=== PATIENT | male | born 1955 | race Caucasian/White ===

== ENCOUNTER 2024-05-21 13:08 | Outpatient (CLI) | payer MEDICARE, OTHER, SELFPAY ==
--- NOTE | ~2024-05-21 | PE_ITS ---
EXAMINATION: PET_PETPSMAST_PT DATE: 05/21/2024 15:25 INDICATION: Prostate cancer TECHNIQUE: 5.812 mCi of Illucix Ga-[id number]) was administered i.v. Low dose computed meredith graphy (CT) images were acquired from the base of the brain to the base of the brain to the proximal thighs for attenuation correction and anatomic localization. Positron emission tomography (PET) image s were acquired in the same distribution beginning 82 minutes after injection. Images including fused PET/CT images were reconstructed in axial, coronal, and sagittal planes. Automated exposure control technique was employed. The dose-length product was 1246.95mGy-cm. COMPARISON: None FINDINGS: Head/neck: Typical pattern of symmetric physiologic increased activity in the lacrimal, parotid and submandibula r glands as well as along the mucosa of the nasal and oral cavities, pharynx and hypopharynx. No path ologically enlarged cervical lymphadenopathy or suspicious foci of increased uptake in the visualized head or neck. Chest: Calcified right middle lobe nodule and calcified mediastinal lymph nodes consistent with old granulom atous disease. No suspicious pulmonary nodules, pneumonia, pulmonary edema or pleural effusion. Heart size normal. Atherosclerotic coronary artery calcific lesion. No pericardial effusion. Thoracic aort a normal in caliber. Abdomen/pelvis/proximal thighs: Physiologic renal accumulation and excretion of activity in the kidneys, bladder and along portions o f ureters. Prostatomegaly measuring 5.0 x 3.6 cm with regions of increased uptake bilaterally in the posterior prostate with maximal SUV of 5.4 on the right and large region with maximal severe of 6.3 o n the left consistent with reported biopsy-proven prostate cancer. Normal degree and slightly heterog enous pattern of increased uptake throughout the liver and spleen without radiologic correlate or dom inant PSMA avid lesion. Cholecystectomy clips at the gallbladder fossa. The pancreas and bilateral ad renal glands are normal. Moderate uptake scattered throughout the bowels with typical duodenal and pr oximal jejunal predominance and without radiologic correlate, also likely physiologic. No other abnor mal foci of increased uptake or pathologically enlarged lymphadenopathy in the abdomen, pelvis or pro ximal thighs. Musculoskeletal: L5 spondylolisthesis with bilateral pars in particular is defects and 10 mm anterolisthesis on S1. No suspicious lytic, blastic or PSA may avid bone lesions to suggest metastatic disease. IMPRESSION: 1. 2 regions of increased uptake in the posterior prostate, the larger and more intense on the left c onsistent with primary prostate cancer. No lesion suspicious for metastatic disease in the neck, ches t, abdomen or pelvis. Reviewed, dictated and finalized at location A. [employer] IMPRESSION: 1. 2 regions of increased uptake in the posterior prostate, the larger and more intense on the left consistent with primary prostate cancer. No lesion suspici ous for metastatic disease in the neck, chest, abdomen or pelvis.
--- OUTSIDE RECORDS SUMMARY | 2024-05-21 13:56 | XMS_ITS | Patient Health Summary ---
Author Organization [facility] Address [address] [place] [address] Care Team Providers [employer] Name Role Phone Kaela Chacon DARSHAN-SOUND EFFECTS TECHNICIAN Primary Care Provider Note from [facility],non-owned Affiliates and Associated Physician Practices is amultiple site organization consisting of ambulatory clinics and hospital sitesin [place], [place], [place] and [place]. This disclosure is being madepursuant to the Care Everywhere program and may not contain all information available regarding this patient. Last updated 17.[facility] Allergies No known active allergies Medications * Be aware that medications may not be up to date on this document. Alwaysverify current medications with the patient. * aspirin (Aspirin) 81 MG chew tablet(Started 12/08/2022) Take 1 (one) tablet by mouth once daily * atropine 1 % ophthalmic solution(Started 01/13/2023) Instill 1 (one) drop into left eye 3 times daily 2 refills by 01/13/2024 * brimonidine (Alphagan) 0.2 % ophthalmic solution(Started 01/13/2023) Instill 1 (one) drop into left eye 3 times daily 4 refills by 01/13/2024 * dorzolamide-timolol (Cosopt) 22.3-6.8 MG/ML ophthalmic solution(Started 01/13/2023) Instill 1 (one) drop into left eye 3 times daily 4 refills by 01/13/2024 * Cholecalciferol 125 MCG (5000 UT)(Started 12/22/2022) Take 125 mcg by mouth once daily * vitamin B-12 (Cyanocobalamin) 500 MCG tablet(Started 12/22/2022) Take 2 (two) tablets by mouth once daily * rosuvastatin (Crestor) 40 MG tablet(Started 01/02/2023) Take 1 (one) tablet by mouth once daily * lisinopril (Prinivil; Zestril) 10 MG tablet(Started 03/10/2023) Take 1 (one) tablet by mouth once daily * gabapentin (Neurontin) 300 MG capsule(Started 07/25/2023) Take 1 (one) capsule by mouth every 12 hours Reasons: Restless Leg Syndrome * acetaminophen (Tylenol) 325 MG tablet(Started 07/25/2023) Take 2 (two) tablets by mouth every 6 hours as needed Maximum allowable Acetaminophen amount = 4 Grams (4000 mg) / 24 hours. * ondansetron, disintegrating, (Zofran ODT) 4 MG tablet(Started 07/25/2023) Take 1 (one) tablet by mouth every 6 hours as needed for Nausea/Vomiting Allow tablet to dissolve on the tongue * niMODipine (Nimotop) 30 MG capsule(Started 07/25/2023) Take 2 (two) capsules by mouth every 4 hours * polyethylene glycol 3350 (Miralax) 17 g packet(Started 07/26/2023) Take 17 (seventeen) g by mouth once daily * senna (Senokot) 8.6 MG tablet(Started 07/26/2023) Take 1 (one) tablet by mouth once daily * metoclopramide (Reglan) injection(Started 07/25/2023) 1 mL by Intravenous route every 6 hours as needed for Nausea/Vomiting * baclofen (Lioresal) 5 MG TABS(Started 07/26/2023) Take 0.5 (one-half) tablet by mouth once daily * prednisoLONE acetate (Pred Forte) 1 % ophthalmic suspension(Started 02/02/2024) INSTILL 1 DROP INTO LEFT EYE THREE TIMES DAILY * lisinopril (Prinivil; Zestril) 2.5 MG tablet Take 1 (one) tablet by mouth once daily Active Problems Problem Noted Date Diagnosed Date Nontraumatic intracerebral h emorrhage, unspecified cerebral location, unspecified laterality 07/10/2023 Central retinal artery occlusion of left eye 08/2022 Neovascular glaucoma, left, 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 Glaucoma suspect, right 01/12/2023 Weakness 12/02/2022 Hypertension, unspecified type 12/02/2022 Facial droop 12/02/2022 Acute ischemic left MCA stroke 12/02/2022 Right sided weakness 12/02/2022 Received tissue plasminogen activator (tPA) less than 24 hours prior to arrival 12/02/2022 Social History Tobacco Use Types Packs/Day Years Used Date Smoking Tobacco: Former Cigarettes 0.3 40.6 1 983 - 12/02/2022 Smokeless Tobacco: Never Tobacco Cessation:Counseling Given: No Alcohol Use Standard Drinks/Week Comments Not Currently 10 (1 standard drink = 0.6 oz pu re alcohol) AUDIT-C Answer Date Recorded Q1: How often do you have a drink containing alcohol? Never 02/08/2024 Q2: How many drinks containi ng alcohol do you have on a typical day when you are drinking? Patient does not drink Q3: How often do you have si x or more drinks on one occasion? Never 02/08/2024 Overall Financial Resource Strain (CARDIA) Answe r Date Recorded How hard is it for you to pa y for the very basics like food, housing, medical care, and heating? Not very hard 07/11/2023 PHQ-2 Answer Date Recorded Patient Health Questionnaire-2 Score 0 07/12/2023 [facility] - Occupational Stress Questionnaire Answer Date Recorded Do you feel stress - tense, restless, nervous, or anxious, or unable to sleep at night because your mind is troubled all the time - these days? Not at all 07/11/2023 Hunger Vital Sign Answer Date Recorded Within the past 12 months, y ou worried that your food would run out before you got the money to buy more. Never true 07/11/19 24 Within the past 12 months, t he food you bought just didn't last and you didn't have money to get more. Never true 07/11/2023 PRAPARE - Transportation Answer Date Re corded In the past 12 months, has l ack of transportation kept you from medical appointments or from getting medications? No 05/2023 In the past 12 months, has l ack of transportation kept you from meetings, work, or from getting things needed for daily living? No 07/11/2023 Housing Stability Vital Sign Answer Chris e Recorded In the last 12 months, was t here a time when you were not able to pay the mortgage or rent on time? No 07/11/2023 In the last 12 months, how many places have you lived? 1 07/11/2023 In the last 12 months, was t here a time when you did not have a steady place to sleep or slept in a jail (including now)? No 07/11/2023 Sex and Gender Information Value Date Recorded Sex Assigned at Not on file Gender Identity Not on file Sexual Orientation Not on file Last Filed Vital Signs Vital Sign Reading Time Taken Comments Blood Pressure 124/63 04/24/2024 10:01 AM AUTOMOTIVE ENGINEERING TECHNICIAN Pulse 72 04/24/2024 9:51 AM AUTOMOTIVE ENGINEERING TECHNICIAN Temperature 36.4 C (97.5 F) 04/24/2024 9:51 AM AUTOMOTIVE ENGINEERING TECHNICIAN Respiratory Rate 12 04/24/2024 9:51 AM AUTOMOTIVE ENGINEERING TECHNICIAN Oxygen Saturation 96% 04/24/2024 9:51 AM AUTOMOTIVE ENGINEERING TECHNICIAN Inhaled Oxygen Concentration - - Weight 98.3 kg (216 lb 12.8 oz) 04/24/2024 8:14 AM AUTOMOTIVE ENGINEERING TECHNICIAN Height 185.4 cm (6' 1 ) 04/24/2024 8:14 AM AUTOMOTIVE ENGINEERING TECHNICIAN Body Mass Index 28.6 04/24/2024 8:14 AM AUTOMOTIVE ENGINEERING TECHNICIAN Medical Devices Implanted Type Area Wardrobe Attendant Device Identifier Shelf Expiration Date Model / Serial / Lot Coil Hydroframe Hdrcl Vtrk 6cm 3mm 10 Implanted:Qty: 1 on 07/12/2023 by Daren Rudolph MD at [facility] Right: [employer] 11/07/2026 [id number] / / [id number] Procedures * AR CILIARY BDY DESTRUC; CYCLOPHOTOCOAG TRANSSCLERAL(Performed 04/24/2024) Performed for Neovascular glaucoma, left, severe stage * CT ANGIO BRAIN(Performed 02/20/2024) Performed for Cerebral aneurysm (HCC) * IR CAROTID CEREBRAL ANGIOGRAM(Performed 02/08/2024) Performed for Cerebral aneurysm (HCC) * BASIC METABOLIC PANEL (CALCIUM TOTAL)(Performed 02/08/2024) Performed for Cerebral aneurysm (HCC) * PT-INR SLH(Performed 02/08/2024) Performed for Cerebral aneurysm (HCC), Other specified hemorrhagic conditions (HCC) * CBC W/O DIFFERENTIAL(Performed 02/08/2024) Performed for Cerebral aneurysm (HCC) * CT HEAD WO CONTRAST(Performed 09/05/2023) Performed for Cerebral aneurysm (HCC) * MAGNESIUM BLOOD(Performed 07/26/2023) Performed for Nontraumatic intracerebral hemorrhage, unspecified cerebral location, unspecified laterality (HCC) * PHOSPHORUS BLOOD(Performed 07/26/2023) Performed for Nontraumatic intracerebral hemorrhage, unspecified cerebral location, unspecified laterality (HCC) * CBC W/O DIFFERENTIAL(Performed 07/26/2023) Performed for Nontraumatic intracerebral hemorrhage, unspecified cerebral location, unspecified laterality (HCC) * BASIC METABOLIC PANEL (CALCIUM TOTAL)(Performed 07/26/2023) Performed for Nontraumatic intracerebral hemorrhage, unspecified cerebral location, unspecified laterality (HCC) * MAGNESIUM BLOOD(Performed 07/25/2023) Performed for Nontraumatic intracerebral hemorrhage, unspecified cerebral location, unspecified laterality (HCC) * PHOSPHORUS BLOOD(Performed 07/25/2023) Performed for Nontraumatic intracerebral hemorrhage, unspecified cerebral location, unspecified laterality (HCC) * CBC W/O DIFFERENTIAL(Performed 07/25/2023) Performed for Nontraumatic intracerebral hemorrhage, unspecified cerebral location, unspecified laterality (HCC) * BASIC METABOLIC PANEL (CALCIUM TOTAL)(Performed 07/25/2023) Performed for Nontraumatic intracerebral hemorrhage, unspecified cerebral location, unspecified laterality (HCC) * MAGNESIUM BLOOD(Performed 07/23/2023) Performed for Nontraumatic intracerebral hemorrhage, unspecified cerebral location, unspecified laterality (HCC) * PHOSPHORUS BLOOD(Performed 07/23/2023) Performed for Nontraumatic intracerebral hemorrhage, unspecified cerebral location, unspecified laterality (HCC) * CBC W/O DIFFERENTIAL(Performed 07/23/2023) Performed for Nontraumatic intracerebral hemorrhage, unspecified cerebral location, unspecified laterality (HCC) * BASIC METABOLIC PANEL (CALCIUM TOTAL)(Performed 07/23/2023) Performed for Nontraumatic intracerebral hemorrhage, unspecified cerebral location, unspecified laterality (HCC) * GLUCOSE - POINT OF CARE(Performed 07/23/2023) * GLUCOSE - POINT OF CARE(Performed 07/23/2023) * MAGNESIUM BLOOD(Performed 07/22/2023) Performed for Nontraumatic intracerebral hemorrhage, unspecified cerebral location, unspecified laterality (HCC) * PHOSPHORUS BLOOD(Performed 07/22/2023) Performed for Nontraumatic intracerebral hemorrhage, unspecified cerebral location, unspecified laterality (HCC) * CBC W/O DIFFERENTIAL(Performed 07/22/2023) Performed for Nontraumatic intracerebral hemorrhage, unspecified cerebral location, unspecified laterality (HCC) * BASIC METABOLIC PANEL (CALCIUM TOTAL)(Performed 07/22/2023) Performed for Nontraumatic intracerebral hemorrhage, unspecified cerebral location, unspecified laterality (HCC) * MAGNESIUM BLOOD(Performed 07/21/2023) Performed for Nontraumatic intracerebral hemorrhage, unspecified cerebral location, unspecified laterality (HCC) * PHOSPHORUS BLOOD(Performed 07/21/2023) Performed for Nontraumatic intracerebral hemorrhage, unspecified cerebral location, unspecified laterality (HCC) * CBC W/O DIFFERENTIAL(Performed 07/21/2023) Performed for Nontraumatic intracerebral hemorrhage, unspecified cerebral location, unspecified laterality (HCC) * BASIC METABOLIC PANEL (CALCIUM TOTAL)(Performed 07/21/2023) Performed for Nontraumatic intracerebral hemorrhage, unspecified cerebral location, unspecified laterality (HCC) * VAS TRANSCRANIAL DOPPLER COMP(Performed 07/21/2023) Performed for Right sided weakness * MAGNESIUM BLOOD(Performed 07/20/2023) Performed for Nontraumatic intracerebral hemorrhage, unspecified cerebral location, unspecified laterality (HCC) * PHOSPHORUS BLOOD(Performed 07/20/2023) Performed for Nontraumatic intracerebral hemorrhage, unspecified cerebral location, unspecified laterality (HCC) * CBC W/O DIFFERENTIAL(Performed 07/20/2023) Performed for Nontraumatic intracerebral hemorrhage, unspecified cerebral location, unspecified laterality (HCC) * BASIC METABOLIC PANEL (CALCIUM TOTAL)(Performed 07/20/2023) Performed for Nontraumatic intracerebral hemorrhage, unspecified cerebral location, unspecified laterality (HCC) * VAS TRANSCRANIAL DOPPLER COMP(Performed 07/20/2023) Performed for Right sided weakness * MAGNESIUM BLOOD(Performed 07/19/2023) Performed for Nontraumatic intracerebral hemorrhage, unspecified cerebral location, unspecified laterality (HCC) * PHOSPHORUS BLOOD(Performed 07/19/2023) Performed for Nontraumatic intracerebral hemorrhage, unspecified cerebral location, unspecified laterality (HCC) * CBC W/O DIFFERENTIAL(Performed 07/19/2023) Performed for Nontraumatic intracerebral hemorrhage, unspecified cerebral location, unspecified laterality (HCC) * BASIC METABOLIC PANEL (CALCIUM TOTAL)(Performed 07/19/2023) Performed for Nontraumatic intracerebral hemorrhage, unspecified cerebral location, unspecified laterality (HCC) * VAS TRANSCRANIAL DOPPLER COMP(Performed 07/19/2023) Performed for Right sided weakness * MAGNESIUM BLOOD(Performed 07/18/2023) Performed for Nontraumatic intracerebral hemorrhage, unspecified cerebral location, unspecified laterality (HCC) * PHOSPHORUS BLOOD(Performed 07/18/2023) Performed for Nontraumatic intracerebral hemorrhage, unspecified cerebral location, unspecified laterality (HCC) * CBC W/O DIFFERENTIAL(Performed 07/18/2023) Performed for Nontraumatic intracerebral hemorrhage, unspecified cerebral location, unspecified laterality (HCC) * BASIC METABOLIC PANEL (CALCIUM TOTAL)(Performed 07/18/2023) Performed for Nontraumatic intracerebral hemorrhage, unspecified cerebral location, unspecified laterality (HCC) * VAS TRANSCRANIAL DOPPLER COMP(Performed 07/18/2023) Performed for Right sided weakness * MAGNESIUM BLOOD(Performed 07/18/2023) Performed for Nontraumatic intracerebral hemorrhage, unspecified cerebral location, unspecified laterality (HCC) * PHOSPHORUS BLOOD(Performed 07/18/2023) Performed for Nontraumatic intracerebral hemorrhage, unspecified cerebral location, unspecified laterality (HCC) * CBC W/O DIFFERENTIAL(Performed 07/18/2023) Performed for Nontraumatic intracerebral hemorrhage, unspecified cerebral location, unspecified laterality (HCC) * BASIC METABOLIC PANEL (CALCIUM TOTAL)(Performed 07/18/2023) Performed for Nontraumatic intracerebral hemorrhage, unspecified cerebral location, unspecified laterality (HCC) * VAS TRANSCRANIAL DOPPLER COMP(Performed 07/17/2023) Performed for Cerebral aneurysm (HCC) * MAGNESIUM BLOOD(Performed 07/17/2023) Performed for Nontraumatic intracerebral hemorrhage, unspecified cerebral location, unspecified laterality (HCC) * PHOSPHORUS BLOOD(Performed 07/17/2023) Performed for Nontraumatic intracerebral hemorrhage, unspecified cerebral location, unspecified laterality (HCC) * CBC W/O DIFFERENTIAL(Performed 07/17/2023) Performed for Nontraumatic intracerebral hemorrhage, unspecified cerebral location, unspecified laterality (HCC) * BASIC METABOLIC PANEL (CALCIUM TOTAL)(Performed 07/17/2023) Performed for Nontraumatic intracerebral hemorrhage, unspecified cerebral location, unspecified laterality (HCC) * MAGNESIUM BLOOD(Performed 07/16/2023) Performed for Nontraumatic intracerebral hemorrhage, unspecified cerebral location, unspecified laterality (HCC) * PHOSPHORUS BLOOD(Performed 07/16/2023) Performed for Nontraumatic intracerebral hemorrhage, unspecified cerebral location, unspecified laterality (HCC) * CBC W/O DIFFERENTIAL(Performed 07/16/2023) Performed for Nontraumatic intracerebral hemorrhage, unspecified cerebral location, unspecified laterality (HCC) * BASIC METABOLIC PANEL (CALCIUM TOTAL)(Performed 07/16/2023) Performed for Nontraumatic intracerebral hemorrhage, unspecified cerebral location, unspecified laterality (HCC) * CT ANGIO BRAIN AND NECK(Performed 07/14/2023) Performed for Right sided weakness * MAGNESIUM BLOOD(Performed 07/14/2023) Performed for Nontraumatic intracerebral hemorrhage, unspecified cerebral location, unspecified laterality (HCC) * PHOSPHORUS BLOOD(Performed 07/14/2023) Performed for Nontraumatic intracerebral hemorrhage, unspecified cerebral location, unspecified laterality (HCC) * CBC W/O DIFFERENTIAL(Performed 07/14/2023) Performed for Nontraumatic intracerebral hemorrhage, unspecified cerebral location, unspecified laterality (HCC) * BASIC METABOLIC PANEL (CALCIUM TOTAL)(Performed 07/14/2023) Performed for Nontraumatic intracerebral hemorrhage, unspecified cerebral location, unspecified laterality (HCC) * CT HEAD WO CONTRAST(Performed 07/14/2023) Performed for Nontraumatic intracerebral hemorrhage, unspecified cerebral location, unspecified laterality (HCC) * VAS TRANSCRANIAL DOPPLER COMP(Performed 07/14/2023) Performed for Nontraumatic intracerebral hemorrhage, unspecified cerebral location, unspecified laterality (HCC) * MAGNESIUM BLOOD(Performed 07/14/2023) Performed for Nontraumatic intracerebral hemorrhage, unspecified cerebral location, unspecified laterality (HCC) * PHOSPHORUS BLOOD(Performed 07/14/2023) Performed for Nontraumatic intracerebral hemorrhage, unspecified cerebral location, unspecified laterality (HCC) * CBC W/O DIFFERENTIAL(Performed 07/14/2023) Performed for Nontraumatic intracerebral hemorrhage, unspecified cerebral location, unspecified laterality (HCC) * BASIC METABOLIC PANEL (CALCIUM TOTAL)(Performed 07/14/2023) Performed for Nontraumatic intracerebral hemorrhage, unspecified cerebral location, unspecified laterality (HCC) * VAS TRANSCRANIAL DOPPLER COMP(Performed 07/13/2023) Performed for Nontraumatic intracerebral hemorrhage, unspecified cerebral location, unspecified laterality (HCC), Cerebral aneurysm (HCC) * MAGNESIUM BLOOD(Performed 07/12/2023) Performed for Nontraumatic intracerebral hemorrhage, unspecified cerebral location, unspecified laterality (HCC) * PHOSPHORUS BLOOD(Performed 07/12/2023) Performed for Nontraumatic intracerebral hemorrhage, unspecified cerebral location, unspecified laterality (HCC) * CBC W/O DIFFERENTIAL(Performed 07/12/2023) Performed for Nontraumatic intracerebral hemorrhage, unspecified cerebral location, unspecified laterality (HCC) * BASIC METABOLIC PANEL (CALCIUM TOTAL)(Performed 07/12/2023) Performed for Nontraumatic intracerebral hemorrhage, unspecified cerebral location, unspecified laterality (HCC) * VAS TRANSCRANIAL DOPPLER COMP(Performed 07/12/2023) Performed for Nontraumatic intracerebral hemorrhage, unspecified cerebral location, unspecified laterality (HCC), Cerebral aneurysm (HCC) * IR CAROTID CEREBRAL ANGIOGRAM(Performed 07/12/2023) Performed for Nontraumatic intracerebral hemorrhage, unspecified cerebral location, unspecified laterality (HCC) * ENDOTRACHEAL TUBE NOTE(Performed 07/12/2023) * ARTERIAL LINE NOTE(Performed 07/12/2023) * MAGNESIUM BLOOD(Performed 07/12/2023) Performed for Nontraumatic intracerebral hemorrhage, unspecified cerebral location, unspecified laterality (HCC) * PHOSPHORUS BLOOD(Performed 07/12/2023) Performed for Nontraumatic intracerebral hemorrhage, unspecified cerebral location, unspecified laterality (HCC) * CBC W/O DIFFERENTIAL(Performed 07/12/2023) Performed for Nontraumatic intracerebral hemorrhage, unspecified cerebral location, unspecified laterality (HCC) * BASIC METABOLIC PANEL (CALCIUM TOTAL)(Performed 07/12/2023) Performed for Nontraumatic intracerebral hemorrhage, unspecified cerebral location, unspecified laterality (HCC) * MRI ANGIO BRAIN ARTERIAL WO CONT(Performed 07/11/2023) Performed for Cerebral aneurysm (HCC) * MRI BRAIN WO CONTRAST(Performed 07/11/2023) Performed for Nontraumatic intracerebral hemorrhage, unspecified cerebral location, unspecified laterality (HCC) * CT ANGIO BRAIN AND NECK(Performed 07/11/2023) Performed for Nontraumatic intracerebral hemorrhage, unspecified cerebral location, unspecified laterality (HCC) * PHOSPHORUS BLOOD(Performed 07/11/2023) Performed for Nontraumatic intracerebral hemorrhage, unspecified cerebral location, unspecified laterality (HCC) * MAGNESIUM BLOOD(Performed 07/11/2023) Performed for Nontraumatic intracerebral hemorrhage, unspecified cerebral location, unspecified laterality (HCC) * PTT SLH(Performed 07/11/2023) Performed for Nontraumatic intracerebral hemorrhage, unspecified cerebral location, unspecified laterality (HCC) * PT-INR SLH(Performed 07/11/2023) Performed for Nontraumatic intracerebral hemorrhage, unspecified cerebral location, unspecified laterality (HCC) * CBC W AUTO DIFFERENTIAL(Performed 07/11/2023) Performed for Nontraumatic intracerebral hemorrhage, unspecified cerebral location, unspecified laterality (HCC) * BASIC METABOLIC PANEL (CALCIUM TOTAL)(Performed 07/11/2023) Performed for Nontraumatic intracerebral hemorrhage, unspecified cerebral location, unspecified laterality (HCC) * TROPONIN-I HIGH SENSITIVE REFLEX 1HOUR(Performed 07/10/2023) * GLUCOSE - POINT OF CARE(Performed 07/10/2023) * TYPE + SCREEN PANEL(Performed 07/10/2023) * TROPONIN-I HIGH SENSITIVE BASELINE + 1HR(Performed 07/10/2023) * PT-INR SLH(Performed 07/10/2023) * COMPREHENSIVE METABOLIC PANEL(Performed 07/10/2023) * CBC W AUTO DIFFERENTIAL(Performed 07/10/2023) * CT ANGIO BRAIN AND NECK(Performed 03/13/2023) Performed for Cerebrovascular accident (CVA), unspecified mechanism (HCC) * CREATININE - POCT INTERFACED(Performed 03/13/2023) * GLUCOSE - POINT OF CARE(Performed 12/07/2022) * GLUCOSE - POINT OF CARE(Performed 12/07/2022) * GLUCOSE - POINT OF CARE(Performed 12/07/2022) * PHOSPHORUS BLOOD(Performed 12/07/2022) * MAGNESIUM BLOOD(Performed 12/07/2022) * BASIC METABOLIC PANEL (CALCIUM TOTAL)(Performed 12/07/2022) * CBC W/O DIFFERENTIAL(Performed 12/07/2022) * GLUCOSE - POINT OF CARE(Performed 12/06/2022) * GLUCOSE - POINT OF CARE(Performed 12/06/2022) * GLUCOSE - POINT OF CARE(Performed 12/06/2022) * GLUCOSE - POINT OF CARE(Performed 12/06/2022) * PHOSPHORUS BLOOD(Performed 12/06/2022) * MAGNESIUM BLOOD(Performed 12/06/2022) * CBC W/O DIFFERENTIAL(Performed 12/06/2022) * BASIC METABOLIC PANEL (CALCIUM TOTAL)(Performed 12/06/2022) * GLUCOSE - POINT OF CARE(Performed 12/05/2022) * GLUCOSE - POINT OF CARE(Performed 12/05/2022) * CARDIAC EKG ORDER(Performed 12/05/2022) * FL SWALLOWING FUNCTION STUDY(Performed 12/05/2022) Performed for Acute ischemic left MCA stroke (HCC) * HEMOGLOBIN A1C(Performed 12/05/2022) * LIPID PROFILE(Performed 12/05/2022) * GLUCOSE - POINT OF CARE(Performed 12/05/2022) * VAS CAROTID DUPLEX LTD(Performed 12/05/2022) Performed for Acute ischemic left MCA stroke (HCC) * VAS TRANSCRANIAL DOPPLER COMP(Performed 12/05/2022) Performed for Acute ischemic left MCA stroke (HCC) * XR CHEST 1VW PORTABLE(Performed 12/05/2022) Performed for Weakness * GLUCOSE - POINT OF CARE(Performed 12/05/2022) * PHOSPHORUS BLOOD(Performed 12/05/2022) * MAGNESIUM BLOOD(Performed 12/05/2022) * CBC W/O DIFFERENTIAL(Performed 12/05/2022) * BASIC METABOLIC PANEL (CALCIUM TOTAL)(Performed 12/05/2022) * GLUCOSE - POINT OF CARE(Performed 12/04/2022) * GLUCOSE - POINT OF CARE(Performed 12/04/2022) * GLUCOSE - POINT OF CARE(Performed 12/04/2022) * XR ABDOMEN KUB PORTABLE(Performed 12/04/2022) Performed for Acute ischemic left MCA stroke (HCC) * XR ABDOMEN KUB PORTABLE(Performed 12/04/2022) Performed for Acute ischemic left MCA stroke (HCC) * XR ABDOMEN KUB PORTABLE(Performed 12/04/2022) Performed for Acute ischemic left MCA stroke (HCC) * PHOSPHORUS BLOOD(Performed 12/04/2022) * MAGNESIUM BLOOD(Performed 12/04/2022) * CBC W/O DIFFERENTIAL(Performed 12/04/2022) * BASIC METABOLIC PANEL (CALCIUM TOTAL)(Performed 12/04/2022) * XR CHEST 1VW PORTABLE(Performed 12/03/2022) Performed for Acute ischemic left MCA stroke (HCC) * GLUCOSE - POINT OF CARE(Performed 12/03/2022) * XR ABDOMEN KUB(Performed 12/03/2022) Performed for Acute ischemic left MCA stroke (HCC) * GLUCOSE - POINT OF CARE(Performed 12/03/2022) * TROPONIN-I HIGH SENSITIVE REFLEX 1HOUR(Performed 12/03/2022) * TROPONIN-I HIGH SENSITIVE BASELINE + 1HR(Performed 12/03/2022) * GLUCOSE - POINT OF CARE(Performed 12/03/2022) * GLUCOSE - POINT OF CARE(Performed 12/03/2022) * CT HEAD WO CONTRAST(Performed 12/03/2022) Performed for Weakness * BLOOD TYPE VERIFICATION(Performed 12/03/2022) * PHOSPHORUS BLOOD(Performed 12/02/2022) * MAGNESIUM BLOOD(Performed 12/02/2022) * CBC W/O DIFFERENTIAL(Performed 12/02/2022) * BASIC METABOLIC PANEL (CALCIUM TOTAL)(Performed 12/02/2022) * GLUCOSE - POINT OF CARE(Performed 12/02/2022) * MRI BRAIN WO CONTRAST(Performed 12/02/2022) Performed for Acute ischemic left MCA stroke (HCC) * ECHO COMPLETE W CONTRAST W BUBBLE STUDY(Performed 12/02/2022) Performed for Acute ischemic left MCA stroke (HCC) * CT CEREBRAL PERFUSION ANALYSIS(Performed 12/02/2022) Performed for Weakness * CT ANGIO BRAIN NECK STROKE(Performed 12/02/2022) Performed for Weakness * CT BRAIN STROKE(Performed 12/02/2022) Performed for Weakness * IR INTRACRANIAL MECH THROMBECT(Performed 12/02/2022) Performed for Acute ischemic left MCA stroke (HCC) * ARTERIAL LINE NOTE(Performed 12/02/2022) * ENDOTRACHEAL TUBE NOTE(Performed 12/02/2022) * TYPE + SCREEN PANEL(Performed 12/02/2022) * PT-INR [facility](Performed 12/02/2022) * COMPREHENSIVE METABOLIC PANEL(Performed 12/02/2022) * CBC W AUTO DIFFERENTIAL(Performed 12/02/2022) * EKG 12-LEAD(Performed 12/02/2022) Performed for Weakness Results * CT ANGIO BRAIN (02/20/2024 9:51 AM AUTOMOTIVE ENGINEERING TECHNICIAN) Anatomical Region Laterality Modality Head Computed Tomogra phy 02/20/2024 10:3 2 AM AUTOMOTIVE ENGINEERING TECHNICIAN Impressions 02/20/2024 10:46 AM AUTOMOTIVE ENGINEERING TECHNICIAN IMPRESSION: 1. No acute intracranial hemorrhage. 2. 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 Accounting for the beam hardening artifacts from the embolization coil, no evidence of residual or recurrent aneurysm. 3. 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 > Interpreting Provider: Cailin Swift MD on 02/20/2024 10:46 AM Narrative 02/20/2024 10:46 AM AUTOMOTIVE ENGINEERING TECHNICIAN PROCEDURE: CT ANGIO BRAIN, DATE/TIME OF EXAM: 02/20/2024 9:52 AM, LOCATION [facility] INDICATION: I67.1: Cerebral aneurysm (HCC) ADDITIONAL CLINICAL INFORMATION: Ordering Provider Reason For Exam: Technologist Note: Additional: EXAMINATION: Computed tomographic (CT) angiography of the head without and with contrast TECHNIQUE: CT of the head was performed without contrast according to standard protocol. Then CT angiography of the head was obtained after the uneventful administration of 100 mL Isovue-370 intravenous contrast. Three dimensional postprocessing was performed by the technologist and sent to the workstation for review. COMPARISON: 08/28/2023 and 07/14/2023. FINDINGS: Non-angiographic findings: Redemonstration of an embolization coil in the region of the anterior communicating artery. Some streaky and beam hardening artifacts partially obscure the adjacent structures. No acute intracranial hemorrhage or intra- or extra-axial fluid collections are identified. There is mild cerebral volume loss with associated ex vacuo ventricular dilatation. Redemonstration of chronic infarcts in the left basal ganglia, crenshaw radiata and the left insula. This bar The basal cisterns are patent. No mass effect or midline shift is seen. The garcia-white matter differentiation is normal. The visualized portions of the orbits, paranasal sinuses, and mastoids appear normal. No acute calvarial fracture is identified. Angiographic findings: Redemonstration of complete occlusion of the left internal carotid artery with distal reconstitution at its terminus. Atherosclerotic disease in the distal right ICA without significant stenosis. The anterior cerebral arteries are patent. The middle cerebral arteries are patent. The posterior cerebral arteries are patent. The distal vertebral arteries are patent. The basilar artery is patent patent. Accounting for the beam hardening artifacts from the embolization coil in the anterior communicating artery aneurysm, no evidence of residual or recurrent aneurysm. Procedure Note Cailin Swift MD - 02/20/2024 PROCEDURE: CT ANGIO BRAIN, DATE/TIME OF EXAM: 02/20/2024 9:52 AM, LOCATION [facility] INDICATION: I67.1: Cerebral aneurysm (HCC) ADDITIONAL CLINICAL INFORMATION: Ordering Provider Reason For Exam: Technologist Note: Additional: EXAMINATION: Computed tomographic (CT) angiography of the head withoutand with contrast TECHNIQUE: CT of the head was performed without contrast according to standard protocol. Then CT angiography of the head was obtained afterthe uneventful administration of 100 mL Isovue-370 intravenous contrast.Three dimensional postprocessing was performed by the technologist and sent to the workstation for review. COMPARISON: 08/28/2023 and 07/14/2023. FINDINGS: Non-angiographic findings: Redemonstration of an embolization coil in the region of the anterior communicating artery. Some streaky and beam hardening artifactspartially obscure the adjacent structures. No acute intracranial hemorrhage or intra- or extra-axial fluidcollections are identified. There is mild cerebral volume loss with associated exvacuo ventricular dilatation. Redemonstration of chronic infarcts in the left basal ganglia, crenshaw radiata and the left insula. This bar The basal cisterns are patent. No mass effect or midline shift is seen. The garcia-white matter differentiation is normal. The visualized portions of the orbits, paranasal sinuses, and mastoids appear normal. No acute calvarial fracture is identified. Angiographic findings: Redemonstration of complete occlusion of the left internal carotidartery with distal reconstitution at its terminus. Atherosclerotic disease inthe distal right ICA without significant stenosis. The anterior cerebral arteries are patent. The middle cerebral arteries are patent. The posterior cerebral arteries are patent. The distal vertebral arteriesare patent. The basilar artery is patent patent. Accounting for the beam hardening artifacts from the embolization coilin the anterior communicating artery aneurysm, no evidence of residual or recurrent aneurysm. IMPRESSION: 1. No acute intracranial hemorrhage. 2. 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 Accounting for the beam hardening artifacts from the embolization coil,no evidence of residual or recurrent aneurysm. 3. 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 > Interpreting Provider: Cailin Swift MD on 02/20/2024 10:46 AM Genoveva Wheeler INSURANCE ASSOCIATE-SOUND EFFECTS TECHNICIAN CT ORDERABLE S * IR Carotid Cerebral Angiogram (02/08/2024 10:52 AM CDT) Only the most recent of2 resultswithin the time period is included. 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 Daren Rudolph, was present and performed/supervised the entire procedure. Moderate sedation on this adult patient was ordered by me, administered intravenously in my presence, and monitored by the procedure nurse as an independent trained observer who was present throughout the procedure. The following parameters were monitored: oxygen saturation, heart rate, blood pressure, and response to care. For details on pre-moderate sedation and post-moderate sedation patient evaluation, please review the evaluation forms in [facility]. For details on monitored clinical parameters during the intra-service sedation time, please review the procedure nurse documentation in [facility]. IDaren MD have personally reviewed and interpreted this examination/study. 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 Interval hx has been unremarkable. Plan is for 6 month follow-up cerebral angiogram. Evaluator: Dr. Phong Rudolph Editor Newspaper(s): Nelia Murillo Vessels: Ultrasound Guided Access of Radial Artery Right Radial Artery Angiogram Right Internal Carotid Artery Angiogram: Cerebral Anesthesia: I, Dr. Phong Rudolph was personally present during the entire procedure. The entire procedure was performed under my supervision. Moderate sedation on this adult patient was ordered by the vat operator, administered intravenously in my presence, and monitored by the procedure nurse as an independent trained observer who was present throughout the procedure. The following parameters were monitored: oxygen saturation, heart rate, blood pressure, and response to care. Intra-service sedation start time was 1007 and end time was 1039 during which I was present. Total physician intra-service sedation time was 32 minutes. For details on sedation patient evaluation, please review the evaluation in [facility]. For details on monitored clinical parameters during the intra-service sedation time, please review the procedure nurse documentation in [facility]. Procedural detail: The risks, benefits, and alternatives to procedure were discussed in detail with the patient and his family. These included but were not limited to the risk of blood loss, vessel injury, stroke, renal injury, and contrast allergy. The patient was brought to the biplane angiography suite where he underwent prep and drape procedures. Limited ultrasound of the right radial artery demonstrated a patent vessel. A garcia scale image was documented. The right radial artery was accessed using a micropuncture needle. Following a series of exchanges, a 5 [place]i 11 cm Glidesheath slender was placed in the radial artery. A radial angiogram was performed through the sheath. A spasmolytic cocktail containing 3000u heparin, 2.5mg verapamil, and 200mcg of nitroglycerin was administered. A 5 [place]i Glidecath Oneal 2 diagnostic catheter along with a 0.035 Glidewire was navigated into the aortic arch. The catheter was used to select the right common carotid artery and cerebral angiogram was obtained. All catheters and sheaths were removed from the arterial system. Hemostasis was achieved using a Terumo radial band closure device. Hemostasis was immediate at the end of the closure procedure. The right radial artery pulse was palpable at the end of the closure procedure. The patient tolerated the procedure without immediate complications. He was returned to the recovery area in hemodynamically stable condition and neurologically unchanged. The estimated blood loss was less than 10 mL. A total of 9 minutes of fluoroscopic time and 25 ml of Isovue-300 contrast were utilized for the study. Findings: There was good arterial, capillary, and venous opacification of all angiographic runs. The right common carotid artery angiogram reveals a normal carotid bifurcation. The visualized branches of the external carotid artery are normal in course and caliber. The cervical segment of the internal carotid artery is normal in course and caliber. The internal carotid artery cerebral angiogram reveals a normal course and caliber of the intracranial segments of the internal carotid artery. The middle cerebral artery and anterior cerebral artery are also normal in course and caliber as is the venous drainage. A coil mass in the AComm is visualized with stable appearance and residual aneurysm neck. 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 Interval hx has been unremarkable. Plan is for 6 month follow-up cerebral angiogram. Evaluator: Dr. Phong Rudolph Editor Newspaper(s): Nelia Murillo Vessels: Ultrasound Guided Access of Radial Artery Right Radial Artery Angiogram Right Internal Carotid Artery Angiogram: Cerebral Anesthesia: I, Dr. Phong Rudolph was personally present during the entire procedure.The entire procedure was performed under my supervision. Moderate sedationon this adult patient was ordered by the vat operator, administeredintravenously in my presence, and monitored by the procedure nurse as an independent trained observer who was present throughout the procedure. The following parameters were monitored: oxygen saturation, heart rate, bloodpressure, and response to care. Intra-service sedation start time was 1007 and end time was 1039 during which I was present. Total physician intra-service sedation time was 32 minutes. For details on sedation patientevaluation, please review the evaluation in [facility]. For details on monitored clinical parameters during the intra-service sedation time, please review the procedure nurse documentation in [facility]. Procedural detail: The risks, benefits, and alternatives to procedure were discussed indetail with the patient and his family. These included but were not limited to the risk of blood loss, vessel injury, stroke, renal injury, andcontrast allergy. The patient was brought to the biplane angiography suite where he underwent prep and drape procedures. Limited ultrasound of the rightradial artery demonstrated a patent vessel. A garcia scale image was documented.The right radial artery was accessed using a micropuncture needle. Followinga series of exchanges, a 5 [place]i 11 cm Glidesheath slender was placed inthe radial artery. A radial angiogram was performed through the sheath. A spasmolytic cocktail containing 3000u heparin, 2.5mg verapamil, [id number] of nitroglycerin was administered. A 5 [place]i Glidecath Oneal 2 diagnostic catheter along with a 0.035 Glidewire was navigated into the aortic arch. The catheter was used to select the right common carotid artery and cerebral angiogram was obtained. All catheters and sheaths were removed from the arterial system.Hemostasis was achieved using a Terumo radial band closure device. Hemostasis was immediate at the end of the closure procedure. The right radial artery pulse was palpable at the end of the closure procedure. The patient tolerated the procedure without immediate complications. He was returned to the recovery area in hemodynamically stable conditionand neurologically unchanged. The estimated blood loss was less than 10 mL. A total of 9 minutes of fluoroscopic time and 25 ml of Isovue-300 contrast were utilized for the study. Findings: There was good arterial, capillary, and venous opacification of all angiographic runs. The right common carotid artery angiogram reveals a normal carotid bifurcation. The visualized branches of the external carotid artery are normal in course and caliber. The cervical segment of the internalcarotid artery is normal in course and caliber. The internal carotid artery cerebral angiogram reveals a normal course and caliber of theintracranial segments of the internal carotid artery. The middle cerebral artery and anterior cerebral artery are also normal in course and caliber as is the venous drainage. A coil mass in the AComm is visualized with stable appearance and residual aneurysm neck. Impression: Stable appearance of coiled AComA aneurysm with residual neck ofaneurysm; Krish and Tavares II occlusion I, Dr. Daren Rudolph, was present and performed/supervised theentire procedure. Moderate sedation on this adult patient was ordered by me, administered intravenously in my presence, and monitored by theprocedure nurse as an independent trained observer who was present throughout the procedure. The following parameters were monitored: oxygen saturation, heart rate, blood pressure, and response to care. For details on pre-moderate sedation and post-moderate sedation patient evaluation,please review the evaluation forms in [facility]. For details on monitored clinical parameters during the intra-service sedation time, please review the procedure nurse documentation in [facility]. I, Daren Rudolph MD have personally reviewed and interpreted this examination/study. > Interpreting Provider: Daren Rudolph MD on 02/20/2024 10:52 AM Daren Rudolph MD IR ORDERABLES * PT-INR [facility] (02/08/2024 8:57 AM CDT) Only the most recent of4 resultswithin the time period is included. PT 13.5 12.1 - 14.8 Seconds 02/08/2024 9:26 AM CDT [facility] INR 1.1 See Comment 02/08/2024 9:26 AM CDT [facility] Comment:The suggested therap eutic range for standard coumadin (warfarin) therapy is an INR of 2.0-3.0. For high-risk patients (Mechanical Mitral Valve Prosthesis, etc.), the suggested prophylactic therapeutic range is an INR of 2.5-3.5. Blood BLOOD SPECIMEN / Unknown Venipuncture / Unknown 02/08/2024 8:57 AM CDT 02/08/2024 9:02 AM CDT Azalia Murillo MD LAB - COAGULATION OR DERABLES [facility] [address] [place] [id number], [facility] [phone] * (ABNORMAL) CBC W/O DIFFERENTIAL (02/08/2024 8:57 AM CDT) Only the most recent of21 resultswithin the time period is included. WBC 4.8 4.0 - 10.7 x10E9/L 02/08/2024 9:31 AM CDT [facility] RBC Count 4.51 4.30 - 5.80 x10E12/L 02/08/2024 9:31 AM CDT [facility] Hemoglobin 12.4(L) 13.3 - 17.5 g/dL 02/08/2024 9:31 AM CDT [facility] Hematocrit 36.8(L) 38.7 - 51.1 % 02/08/2024 9:31 AM [facility] MCV 81.6 80.0 - 98.0 fL 02/08/2024 9:31 AM [facility] MCH 27.5 26.7 - 33.6 pg 02/08/2024 9:31 AM [facility] MCHC 33.7 31.7 - 36.3 g/dL 02/08/2024 9:31 AM [facility] RDW-CV 13.6 11.3 - 14.8 % 02/08/2024 9:31 AM [facility] Platelet Count 164 150 - 420 x10E9/L 02/08/2024 9:31 AM [facility] MPV 11.3 7.8 - 11.4 fL 02/08/2024 9:31 AM [facility] Blood BLOOD SPECIMEN / Unknown Venipuncture / Unknown 02/08/2024 8:57 AM CDT 02/08/2024 9:23 AM CDT Azalia Murillo MD LAB - HEMATOLOGY ORD ERABLES [address] [address], [facility] [phone] * BASIC METABOLIC PANEL (CALCIUM TOTAL) (02/08/2024 8:57 AM CDT) Only the most recent of22 resultswithin the time period is included. BUN 17 7 - 26 mg/dL 02/08/2024 9:55 AM [facility] Creatinine 0.77 0.71 - 1.16 mg/dL 02/08/2024 9:55 AM [facility] Sodium 138 136 - 145 mmol/L 02/08/2024 9:55 AM [facility] Potassium 4.1 3.5 - 4.5 mmol/L 02/08/2024 9:55 AM [facility] Chloride 106 98 - 107 mmol/L 02/08/2024 9:55 AM [facility] CO2 24 22 - 29 mmol/L 02/08/2024 9:55 AM [facility] Glucose 90 70 - 99 mg/dL 02/08/2024 9:55 AM T [facility] Calcium 9.1 8.4 - 10.2 mg/dL 02/08/2024 9:55 AM [facility] Anion Gap 8 6 - 16 02/08/2024 9:55 AM T [facility] BUN/Creatinine Ratio 22 7 - 23 02/08/2024 9:55 AM T [facility] Osmolality Calculated 287 275 - 295 mOsm/kg 02/08/2024 9:55 AM T [facility] eGFR by CKD-EPI >90 >=90 mL/min/1.7 3 m2 02/08/2024 9:55 AM T [facility] Blood BLOOD SPECIMEN / Unknown Venipuncture / Unknown 02/08/2024 8:57 AM CDT 02/08/2024 9:23 AM CDT Azalia Murillo MD LAB - CHEMISTRY [facility] Organization Address City/State/ZIP Co de Phone Number [facility] [address] [place] [address], [facility] [phone] * CT HEAD WO CONTRAST (09/05/2023 2:54 PM CDT) Only the most recent of3 resultswithin the time period is included. Anatomical Region Laterality Modality Head Computed Tomogra phy 09/05/2023 3:29 PM CDT Impressions 09/06/2023 1:08 PM CDT IMPRESSION: 1.Complete resolution of previously described subarachnoid hemorrhage. No new intra or extra-axial hemorrhage. 2.Stable appearing moderate size region of encephalomalacia consistent with an old infarct in the left basal ganglial-capsular region extending into the inferior left frontal and lateral temporal lobes. 3.Beam hardening artifact in the anterior sellar/suprasellar region consistent with diffuse aneurysm coiling. 4.Mild cerebral parenchymal volume loss. > Dictated by Stephen Knutson MD (Commercial Horticulture Instructor) I, Greg Johnston MD have personally reviewed and interpreted this examination/study. > Interpreting Provider: Greg Johnston MD on 09/06/2023 1:08 PM Narrative 09/06/2023 1:08 PM CDT PROCEDURE: CT HEAD WO CONTRAST, DATE/TIME OF EXAM: 09/05/2023 2:55 PM, LOCATION [facility] INDICATION: I67.1: Cerebral aneurysm (HCC) EXAMINATION: Computed tomography (CT) of the head without contrast ADDITIONAL CLINICAL INFORMATION: Ordering Provider Reason For Exam: Fu SAH. Patient has history of coiling of anterior communicating artery aneurysm. TECHNIQUE: CT of the head was performed without contrast according to standard protocol. CT dose reduction technique was used, including Automated Exposure Control. COMPARISON: CT abdomen 07/14/2023 FINDINGS: There is no evidence of acute intracranial hemorrhage, mass effect, or midline shift. The ventricles are within normal limits in size. There is mild prominence of cortical sulci of the cerebral hemispheres, and the CSF spaces overlying the, compatible with mild cerebral parenchymal volume loss. There is beam hardening artifact in the anterior sellar/suprasellar region consistent with previous aneurysm coiling. There is a moderate-sized area encephalomalacia in the left basal ganglial capsular region extending into the cortex of the left frontotemporal region. There is some mild ex vacuo dilatation of the left lateral ventricle towards this. Bone window images are negative for depressed skull fracture. Minimal mucous membrane thickening is noted in both ethmoid and left maxillary sinuses. When today's study is compared to the previous brain CT of 14 July 2023, there has been resolution of the residual acute subarachnoid hemorrhage noted in the occipital lobes on the previous study. Otherwise, there has been no major interval change. Procedure Note Greg Johnston MD - 09/06/2023 PROCEDURE: CT HEAD WO CONTRAST, DATE/TIME OF EXAM: 09/05/2023 2:55 PM, LOCATION [facility] INDICATION: I67.1: Cerebral aneurysm (HCC) EXAMINATION: Computed tomography (CT) of the head without contrast ADDITIONAL CLINICAL INFORMATION: Ordering Provider Reason For Exam: Fu SAH. Patient has history ofcoiling of anterior communicating artery aneurysm. TECHNIQUE: CT of the head was performed without contrast according to standard protocol. CT dose reduction technique was used, including Automated Exposure Control. COMPARISON: CT abdomen 07/14/2023 FINDINGS: There is no evidence of acute intracranial hemorrhage, mass effect, or midline shift. The ventricles are within normal limits in size. There is mildprominence of cortical sulci of the cerebral hemispheres, and the CSF spacesoverlying the, compatible with mild cerebral parenchymal volume loss. There is beam hardening artifact in the anterior sellar/suprasellarregion consistent with previous aneurysm coiling. There is a moderate-sized area encephalomalacia in the left basalganglial capsular region extending into the cortex of the left frontotemporal region. There is some mild ex vacuo dilatation of the left lateral ventricle towards this. Bone window images are negative for depressed skull fracture. Minimal mucous membrane thickening is noted in both ethmoid and left maxillary sinuses. When today's study is compared to the previous brain CT of 14 July 2023, there has been resolution of the residual acute subarachnoid hemorrhage noted in the occipital lobes on the previous study. Otherwise, there has been no major interval change. IMPRESSION: 1.Complete resolution of previously described subarachnoid hemorrhage.No new intra or extra-axial hemorrhage. 2.Stable appearing moderate size region of encephalomalacia consistentwith an old infarct in the left basal ganglial-capsular region extending into the inferior left frontal and lateral temporal lobes. 3.Beam hardening artifact in the anterior sellar/suprasellar region consistent with diffuse aneurysm coiling. 4.Mild cerebral parenchymal volume loss. > Dictated by Stephen Knutson MD (Commercial Horticulture Instructor) I, Greg Johnston MD have personally reviewed and interpreted this examination/study. > Interpreting Provider: Greg Johnston MD on 09/06/2023 1:08 PM Filemon Patel MD CT ORDERABLES * PHOSPHORUS BLOOD (07/26/2023 3:11 AM CDT) Only the most recent of21 resultswithin the time period is included. Phosphorus 4.4 2.8 - 5.1 mg/dL 07/26/2023 4:20 AM CDT [facility] Blood BLOOD SPECIMEN / Unknown Lab Venipuncture / Unknown 07/26/2023 3:11 AM CDT 07/26/2023 3:48 AM CDT Carlos Rizzo MD LAB - CHEMISTRY [facility] Organization Address City/State/ZIP Co de Phone Number [facility] [address] [place] [address], [facility] [phone] * MAGNESIUM BLOOD (07/26/2023 3:11 AM CDT) Only the most recent of21 resultswithin the time period is included. Magnesium 1.8 1.6 - 2.6 mg/dL 07/26/2023 4:20 AM CDT [facility] Blood BLOOD SPECIMEN / Unknown Lab Venipuncture / Unknown 07/26/2023 3:11 AM CDT 07/26/2023 3:48 AM CDT Carlos Rizzo MD LAB - CHEMISTRY [facility] Performing Organization Address City/[facility]/ZIP Co de Phone Number [address] [address], [facility] [phone] * GLUCOSE - POINT OF CARE (07/23/2023 4:13 PM CDT) Only the most recent of22 resultswithin the time period is included. Pathologist [facility] Glucose WB/POC 74 70 - 115 mg/dL 07/23/2023 4:14 PM CDT [facility] Specimen Type Arterial 07/23/2023 4:14 PM CDT [facility] Blood BLOOD SPECIMEN / Unknown 07/23/2023 4:13 PM CDT 07/23/2023 4:14 PM CDT Filemon Patel MD LAB - POINT OF CARE ORDERABLES Performing Organization Address City/[facility]/ZIP Co de Phone Number [address] [address], [facility] [phone] * VAS TRANSCRANIAL DOPPLER COMP (07/21/2023 12:03 PM CDT) Only the most recent of9 resultswithin the time period is included. Anatomical Region Laterality Modality Head Intravascular Ul trasound 07/21/2023 11:0 7 AM CDT Narrative Procedure Note Draen Rudolph MD - 07/24/2023 Filemon Patel MD VASCULAR LAB ORDERAB LES * CT ANGIO BRAIN AND NECK (07/14/2023 11:42 PM CDT) Only the most recent of3 resultswithin the time period is included. Anatomical Region Laterality Modality Head Computed Tomogra phy 07/14/2023 11:5 1 PM CDT Impressions 07/15/2023 11:34 AM CDT IMPRESSION: 1.Small volume subarachnoid hemorrhage, unchanged from prior study. 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 4.Evaluation of the angiogram is severely limited secondary to contrast bolus timing. The visualized portions of the intracranial arteries appear patent, without evidence of definite residual aneurysm. 5.Multifocal atherosclerotic disease of the vertebral arteries, with high-grade stenosis at the origin of the left vertebral artery and moderate focal stenosis in the V4 segment of the left vertebral artery. 6.Chronic findings as outlined above. Report dictated by Rolando Morales M.D. (residential property consultant) 07/15/2023 12:06 AM ILynn MD have personally reviewed and interpreted this examination/study. > Interpreting Provider: Lynn Mckeon MD on 07/15/2023 11:34 AM Narrative 07/15/2023 11:34 AM CDT PROCEDURE: CT ANGIO BRAIN AND NECK, DATE/TIME OF EXAM: 07/14/2023 11:42 PM, LOCATION [facility] INDICATION: R53.1: Right sided weakness ADDITIONAL CLINICAL INFORMATION: Ordering Provider Reason For Exam: Fu basilar tip thrombosis EXAMINATION: CT angiogram images of the head and neck acquired with intravenous contrast. Multiplanar reformations acquired. TECHNIQUE: CT angiography of the head and neck was obtained after administration of intravenous contrast. Three dimensional postprocessing was performed by the technologist and sent to the workstation for review. NASCET criteria was utilized for evaluation of carotid stenosis. Additionally, Viz.AI was used for large vessel occlusion detection. CT dose reduction technique was used, including Automated Exposure Control. CONTRAST: IOPAMIDOL 76 % IV SOLN:75 mL COMPARISON: CT head 07/14/2023, CT angiogram brain and neck 07/11/2023, MR angiogram 07/11/2023 FINDINGS: CT HEAD: BRAIN PARENCHYMA: There is redemonstration of a small volume of subarachnoid hemorrhage within the bilateral occipital lobe sulci, right medial frontal lobe, similar in volume compared to prior. No evidence of new acute intracranial hemorrhage, large vascular territory infarct, or mass effect. Scattered and confluent white matter hypodensities, which are nonspecific but likely represents the sequela of chronic microangiopathic change. Mild generalized parenchymal volume loss, which is commensurate for age. Encephalomalacia involving the left basal ganglia, crenshaw radiata, and insula, temporal lobe, consistent with sequelae of prior left MCA territory infarction VENTRICLES/EXTRA-AXIAL SPACES: Mild ex vacuo dilatation of the lateral and third ventricles. No extra-axial collection. Basal cisterns are patent. EXTRACRANIAL STRUCTURES: Normal bones and soft tissues. Mild mucosal thickening in the ethmoid air cells and frontoethmoidal recesses, otherwise the paranasal sinuses and mastoids demonstrate no significant abnormality. Cristina bullosa of the right middle nasal turbinate. Orbits are unremarkable. CTA HEAD: Evaluation is significantly limited by contrast bolus timing. There is significant venous contamination with decreased opacification of the arterial structures. Redemonstration of coil embolization of previously noted anterior communicating artery aneurysm. No definite residual aneurysm within the limits of the study. Limited visualization of the anterior cerebral arteries and distal branches of the bilateral middle cerebral arteries secondary to contrast bolus timing. Visualized portions of the bilateral MCA branches appear patent up to the level of bifurcation.. There is multifocal atherosclerosis involving the distal right internal carotid artery, with mild stenosis, similar to prior study. Redemonstration of nonopacification of the left distal internal carotid artery with reconstitution of the ICA terminus. The basilar artery is well opacified, and without evidence of acute thrombus, within the limits of the study, unchanged compared to prior study.. Focal atherosclerosis of the vertebral arteries are conspicuous on prior study. Posterior cerebral arteries cannot be well evaluated on this study. The dural venous sinuses are well opacified and patent. CTA NECK: GREAT VESSELS: Visualized segments are patent. Mild atherosclerosis of the aortic arch, origin of brachiocephalic artery, and subclavian arteries. RIGHT CCA/ICA: No occlusion. ICA at the carotid bifurcaction with less than 50% stenosis by NASCET criteria secondary to calcific, noncalcific atherosclerosis. Mild atherosclerosis involving the common carotid artery predominantly in the distal portions LEFT CCA/ICA: There is redemonstration of complete occlusion involving the left internal carotid artery, similar to prior. There is mild diffuse atherosclerotic disease involving the left common carotid artery without significant stenosis.. VERTEBRAL ARTERIES: There is redemonstration of multifocal atherosclerosis involving the bilateral vertebral arteries, with moderate to severe at the left vertebral artery origin and moderate focal stenosis in the left V4 segment. Scattered atherosclerotic calcifications are also noted at the origin of right vertebral artery and also in the V2 segments of the bilateral vertebral arteries without significant stenosis. Visualized portions of the basilar artery appears patent. OTHER: Partially imaged lung apices are clear. No neck mass or suspicious lymph nodes. Mild degenerative changes are noted in the cervical spine. Procedure Note Lynn Mckeon MD - 07/15/2023 PROCEDURE: CT ANGIO BRAIN AND NECK, DATE/TIME OF EXAM: 07/14/2023 11:42PM, LOCATION [facility] INDICATION: R53.1: Right sided weakness ADDITIONAL CLINICAL INFORMATION: Ordering Provider Reason For Exam: Fu basilar tip thrombosis EXAMINATION: CT angiogram images of the head and neck acquired with intravenous contrast. Multiplanar reformations acquired. TECHNIQUE: CT angiography of the head and neck was obtained after administration of intravenous contrast. Three dimensional postprocessing was performed by the technologist and sent to the workstation forreview. NASCET criteria was utilized for evaluation of carotid stenosis. Additionally, Viz.AI was used for large vessel occlusion detection. CTdose reduction technique was used, including Automated Exposure Control. CONTRAST: IOPAMIDOL 76 % IV SOLN:75 mL COMPARISON: CT head 07/14/2023, CT angiogram brain and neck 07/11/2023, MR angiogram 07/11/2023 FINDINGS: CT HEAD: BRAIN PARENCHYMA: There is redemonstration of a small volume of subarachnoid hemorrhage within the bilateral occipital lobe sulci, right medial frontal lobe, similar in volume compared to prior. No evidence of new acute intracranial hemorrhage, large vascular territory infarct, or mass effect. Scattered and confluent white matter hypodensities, whichare nonspecific but likely represents the sequela of chronicmicroangiopathic change. Mild generalized parenchymal volume loss, which is commensuratefor age. Encephalomalacia involving the left basal ganglia, crenshaw radiata,and insula, temporal lobe, consistent with sequelae of prior left MCAterritory infarction VENTRICLES/EXTRA-AXIAL SPACES: Mild ex vacuo dilatation of the lateraland third ventricles. No extra-axial collection. Basal cisterns are patent. EXTRACRANIAL STRUCTURES: Normal bones and soft tissues. Mild mucosal thickening in the ethmoid air cells and frontoethmoidal recesses,otherwise the paranasal sinuses and mastoids demonstrate no significantabnormality. Cristina bullosa of the right middle nasal turbinate. Orbits are unremarkable. CTA HEAD: Evaluation is significantly limited by contrast bolus timing. There is significant venous contamination with decreased opacificationof the arterial structures. Redemonstration of coil embolization of previously noted anterior communicating artery aneurysm. No definite residual aneurysm within the limits of the study. Limited visualization of the anterior cerebral arteries and distal branches of the bilateral middle cerebral arteries secondary to contrast bolus timing. Visualized portions of the bilateral MCA branches appear patent up to the level of bifurcation.. There is multifocal atherosclerosis involving the distal right internal carotid artery, with mild stenosis, similar to prior study.Redemonstration of nonopacification of the left distal internal carotid artery with reconstitution of the ICA terminus. The basilar artery is well opacified, and without evidence of acute thrombus, within the limits of the study, unchanged compared to prior study.. Focal atherosclerosis of the vertebral arteries are conspicuouson prior study. Posterior cerebral arteries cannot be well evaluated onthis study. The dural venous sinuses are well opacified and patent. CTA NECK: GREAT VESSELS: Visualized segments are patent. Mild atherosclerosis ofthe aortic arch, origin of brachiocephalic artery, and subclavian arteries. RIGHT CCA/ICA: No occlusion. ICA at the carotid bifurcaction with lessthan 50% stenosis by NASCET criteria secondary to calcific, noncalcific atherosclerosis. Mild atherosclerosis involving the common carotidartery predominantly in the distal portions LEFT CCA/ICA: There is redemonstration of complete occlusion involvingthe left internal carotid artery, similar to prior. There is mild diffuse atherosclerotic disease involving the left common carotid artery without significant stenosis.. VERTEBRAL ARTERIES: There is redemonstration of multifocalatherosclerosis involving the bilateral vertebral arteries, with moderate to severe atthe left vertebral artery origin and moderate focal stenosis in the left V4 segment. Scattered atherosclerotic calcifications are also noted at the origin of right vertebral artery and also in the V2 segments of the bilateral vertebral arteries without significant stenosis. Visualized portions of the basilar artery appears patent. OTHER: Partially imaged lung apices are clear. No neck mass orsuspicious lymph nodes. Mild degenerative changes are noted in the cervical spine. IMPRESSION: 1.Small volume subarachnoid hemorrhage, unchanged from prior study. 2.Redemonstration of coil embolization of an anterior communicatingartery aneurysm. 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 4.Evaluation of the angiogram is severely limited secondary to contrast bolus timing. The visualized portions of the intracranial arteriesappear patent, without evidence of definite residual aneurysm. 5.Multifocal atherosclerotic disease of the vertebral arteries, with high-grade stenosis at the origin of the left vertebral artery andmoderate focal stenosis in the V4 segment of the left vertebral artery. 6.Chronic findings as outlined above. Report dictated by Rolando Morales M.D. (residential property consultant) 07/15/2023 12:06 AM ILynn MD have personally reviewed and interpreted this examination/study. > Interpreting Provider: Lynn Mckeon MD on 07/15/2023 11:34 AM Filemon Patel MD CT ORDERABLES * ETT LINE PERFORMABLE (07/12/2023 10:02 AM CDT) Narrative Isma Prado Anes Asst - 07/12/2023 10:02 AM CDT Isma Prado Anes Asst 07/12/2023 10:03 AM Endotracheal Tube Placement: Patient Location: OR. Intubation Event Date/Time: 07/12/2023 9:37 AM Procedure: intubation (10811). Procedure Section: Sedation: under general anesthesia. Indications for Airway Management: anesthesia Procedure pretreatments used? No Induction: standard IV Patient Position: sniffing Mask Ventilation: not attempted. Blade Type: Cummings Blade Size: 2 Laryngoscopy View: grade 1 (full cords) Tube: endotracheal tube Placement: oral Tube type: cuff - inflated Tube Size (MM): 8 Depth of Insertion (CM): 23 Measured From: lips Cuff volume (mL): 8 Cuff Inflated With: air Number of Attempts: 1. Placement Verified By: direct visualization, bilateral breath sounds, chest auscultation and CO2 monitor CXR Findings: ETT in proper place. Tube secured with: adhesive tape and other-please comment. Dentition unchanged? Yes Difficult Airway? No. Procedure Start Time: 07/12/2023 9:37 AM. Procedure End Time: 07/12/2023 9:41 AM. Procedure Total Time: 4 minutes. Staff Section Anesthesia Provider: Isma Prado Anes Asst, Performed the procedure Provider #1: Sofia Vaughn MD. Sofia Vaughn MD GENERAL ANESTHESI A ORDERABLES * ARTERIAL LINE PERFORMABLE (07/12/2023 10:01 AM CDT) Narrative Isma Prado Anes Asst - 07/12/2023 10:01 AM CDT Isma Prado Anes Asst 07/12/2023 10:02 AM Arterial Line Placement Procedure Note Patient Location: OR. Procedure: Arterial Line (79052). Procedure Section Indications: continuous blood pressure monitoring. Consent: informed consent could not be obtained due to the patient's condition, urgency of situation, and/or lack of family members to sign consent, informed consent was obtained for the procedure, informed consent was obtained for the procedure, including sedation, risks of hemorrhage, hematoma, infection and adverse drug reactions were discussed and a time out was performed for patient safety. Skin Prep: Chloraprep. Orientation: Left. Site: radial. Site Identification: palpation. Sterile Technique: cap, mask and sterile gloves. Gauge: 20. Catheter Length: 1 and 3/4 inch. Catheter Type: Arrow. Seldinger Technique Used? Yes Number of Attempts: 1. Line Secured with: Tegaderm. Procedure Tolerance: tolerated well. Events: none. Procedure Start Time: 07/12/2023 9:40 AM. Procedure End Time: 07/12/2023 9:44 AM. Procedure Total Time: 4 minutes. Patient Sedated? Yes Local Anesthetic Used? No Sedation Types: general anesthesia Staff Section Anesthesia Provider: Sofia Vaughn MD, Performed the procedure Provider #1: Isma Prado Anes Asst. Sofia Vaughn MD GENERAL ANESTHESI A ORDERABLES * MRI ANGIO BRAIN ARTERIAL WO CONT (07/11/2023 1:19 PM CDT) Anatomical Region Laterality Modality Head Magnetic Resonan ce 07/11/2023 1:51 PM CDT Impressions 07/11/2023 5:20 PM CDT IMPRESSION: 1.Redemonstration of scattered subarachnoid hemorrhages along the bilateral cerebral convexities, predominantly in the occipitotemporal sulci and small volume intraventricular, not significantly changed compared to the prior CT. 2.Chronic infarction involving the left basal ganglia, left insula and left crenshaw radiata, not significantly changed compared to prior. No evidence of acute infarction is identified. 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 Report dictated by Guicho Longoria MD (residential property consultant). ISheri MD have personally reviewed and interpreted this examination/study. > Interpreting Provider: Sheri Davila MD on 07/11/2023 5:20 PM Narrative 07/11/2023 5:20 PM CDT PROCEDURE: MRI BRAIN WO CONTRAST, MRI ANGIO BRAIN ARTERIAL WO CONT, DATE/TIME OF EXAM: 07/11/2023 1:18 PM, LOCATION: [facility] INDICATION: I61.9: Nontraumatic intracerebral hemorrhage, unspecified cerebral location, unspecified laterality (HCC) ADDITIONAL CLINICAL INFORMATION: Ordering Provider Reason For Exam: aneurysm, hemorrhage (accession [id number]), aneurysm (accession [id number]) Additional: COMPARISON: CT angiography of brain and neck dated 07/11/2023. DATE: 07/11/2023 1:18 PM EXAMINATION: 1. Magnetic resonance imaging (MRI) of the brain without contrast 2. Magnetic resonance angiography (MRA) of the head without contrast TECHNIQUE: MRI of the brain was performed without contrast according to standard protocol. MR arteriography of the head was performed without contrast utilizing time of flight technique. COMPARISON: CT angiogram brain and neck dated 07/11/2023 at 8:57 AM. FINDINGS: Brain: Redemonstrated small volume subarachnoid hemorrhage involving the bilateral cerebral convexity sulci, interhemispheric fissure and the left sylvian fissure, not significantly changed compared to prior. There is small volume intraventricular hemorrhage within the dependent portions of the occipital horns of the lateral ventricles, bilaterally, not significantly changed in volume compared to the prior. No evidence for hydrocephalus at this time. Redemonstration of chronic encephalomalacia and gliosis involving the left basal ganglia, the left insula and the left crenshaw radiata compatible with chronic infarction. FLAIR hyperintensity and susceptibility artifacts in the left sylvian fissure correlate with hyperdensity seen on the prior CT but may represent small volume blood products or more likely vascular calcifications. Susceptibility artifacts along the tentorium and possibly the cerebellar vermis compatible with chronic hemosiderin deposition. No evidence of acute cerebral infarction is seen. There is mild cerebral volume loss with associated ex vacuo ventricular dilatation. No mass effect or midline shift is seen. Periventricular white matter FLAIR hyperintensities likely represent sequelae of chronic small vessel ischemic disease. Old lacunar infarcts are present in the right basal ganglia. The corpus callosum and sella appear normal. The posterior fossa, brainstem, and craniocervical junction appear grossly unremarkable. Other than mild paranasal sinus disease, the visualized portions of the orbits, paranasal sinuses, and mastoids appear normal. There is an absent flow void within the left ICA terminus, and M1 segment of the left middle cerebral artery. Normal flow voids are demonstrated in the right carotid and basilar artery. The calvarium and visualized cervical spine appear normal. Angiographic findings: There is redemonstration of nonopacification of the left internal carotid artery. There is minimal opacification of the left M1 segment of the left middle cerebral artery, likely via collateral flow through the anterior communicating artery. The anterior and right middle cerebral arteries appear normal. The distal vertebral arteries appear normal. The basilar artery and posterior cerebral arteries are patent. There is an approximate 4 mm saccular aneurysm arising inferiorly from the anterior communicating artery (series 1 image 89). Procedure Note Sheri Davila MD - 07/11/2023 PROCEDURE: MRI BRAIN WO CONTRAST, MRI ANGIO BRAIN ARTERIAL WO CONT, DATE/TIME OF EXAM: 07/11/2023 1:18 PM, LOCATION: [facility] INDICATION: I61.9: Nontraumatic intracerebral hemorrhage, unspecified cerebral location, unspecified laterality (HCC) ADDITIONAL CLINICAL INFORMATION: Ordering Provider Reason For Exam: aneurysm, hemorrhage (accession [id number]), aneurysm (accession [id number]) Additional: COMPARISON: CT angiography of brain and neck dated 07/11/2023. DATE: 07/11/2023 1:18 PM EXAMINATION: 1. Magnetic resonance imaging (MRI) of the brain without contrast 2. Magnetic resonance angiography (MRA) of the head without contrast TECHNIQUE: MRI of the brain was performed without contrast according to standard protocol. MR arteriography of the head was performed without contrast utilizing time of flight technique. COMPARISON: CT angiogram brain and neck dated 07/11/2023 at 8:57 AM. FINDINGS: Brain: Redemonstrated small volume subarachnoid hemorrhage involving thebilateral cerebral convexity sulci, interhemispheric fissure and the left sylvian fissure, not significantly changed compared to prior. There is smallvolume intraventricular hemorrhage within the dependent portions of theoccipital horns of the lateral ventricles, bilaterally, not significantly changedin volume compared to the prior. No evidence for hydrocephalus at thistime. Redemonstration of chronic encephalomalacia and gliosis involving theleft basal ganglia, the left insula and the left crenshaw radiata compatiblewith chronic infarction. FLAIR hyperintensity and susceptibility artifacts in the left sylvian fissure correlate with hyperdensity seen on the priorCT but may represent small volume blood products or more likely vascular calcifications. Susceptibility artifacts along the tentorium andpossibly the cerebellar vermis compatible with chronic hemosiderin deposition. No evidence of acute cerebral infarction is seen. There is mild cerebral volume loss with associated ex vacuo ventricular dilatation. No masseffect or midline shift is seen. Periventricular white matter FLAIR hyperintensities likely represent sequelae of chronic small vesselischemic disease. Old lacunar infarcts are present in the right basal ganglia.The corpus callosum and sella appear normal. The posterior fossa, brainstem, and craniocervical junction appear grossly unremarkable. Other than mild paranasal sinus disease, the visualized portions of the orbits, paranasal sinuses, and mastoids appear normal. There is anabsent flow void within the left ICA terminus, and M1 segment of the leftmiddle cerebral artery. Normal flow voids are demonstrated in the right carotid and basilar artery. The calvarium and visualized cervical spine appear normal. Angiographic findings: There is redemonstration of nonopacification of the left internalcarotid artery. There is minimal opacification of the left M1 segment of theleft middle cerebral artery, likely via collateral flow through the anterior communicating artery. The anterior and right middle cerebral arteries appear normal. The distal vertebral arteries appear normal. The basilar artery and posterior cerebral arteries are patent. There is anapproximate 4 mm saccular aneurysm arising inferiorly from the anteriorcommunicating artery (series 1 image 89). IMPRESSION: 1.Redemonstration of scattered subarachnoid hemorrhages along thebilateral cerebral convexities, predominantly in the occipitotemporal sulci andsmall volume intraventricular, not significantly changed compared to the prior CT. 2.Chronic infarction involving the left basal ganglia, left insula andleft crenshaw radiata, not significantly changed compared to prior. No evidenceof acute infarction is identified. 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 Report dictated by Guicho Longoria MD (residential property consultant). Sheri Kearney MD have personally reviewed and interpretedthis examination/study. > Interpreting Provider: Sheri Davila MD on 07/11/2023 5:20 PM Mis Curtis INSURANCE ASSOCIATE-SOUND EFFECTS TECHNICIAN MR ORDERABLES * MRI BRAIN WO CONTRAST (07/11/2023 1:18 PM CDT) Only the most recent of2 resultswithin the time period is included. Anatomical Region Laterality Modality Head Magnetic Resonan ce 07/11/2023 1:51 PM CDT Impressions 07/11/2023 5:20 PM CDT IMPRESSION: 1.Redemonstration of scattered subarachnoid hemorrhages along the bilateral cerebral convexities, predominantly in the occipitotemporal sulci and small volume intraventricular, not significantly changed compared to the prior CT. 2.Chronic infarction involving the left basal ganglia, left insula and left crenshaw radiata, not significantly changed compared to prior. No evidence of acute infarction is identified. 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 Report dictated by Guicho Longoria MD (residential property consultant). Sheri Kearney MD have personally reviewed and interpreted this examination/study. > Interpreting Provider: Sheri Davila MD on 07/11/2023 5:20 PM Narrative 07/11/2023 5:20 PM CDT PROCEDURE: MRI BRAIN WO CONTRAST, MRI ANGIO BRAIN ARTERIAL WO CONT, DATE/TIME OF EXAM: 07/11/2023 1:18 PM, LOCATION: [facility] INDICATION: I61.9: Nontraumatic intracerebral hemorrhage, unspecified cerebral location, unspecified laterality (HCC) ADDITIONAL CLINICAL INFORMATION: Ordering Provider Reason For Exam: aneurysm, hemorrhage (accession [id number]), aneurysm (accession [id number]) Additional: COMPARISON: CT angiography of brain and neck dated 07/11/2023. DATE: 07/11/2023 1:18 PM EXAMINATION: 1. Magnetic resonance imaging (MRI) of the brain without contrast 2. Magnetic resonance angiography (MRA) of the head without contrast TECHNIQUE: MRI of the brain was performed without contrast according to standard protocol. MR arteriography of the head was performed without contrast utilizing time of flight technique. COMPARISON: CT angiogram brain and neck dated 07/11/2023 at 8:57 AM. FINDINGS: Brain: Redemonstrated small volume subarachnoid hemorrhage involving the bilateral cerebral convexity sulci, interhemispheric fissure and the left sylvian fissure, not significantly changed compared to prior. There is small volume intraventricular hemorrhage within the dependent portions of the occipital horns of the lateral ventricles, bilaterally, not significantly changed in volume compared to the prior. No evidence for hydrocephalus at this time. Redemonstration of chronic encephalomalacia and gliosis involving the left basal ganglia, the left insula and the left crenshaw radiata compatible with chronic infarction. FLAIR hyperintensity and susceptibility artifacts in the left sylvian fissure correlate with hyperdensity seen on the prior CT but may represent small volume blood products or more likely vascular calcifications. Susceptibility artifacts along the tentorium and possibly the cerebellar vermis compatible with chronic hemosiderin deposition. No evidence of acute cerebral infarction is seen. There is mild cerebral volume loss with associated ex vacuo ventricular dilatation. No mass effect or midline shift is seen. Periventricular white matter FLAIR hyperintensities likely represent sequelae of chronic small vessel ischemic disease. Old lacunar infarcts are present in the right basal ganglia. The corpus callosum and sella appear normal. The posterior fossa, brainstem, and craniocervical junction appear grossly unremarkable. Other than mild paranasal sinus disease, the visualized portions of the orbits, paranasal sinuses, and mastoids appear normal. There is an absent flow void within the left ICA terminus, and M1 segment of the left middle cerebral artery. Normal flow voids are demonstrated in the right carotid and basilar artery. The calvarium and visualized cervical spine appear normal. Angiographic findings: There is redemonstration of nonopacification of the left internal carotid artery. There is minimal opacification of the left M1 segment of the left middle cerebral artery, likely via collateral flow through the anterior communicating artery. The anterior and right middle cerebral arteries appear normal. The distal vertebral arteries appear normal. The basilar artery and posterior cerebral arteries are patent. There is an approximate 4 mm saccular aneurysm arising inferiorly from the anterior communicating artery (series 1 image 89). Procedure Note Sheri Davila MD - 07/11/2023 PROCEDURE: MRI BRAIN WO CONTRAST, MRI ANGIO BRAIN ARTERIAL WO CONT, DATE/TIME OF EXAM: 07/11/2023 1:18 PM, LOCATION: [facility] INDICATION: I61.9: Nontraumatic intracerebral hemorrhage, unspecified cerebral location, unspecified laterality (HCC) ADDITIONAL CLINICAL INFORMATION: Ordering Provider Reason For Exam: aneurysm, hemorrhage (accession [id number]), aneurysm (accession [id number]) Additional: COMPARISON: CT angiography of brain and neck dated 07/11/2023. DATE: 07/11/2023 1:18 PM EXAMINATION: 1. Magnetic resonance imaging (MRI) of the brain without contrast 2. Magnetic resonance angiography (MRA) of the head without contrast TECHNIQUE: MRI of the brain was performed without contrast according to standard protocol. MR arteriography of the head was performed without contrast utilizing time of flight technique. COMPARISON: CT angiogram brain and neck dated 07/11/2023 at 8:57 AM. FINDINGS: Brain: Redemonstrated small volume subarachnoid hemorrhage involving thebilateral cerebral convexity sulci, interhemispheric fissure and the left sylvian fissure, not significantly changed compared to prior. There is smallvolume intraventricular hemorrhage within the dependent portions of theoccipital horns of the lateral ventricles, bilaterally, not significantly changedin volume compared to the prior. No evidence for hydrocephalus at thistime. Redemonstration of chronic encephalomalacia and gliosis involving theleft basal ganglia, the left insula and the left crenshaw radiata compatiblewith chronic infarction. FLAIR hyperintensity and susceptibility artifacts in the left sylvian fissure correlate with hyperdensity seen on the priorCT but may represent small volume blood products or more likely vascular calcifications. Susceptibility artifacts along the tentorium andpossibly the cerebellar vermis compatible with chronic hemosiderin deposition. No evidence of acute cerebral infarction is seen. There is mild cerebral volume loss with associated ex vacuo ventricular dilatation. No masseffect or midline shift is seen. Periventricular white matter FLAIR hyperintensities likely represent sequelae of chronic small vesselischemic disease. Old lacunar infarcts are present in the right basal ganglia.The corpus callosum and sella appear normal. The posterior fossa, brainstem, and craniocervical junction appear grossly unremarkable. Other than mild paranasal sinus disease, the visualized portions of the orbits, paranasal sinuses, and mastoids appear normal. There is anabsent flow void within the left ICA terminus, and M1 segment of the leftmiddle cerebral artery. Normal flow voids are demonstrated in the right carotid and basilar artery. The calvarium and visualized cervical spine appear normal. Angiographic findings: There is redemonstration of nonopacification of the left internalcarotid artery. There is minimal opacification of the left M1 segment of theleft middle cerebral artery, likely via collateral flow through the anterior communicating artery. The anterior and right middle cerebral arteries appear normal. The distal vertebral arteries appear normal. The basilar artery and posterior cerebral arteries are patent. There is anapproximate 4 mm saccular aneurysm arising inferiorly from the anteriorcommunicating artery (series 1 image 89). IMPRESSION: 1.Redemonstration of scattered subarachnoid hemorrhages along thebilateral cerebral convexities, predominantly in the occipitotemporal sulci andsmall volume intraventricular, not significantly changed compared to the prior CT. 2.Chronic infarction involving the left basal ganglia, left insula andleft crenshaw radiata, not significantly changed compared to prior. No evidenceof acute infarction is identified. 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 Report dictated by Guicho Longoria MD (residential property consultant). Sheri Kearney MD have personally reviewed and interpretedthis examination/study. > Interpreting Provider: Sheri Davila MD on 07/11/2023 5:20 PM Mis Curtis INSURANCE ASSOCIATE-SOUND EFFECTS TECHNICIAN MR ORDERABLES * PTT [facility] (07/11/2023 1:08 AM CDT) APTT 29.1 23.0 - 38.4 Seconds 07/11/2023 1:38 AM [facility] Comment:Suggested therapeuti c range for full dose I.V. unfractionated heparin therapy for venous thromboembolism is 71 to 109 seconds. Blood BLOOD SPECIMEN / Unknown Venipuncture / Unknown 07/11/2023 1:08 AM CDT 07/11/2023 1:12 AM CDT Carlos Rizzo MD LAB - COAGULATION OR DERABLES [facility] [address] [place] [id number], [facility] [phone] * (ABNORMAL) CBC W AUTO DIFFERENTIAL (07/11/2023 1:08 AM CDT) Only the most recent of3 resultswithin the time period is included. WBC 7.7 4.0 - 10.7 x10E9/L 07/11/2023 1:19 AM [facility] RBC Count 4.40 4.30 - 5.80 x10E12/L 07/11/2023 1:19 AM [facility] Hemoglobin 11.9(L) 13.3 - 17.5 g/dL 07/11/2023 1:19 AM [facility] Hematocrit 34.9(L) 38.7 - 51.1 % 07/11/2023 1:19 AM [facility] MCV 79.3(L) 80.0 - 98.0 fL 07/11/2023 1:19 AM [facility] MCH 27.0 26.7 - 33.6 pg 07/11/2023 1:19 AM [facility] MCHC 34.1 31.7 - 36.3 g/dL 07/11/2023 1:19 AM [facility] RDW-CV 13.0 11.3 - 14.8 % 07/11/2023 1:19 AM [facility] Platelet Count 164 150 - 420 x10E9/L 07/11/2023 1:19 AM [facility] MPV 10.9 7.8 - 11.4 fL 07/11/2023 1:19 AM [facility] Neutrophil % 60.6 41.0 - 74.0 % 07/11/2023 1:19 AM [facility] Lymphocyte % 29.7 17.0 - 47.0 % 07/11/2023 1:19 AM [facility] Monocyte % 8.1 3.0 - 11.0 % 07/11/2023 1:19 AM [facility] Eosinophil % 0.5 0.0 - 7.0 % 07/11/2023 1:19 AM [facility] Basophil % 0.8 0.0 - 1.6 % 07/11/2023 1:19 AM [facility] Immature Granulocytes % 0.3 0.0 - 1.0 % 07/11/2023 1:19 AM [facility] Neutrophil Absolute 4.64 1.60 - 7.50 x10E9/L 07/11/2023 1:19 AM [facility] Lymphocyte Absolute 2.27 1.00 - 4.40 x10E9/L 07/11/2023 1:19 AM [facility] Monocyte Absolute 0.62 0.15 - 1.00 x10E9/L 07/11/2023 1:19 AM [facility] Eosinophil Absolute 0.04 0.00 - 0.60 x10E9/L 07/11/2023 1:19 AM [facility] Basophil Absolute 0.06 0.00 - 0.13 x10E9/L 07/11/2023 1:19 AM [facility] Blood BLOOD SPECIMEN / Unknown Venipuncture / Unknown 07/11/2023 1:08 AM T 07/11/2023 1:13 AM CDT Carlos Rizzo MD LAB - HEMATOLOGY ORD [place] [address] [address], [place] [phone] * TROPONIN-I HIGH SENSITIVE REFLEX 1HOUR (07/10/2023 8:29 PM CDT) Only the most recent of2 resultswithin the time period is included. Troponin I High Sensitive 14 <=35 ng/L 07/10/2023 9:17 PM CDT [facility] Delta Troponin I HS 1 <6 ng/L 07/10/2023 9:17 PM CDT [facility] Blood BLOOD SPECIMEN / Unknown Venipuncture / Unknown 07/10/2023 8:29 PM CDT 07/10/2023 8:41 PM CDT Franklin Chavez MD LAB - CHEMISTRY GENNARO HASTINGS Performing Organization Address City/[facility]/ZIP Co de Phone Number [address] [address], [place] [phone] * TROPONIN-I HIGH SENSITIVE BASELINE + 1HR (07/10/2023 7:02 PM CDT) Only the most recent of2 resultswithin the time period is included. [facility] Troponin I High Sensitive 13 <=35 ng/L 07/10/2023 7:42 PM CDT [facility] Blood BLOOD SPECIMEN / Unknown Venipuncture / Unknown 07/10/2023 7:02 PM CDT 07/10/2023 7:10 PM CDT Franklin Chavez MD LAB - CHEMISTRY GENNARO HASTINGS Performing Organization Address City/[facility]/ZIP Co de Phone Number [address] [address], [place] [phone] * TYPE + SCREEN PANEL (07/10/2023 7:02 PM CDT) Only the most recent of2 resultswithin the time period is included. Pathologist [facility] Antibody Screen NEG 7:48 PM CDT [facility] ABO Rh O NEG 07/10/2023 7:48 PM CDT [facility] Blood Bank BLOOD SPECIMEN / Unknown Venipuncture / Unknown 07/10/2023 7:02 PM CDT 07/10/2023 7:10 PM CDT Franklin Chavez MD LAB - BLOOD BANK ORD ERABLES [facility] [address] [place] [address], [facility] [phone] * (ABNORMAL) COMPREHENSIVE METABOLIC PANEL (07/10/2023 7:02 PM CDT) Only the most recent of2 resultswithin the time period is included. BUN 18 7 - 26 mg/dL 07/10/2023 7:38 PM [facility] Creatinine 0.90 0.71 - 1.16 mg/dL 07/10/2023 7:38 PM [facility] Sodium 139 136 - 145 mmol/L 07/10/2023 7:38 PM [facility] Potassium 3.9 3.5 - 4.5 mmol/L 07/10/2023 7:38 PM [facility] Chloride 106 98 - 107 mmol/L 07/10/2023 7:38 PM [facility] CO2 22 22 - 29 mmol/L 07/10/2023 7:38 PM [facility] Glucose 100 70 - 115 mg/dL 07/10/2023 7:38 PM [facility] Calcium 9.5 8.4 - 10.2 mg/dL 07/10/2023 7:38 PM [facility] Protein Total 6.8 6.0 - 8.3 g/dL 07/10/2023 7:38 PM [facility] Albumin 3.6 3.4 - 5.0 g/dL 07/10/2023 7:38 PM [facility] Bilirubin Total 1.3(H) 0.2 - 1.2 mg/dL 07/10/2023 7:38 PM [facility] Alkaline Phosphatase 57 40 - 150 U/L 07/10/2023 7:38 PM [facility] ALT 16 5 - 55 U/L 07/10/2023 7:38 PM [facility] AST 11 5 - 34 U/L 07/10/2023 7:38 PM [facility] Anion Gap 11 6 - 16 07/10/2023 7:38 PM [facility] BUN/Creatinine Ratio 20 7 - 23 07/10/2023 7:38 PM [facility] Osmolality Calculated 290 275 - 295 mOsm/kg 07/10/2023 7:38 PM [facility] Albumin/Globulin Ratio 1.1 1.1 - 2.3 07/10/2023 7:38 PM [facility] eGFR by CKD-EPI >90 >=90 mL/min/1.7 3 m2 07/10/2023 7:38 PM [facility] Blood BLOOD SPECIMEN / Unknown Venipuncture / Unknown 07/10/2023 7:02 PM CDT 07/10/2023 7:10 PM CDT Franklin Chavez MD LAB - CHEMISTRY STEFFE VENKATA [address] [address], [facility] [phone] * (ABNORMAL) CREATININE - POCT INTERFACED (03/13/2023 11:05 AM AUTOMOTIVE ENGINEERING TECHNICIAN) Creatinine POCT 1.27 0.30 - 1.30 mg/dL 03/13/2023 11:07 AM AUTOMOTIVE ENGINEERING TECHNICIAN [facility] eGFR 62(L) >90 mL/min/1.7 3 m2 03/13/2023 11:07 AM [facility] Blood BLOOD SPECIMEN / Unknown 03/13/2023 11:05 AM AUTOMOTIVE ENGINEERING TECHNICIAN 03/13/2023 11:07 AM AUTOMOTIVE ENGINEERING TECHNICIAN Benitez Hills MD LAB - POINT OF CARE ORDERABLES [address] [address] [phone] * CARDIAC EKG ORDER (12/05/2022 4:22 PM CDT) Narrative 12/05/2022 4:22 PM CDT Ordered by an unspecified provider. Scanned Document CARDIAC SERVICES ORD ERABLES * FL SWALLOWING FUNCTION STUDY (12/05/2022 2:24 PM CDT) Anatomical Region Laterality Modality Chest Radiographic Linnette ging 12/05/2022 2:28 PM CDT Narrative 12/07/2022 10:44 AM CDT PROCEDURE: FL SWALLOWING FUNCTION STUDY, DATE/TIME OF EXAM: 12/05/2022 2:28 PM, LOCATION [facility] INDICATION: I63.512: Acute ischemic left MCA stroke ([facility]) ADDITIONAL CLINICAL INFORMATION: Ordering Provider Reason For Exam: dysphagia Technologist Note: Additional: COMPARISON: None. FLUOROSCOPY DOSE: 7.6 mGy Reference air kerma (ka,r). FLUOROSCOPY TIME: 2.7 minutes; Number of images: [id number] TECHNIQUE: Modified barium swallow fluoroscopy performed in conjunction with speech pathology staff. The speech pathologist administered varying thickness barium liquids and solids under direct Cine fluoroscopy. FINDINGS/IMPRESSION: Fluoroscopic assistance was provided for a modified barium swallow test performed by Speech Therapy. Please see the Speech Therapy report for details. Report dictated by Rafael Mendoza MD, (residential property consultant). I, Leif Bhatia MD have personally reviewed and interpreted this examination/study. > Interpreting Provider: Leif Bhatia MD on 12/07/2022 10:44 AM Procedure Note Leif Bhatia MD - 12/07/2022 PROCEDURE: FL SWALLOWING FUNCTION STUDY, DATE/TIME OF EXAM: 12/05/2022 2:28 PM, LOCATION [facility] INDICATION: I63.512: Acute ischemic left MCA stroke ([facility]) ADDITIONAL CLINICAL INFORMATION: Ordering Provider Reason For Exam: dysphagia Technologist Note: Additional: COMPARISON: None. FLUOROSCOPY DOSE: 7.6 mGy Reference air kerma (ka,r). FLUOROSCOPY TIME: 2.7 minutes; Number of images: [id number] TECHNIQUE: Modified barium swallow fluoroscopy performed in conjunction with speech pathology staff. The speech pathologist administered varying thickness barium liquids and solids under direct Cine fluoroscopy. FINDINGS/IMPRESSION: Fluoroscopic assistance was provided for a modified barium swallow test performed by Speech Therapy. Please see the Speech Therapy report for details. Report dictated by Rafael Mendoza MD, (residential property consultant). I, Leif Bhatia MD have personally reviewed and interpreted this examination/study. > Interpreting Provider: Leif Bhatia MD on 0:44 AM Benitez Hills MD FLUOROSCOPY ORDERABL ES * HEMOGLOBIN A1C (12/05/2022 12:23 PM CDT) Hemoglobin A1c 4.7 <=5.6 % 12/05/2022 2:06 PM CDT [facility] Estimated Average Glucose 88 mg/dL 12/05/2022 2:06 PM CDT [facility] Comment: HbA1c Interpretation: Normal : < 5.7% Pre-diabetes: 5.7-6.4% Diabetes: Equal to or greater than 6.5% Test results diagnostic of diabetes should be repeated for confirmation. Treatment target values recommended by ADA and other clinical organizations should be used to evaluate metabolic control in patients. Reference: [place] [employer], Standards of Care in Diabetes -2020 In patients 70 years and older consider HbA1c target range of 7.0-7.5% (Reference: Zacarias Rodriguez, et al. JAMDA. 2012) The Sebia assay for the measurement of HbA1c is a National Glycohemoglobin Standardization Program (NGSP) certified method. Blood BLOOD SPECIMEN / Unknown Lab Venipuncture / Unknown 12/05/2022 12:23 PM CDT 12/05/2022 1:06 PM CDT Aram Mariscal INSURANCE ASSOCIATE-SOUND EFFECTS TECHNICIAN LAB - CHEMISTRY OR DERABLES [facility] [address] [place] [address], [facility] [phone] * LIPID PROFILE (12/05/2022 12:23 PM CDT) Cholesterol Total 123 <200 mg/dL 12/05/2022 1:38 PM CDT [facility] HDL 42 >40 mg/dL 12/05/2022 1:38 PM CDT [facility] Comment: ATP III Classification of HDL Cholesterol: <40 mg/dL: Considered a major risk factor. >60 mg/dL: Considered a negative risk factor. LDL Calculated 63 <100 mg/dL 12/05/2022 1:38 PM CDT [facility] Comment: ATP III Classification of LDL Cholesterol: <100 mg/dL: Optimal 100 - 129 mg/dL: Near Optimal/Above Optimal 130 - 159 mg/dL: Borderline High 160 - 189 mg/dL: High >190 mg/dL: Very High Triglycerides 91 <150 mg/dL 12/05/2022 1:38 PM CDT [facility] Comment: ATP III Classification of Triglycerides: <150 mg/dL: Normal 150 - 199 mg/dL: Borderline High 200 - 400 mg/dL: High >500 mg/dL: Very High Blood BLOOD SPECIMEN / Unknown Lab Venipuncture / Unknown 12/05/2022 12:23 PM CDT 12/05/2022 1:06 PM CDT Aram Mariscal APRN-MALIA LAB - CHEMISTRY OR DERABLES Performing Organization Address [place]/State/ZIP Co de Phone Number [facility] [address] [place] [phone], [facility] [phone] * VAS CAROTID DUPLEX LTD (12/05/2022 10:39 AM CDT) Anatomical Region Laterality Modality Neck Intravascular Ul trasound 12/05/2022 10:0 4 AM CDT Narrative Procedure Note Amaury Willams MD - 12/05/2022 Aram Mariscal APRN-SOUND EFFECTS TECHNICIAN VASCULAR LAB ORDER COLLEEN * XR CHEST 1VW PORTABLE (12/05/2022 9:23 AM CDT) Only the most recent of2 resultswithin the time period is included. Anatomical Region Laterality Modality Chest Radiographic Linnette ging 12/05/2022 2:30 PM CDT Narrative 12/07/2022 8:39 AM CDT PROCEDURE: XR CHEST 1VW PORTABLE, DATE/TIME OF EXAM: 12/05/2022 9:23 AM, LOCATION [facility] INDICATION: R53.1: Weakness ADDITIONAL CLINICAL INFORMATION: Ordering Provider Reason For Exam: fever Technologist Note: Additional: COMPARISON: 12/03/2022 portable chest radiograph FINDINGS/IMPRESSION: Enteric tube courses below the diaphragm with tip not visualized. Linear opacity in the left lower lung zone, suggestive of subsegmental atelectasis. Mild vascular congestion. No pleural effusion or pneumothorax. Cardiomediastinal silhouette is enlarged. Report dictated by Rafael Mendoza MD, (residential property consultant). Silvio Kearney MD have personally reviewed and interpreted this examination/study. > Interpreting Provider: Silvio Bryant MD on 12/07/2022 8:39 AM Procedure Note Silvio Bryant MD - 12/07/2022 PROCEDURE: XR CHEST 1VW PORTABLE, DATE/TIME OF EXAM: 12/05/2022 9:23AM, LOCATION [facility] INDICATION: R53.1: Weakness ADDITIONAL CLINICAL INFORMATION: Ordering Provider Reason For Exam: fever Technologist Note: Additional: COMPARISON: 12/03/2022 portable chest radiograph FINDINGS/IMPRESSION: Enteric tube courses below the diaphragm with tip not visualized. Linear opacity in the left lower lung zone, suggestive of subsegmental atelectasis. Mild vascular congestion. No pleural effusion orpneumothorax. Cardiomediastinal silhouette is enlarged. Report dictated by Rafael Mendoza MD, (residential property consultant). Silvio Kearney MD have personally reviewed and interpreted this examination/study. > Interpreting Provider: Silvio Bryant MD on 12/07/2022 8:39 AM Benitez Hills MD DIAGNOSTIC IMAGING O RDERABLES * XR ABDOMEN KUB PORTABLE (12/04/2022 9:46 AM CDT) Only the most recent of3 resultswithin the time period is included. Anatomical Region Laterality Modality Abdomen Radiographic Linnette ging 12/04/2022 12:3 2 PM CDT Impressions 12/04/2022 2:41 PM CDT IMPRESSION: Enteric tube terminates within the gastric lumen. Cholecystectomy clips, one of which may have migrated to the right mid abdomen. Nonobstructive bowel gas pattern. IMARK MD have personally reviewed and interpreted this examination/study. > Interpreting Provider: MARK ZIEGLER MD on 12/04/2022 2:41 PM Narrative 12/04/2022 2:41 PM CDT PROCEDURE: XR ABDOMEN KUB PORTABLE DATE/TIME OF EXAM: 12/04/2022 9:46 AM CLINICAL INFORMATION: None relevant/not provided if blank. Indication: I63.512: Acute ischemic left MCA stroke (CMS/HCC) Additional History: COMPARISON: KUB 12/04/2022 at 8:59 AM FINDINGS: Enteric tube courses below the diaphragm with the distal tip superimposing the expected location of the stomach. The bowel gas pattern is nonobstructive. No pneumatosis or portal venous gas is identified. Free peritoneal air is not adequately assessed on supine radiographs. Cholecystectomy clips are seen in the right upper quadrant. A separate surgical clip is seen over the right mid abdomen, and may represent a migrated surgical clip. No acute osseous abnormality is noted. Procedure Note Mark Ziegler MD - 12/04/2022 PROCEDURE: XR ABDOMEN KUB PORTABLE DATE/TIME OF EXAM: 12/04/2022 9:46 AM CLINICAL INFORMATION: None relevant/not provided if blank. Indication: I63.512: Acute ischemic left MCA stroke (CMS/HCC) Additional History: COMPARISON: KUB 12/04/2022 at 8:59 AM FINDINGS: Enteric tube courses below the diaphragm with the distal tipsuperimposing the expected location of the stomach. The bowel gas pattern is nonobstructive. No pneumatosis or portal venous gas is identified. Free peritoneal air is not adequately assessed onsupine radiographs. Cholecystectomy clips are seen in the right upper quadrant.A separate surgical clip is seen over the right mid abdomen, and may represent a migrated surgical clip. No acute osseous abnormality isnoted. IMPRESSION: Enteric tube terminates within the gastric lumen. Cholecystectomy clips, one of which may have migrated to the right mid abdomen. Nonobstructive bowel gas pattern. I, MARK ZIEGLER MD have personally reviewed and interpreted this examination/study. > Interpreting Provider: MARK ZIEGLER MD on 12/04/2022 2:41 PM Benitez Hills MD DIAGNOSTIC IMAGING O RDERABLES * XR ABDOMEN KUB (12/03/2022 7:04 PM CDT) Anatomical Region Laterality Modality Abdomen Radiographic Linnette ging 12/03/2022 10:4 4 PM CDT Narrative 12/04/2022 12:09 AM CDT PROCEDURE: XR ABDOMEN KUB DATE/TIME OF EXAM: 12/03/2022 7:04 PM CLINICAL INFORMATION: None relevant/not provided if blank. Indication: I63.512: Acute ischemic left MCA stroke (CMS/HCC) Additional History: COMPARISON: None. FINDINGS/IMPRESSION Enteric tube courses below the diaphragm with the side port at the level of the gastroesophageal junction, recommend advancement of 7 cm. Findings discussed with Dr. Dennis by Dr. James Alonzo at 12/03/2022 10:45 PM with read back comprehension and verification. Report dictated by James Alonzo MD (residential care facility manager). IDelonte MD have personally reviewed and interpreted this examination/study. > Interpreting Provider: Delonte Reynoso MD on 12/04/2022 12:09 AM Procedure Note Delonte Reynoso MD - 12/04/2022 PROCEDURE: XR ABDOMEN KUB DATE/TIME OF EXAM: 12/03/2022 7:04 PM CLINICAL INFORMATION: None relevant/not provided if blank. Indication: I63.512: Acute ischemic left MCA stroke (CMS/HCC) Additional History: COMPARISON: None. FINDINGS/IMPRESSION Enteric tube courses below the diaphragm with the side port at the levelof the gastroesophageal junction, recommend advancement of 7 cm. Findings discussed with Dr. Dennis by Dr. James Alonzo at 12/03/2022 10:45 PM with read back comprehension and verification. Report dictated by James Alonzo MD (residential care facility manager). Delonte Kearney MD have personally reviewed and interpreted this examination/study. > Interpreting Provider: Delonte Reynoso MD on 12/04/2022 12:09 AM Benitez Hills MD DIAGNOSTIC IMAGING O RDERABLES * BLOOD TYPE VERIFICATION (12/03/2022 4:11 AM CDT) ABO Rh O NEG 12/03/2022 4:4 2 AM CDT [facility] Blood Bank BLOOD SPECIMEN / Unknown Venipuncture / Unknown 12/03/2022 4:11 AM CDT 12/03/2022 4:16 AM CDT Paula Mora MD LAB - BLOOD BANK ORD ERABLES [facility] [address] [place] [address], [facility] [phone] * ECHO COMPLETE W CONTRAST W BUBBLE STUDY (12/02/2022 2:55 PM CDT) BSA [id number] m2 SSM CV FUJI PACS LV biplane EF 60 52 - 72 % SSM CV FUJI PACS LV A2C EF 62 48 - 76 % SSM CV FUJ I PACS LV A4C EF 57 46 - 74 % SSM CV FUJ I PACS LVOT stroke vol 112.07 mL SSM CV FUJI PACS LV stroke vol 2D teich 63.665 ml SSM CV FUJI PACS LV stroke vol index A4C MOD 62.698 ml/m2 SSM CV FUJI PACS LV Stroke Index 2D Teich 26.57 mL/m2 SSM CV FUJI PACS LVIDd 4.82 4.2 - 5.8 cm SSM CV FUJI PACS LVIDs 3.33 2.5 - 4.0 cm SSM CV FUJI PACS IVSd 2D 1.213 0.6 - 1 cm SSM CV FUJI PACS LVPWd 1.26 cm SSM CV FUJ I PACS Fractional Shortening 2D 31 28 - 44 % SSM CV FUJI PACS LV ESV BP 53.055 21 - 61 mL SSM CV FUJI PACS LV ESV index BP 22.1 11 - 31 mL/m2 SSM CV FUJI PACS LV ESV A2C 46.345 15 - 75 mL SSM CV FUJI PACS LV ESV index A2C 19.34 9 - 37 mL/m2 SSM CV FUJI PACS LV EDV BP 133.545 mL SSM CV FUJ I PACS LV ESV A4C 55.438 22 - 78 mL SSM CV FUJI PACS LV ESV index A4C 23.13 12 - 40 mL/m2 SSM CV FUJI PACS LV EDV index BP 55.7 34 - 74 mL/m2 SSM CV FUJI PACS LV EDV A2C 147.53 59 - 175 mL SSM CV FUJI PACS LV EDV index A2C 61.56 31 - 87 mL/m2 SSM CV FUJI PACS LV EDV A4C 109.043 mL SSM CV FU JI PACS LV ESV 2D 45.065 21 - 61 mL SSM CV FUJI PACS LV EDV index A4C 45.50 37 - 93 mL/m2 SSM CV FUJI PACS LV ESV index 2D 18.81 11 - 31 mL/m2 SSM CV FUJI PACS LV EDV 2D 108.73 62 - 150 mL SSM CV FUJI PACS LV EDV index 2D 45.37 34 - 74 mL/m2 SSM CV FUJI PACS LVOT diam 2.4 cm SSM CV FUJ I PACS LVOT area 4.61 cm2 SSM CV FUJ I PACS LV RWT 0.523 SSM CV FUJ I PACS LV Hedrick A2C 9.575 cm SSM CV F UJI PACS LV Hedrick A4C 8.579 cm SSM CV F UJI PACS IVS/LVPW 0.961 SSM CV FUJ I PACS LV mass 2D 199.1734 96 - 200 g SSM CV FUJI PACS LV mass index 2D 83.11 50 - 102 g/m2 SSM CV FUJI PACS MV E pk ho 63.176 cm/s SSM CV F UJI PACS MV avg E/e' ratio 7.56 SS M CV FUJI PACS MV A pk ho 72.256 cm/s SSM CV F UJI PACS MV E A ratio 0.87 SSM CV FUJI PACS LV IVRT 114 ms SSM CV FUJ I PACS MV E' lateral ho 8.977 cm/s SS M CV FUJI PACS MV DT 250 ms SSM CV FUJ I PACS MV E' septal ho 7.816 cm/s SSM CV FUJI PACS MV A duration 134 ms SSM CV FUJI PACS MV E/e' septal 8.083 SSM C V FUJI PACS MV E/e' lateral 7.037 SSM CV FUJI PACS TR pk ho 189.4 cm/s SSM CV [facility] I PACS P vein A ho 23.3 cm/s SSM CV FUJI PACS P vein A duration 118 ms SS M CV FUJI PACS P vein S/D ratio 1.57 SSM CV FUJI PACS LVOT pk oh 1.15 m/s SSM CV F U PACS LVOT mn ho 0.80 m/s SSM CV F UJI PACS LVOT mn grad 2.8 mmHg SSM CV FUJI PACS LVOT Cardiac Output 7.455 l/min SSM CV FUJI PACS LVOT Cardiac Index 3.11 l/min/m2 SSM CV FUJI PACS Qp:Qs 0.92 SSM CV [facility] I PACS LA size 3.532 3.0 - 4.0 cm SSM CV FUJI PACS LA vol BP A-L 54.792 mL [facility] RV-hedrick basal diam 3.9 2.5 - 4.1 cm SSM CV FUJI PACS RV-hedrick longitudinal diam 7.3 5.9 - 8.3 cm SSM CV FUJI PACS RVIDd 3.2 cm SSM CV [facility] I PACS RVOT diam Doppler 2.78 cm SS M [facility] area Doppler 6.07 cm2 SS [facility] stroke vol 102.72 cm3 [facility] VTI 16.929 cm SSM CV [facility] I PACS TV S' ho 16.852 SSM CV [facility] I PACS TAPSE 2.141 1.7 cm SSM CV [facility] I PACS RVOT pk ho 0.80 m/s SSM CV F UJI PACS RA area 20.68 cm2 SSM CV [facility] I PACS AV mn grad 5 mmHg SSM CV FU JI PACS AV pk grad 7 mmHg SSM CV FU JI PACS AV mn ho 1.05 m/s SSM CV [facility] I PACS AV pk ho 1.51 m/s SSM CV FUJ I PACS AV VTI 31.48 cm SSM CV FUJ I PACS LVOT pk grad 5.276 mmHg SSM CV FUJI PACS LVOT VTI 24.328 cm SSM CV FUJ I PACS AV area cont VTI 3.6 cm2 SSM CV FUJI PACS AV area pk ho 3.5 cm2 SSM C V FUJI PACS AV Doppler ho index pk ho 0.76 SSM CV FUJI PACS LVOT stroke vol index 46.8 mL/m2 SSM CV FUJI PACS Dimensionless Index 0.773 SSM CV FUJI PACS MV decel slope 252.5 cm/s2 SSM C V FUJI PACS TR VTI 48.8 cm SSM CV FUJ I PACS TR pk grad 14 mmHg SSM CV FU JI PACS RVOT mn grad 1 mmHg SSM CV FUJI PACS RVOT pk grad 3 mmHg SSM CV FUJI PACS PV area cont eq 5.0 cm2 SSM CV FUJI PACS PV mn grad 2 mmHg SSM CV FU JI PACS PV pk ho 107.935 cm/s SSM CV FUJ I PACS PV pk grad 5 mmHg SSM CV FU JI PACS PV VTI 20.499 cm SSM CV FUJ I PACS PV mn ho 68.395 cm/s SSM CV FUJ I PACS Ascending aorta 3.78 cm SSM CV FUJI PACS Max Age Predicted HR 153 SSM CV FUJI PACS LA ESV A4C MOD Index 11 ml/m2 SSM CV FUJI PACS LA ESV A2C MOD Index 26 ml/m2 SSM CV FUJI PACS Target HR 130 SSM CV FUJ I PACS [id number] 6.694 cm SSM CV FUJ I PACS [id number] 7.351 cm SSM CV FUJ I PACS LV stroke vol BP 80.49 mL SSM CV FUJI PACS LVIDs index 1.39 1.3 - 2.1 cm/m2 SSM CV FUJI PACS LV LVIDd index 2.01 2.2 - 3.0 cm/m2 SSM CV FUJI PACS Sinus of Valsalva 3.78 cm SS M CV FUJI PACS Sinus of valsalva index 1.58 cm/m2 SSM CV FUJI PACS RVSP 17.0 mmHg SSM CV FUJ I PACS RAP 3.0 mmHg SSM CV FUJ I PACS Anatomical Region Laterality Modality Ultrasound Narrative 12/03/2022 1:20 AM CDT Left Ventricle: Left ventricle size is normal. Normal wall thickness. Normal systolic function. EF by 2D Gordillo biplane is 60%. Normal wall motion. Normal diastolic function. Right Ventricle: Right ventricle size is normal. Normal systolic function. Left Atrium: Left atrium size is normal. No right to left intracardiac or extracardiac shunt present viewable with agitated saline and color Doppler. Tricuspid Valve: Trace regurgitation. The pulmonary artery systolic pressure is normal (under 35 mmHg). Estimated RVSP is 17.0 mmHg. No hemodynamically significant valvular abnormalities Left Ventricle Left ventricle size is normal. Normal wall thickness. Normal systolic function. EF by 2D Gordillo biplane is 60%. Normal wall motion. Normal diastolic function. Right Ventricle Right ventricle size is normal. Normal systolic function. Left Atrium Left atrium size is normal. No right to left intracardiac or extracardiac shunt present viewable with agitated saline and color Doppler. Right Atrium Right atrium size is normal. IVC/SVC IVC diameter is less than or equal to 21 mm and decreases greater than 50% during inspiration; therefore the estimated right atrial pressure is normal (~3 mmHg). Mitral Valve Valve structure is normal. No restricted motion. Trace regurgitation. No stenosis. Tricuspid Valve Valve structure is normal. No restricted motion. Trace regurgitation. The pulmonary artery systolic pressure is normal (under 35 mmHg). Estimated RVSP is 17.0 mmHg. No stenosis. Aortic Valve Valve structure is trileaflet. No restricted motion. No regurgitation. No stenosis. AV mean gradient is 5 mmHg. AV peak velocity is 1.51 m/s. AV area by continuity VTI is 3.6 cm2. Pulmonic Valve Valve structure is normal. Trace regurgitation. No stenosis. Ascending Aorta Normal sized sinus of Valsalva (aortic root) and ascending aorta. Sinus of Valsalva is 3.78 cm. Ascending Aorta is 3.78 cm. Sinus of Valsalva indexed to BSA is 1.58 cm/m2. Pericardium No pericardial effusion. Study Details Study quality was adequate. A complete 2D, color Doppler, spectral Doppler and M-mode echocardiogram was performed. The apical, parasternal, subcostal and suprasternal views were obtained. Definity and saline ultrasound enhancing agent used. Patient exhibited sinus rhythm. Technical difficulties due to patient's clinical status. Prior Study No prior study available for comparison. Procedure Note Tawnya Dominguez MD - 12/03/2022 Left Ventricle: Left ventricle size is normal. Normal wall thickness.Normal systolic function. EF by 2D Gordillo biplane is 60%. Normal wallmotion. Normal diastolic function. Right Ventricle: Right ventricle size is normal. Normal systolicfunction. Left Atrium: Left atrium size is normal. No right to left intracardiacor extracardiac shunt present viewable with agitated saline and colorDoppler. Tricuspid Valve: Trace regurgitation. The pulmonary artery systolicpressure is normal (under 35 mmHg). Estimated RVSP is 17.0 mmHg. No hemodynamically significant valvular abnormalities Daren Rudolph MD ECHO CUPID * CT CEREBRAL PERFUSION ANALYSIS (12/02/2022 11:42 AM CDT) Anatomical Region Laterality Modality Head Computed Tomogra phy 12/02/2022 9:42 AM CDT Impressions 12/02/2022 10:28 AM CDT IMPRESSION: 1. Findings consistent with a small acute infarct in the posterior left insula and the left frontal lobe. Accounting for the presence of residual contrast from an outside hospital, no evidence of acute intracranial hemorrhage. 2. 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 3. Occlusion of an M2 segment of the left middle cerebral artery from its origin and another M2 segment in the midportion in the left sylvian fissure. 4. Perfusion examination demonstrate a moderate size area of ischemia/penumbra. These findings were discussed in detail with the patient's care provider, Dr. Bejarano by Dr. Swift via telephone at 9:15 AM on 12/02/2022 with readback comprehension and verification. > Interpreting Provider: Cailin Swift MD on 12/02/2022 10:28 AM Narrative 12/02/2022 10:28 AM CDT PROCEDURE: CT CEREBRAL PERFUSION ANALYSIS, CT BRAIN STROKE, CT ANGIO BRAIN NECK STROKE, DATE/TIME OF EXAM: 12/02/2022 8:59 AM, LOCATION [facility] INDICATION: R53.1: Weakness ADDITIONAL CLINICAL INFORMATION: Ordering Provider Reason For Exam: stroke Technologist Note: Additional: EXAMINATION: 1. Computed tomographic (CT) angiography of the head without and with contrast 2. CT angiography of the neck with contrast 3. CT cerebral perfusion TECHNIQUE: CT of the head was performed without contrast according to standard protocol. Then CT angiography of the head and neck and CT cerebral perfusion was obtained after the uneventful administration of 60 mL Isovue-370 intravenous contrast. Three dimensional postprocessing was performed by the technologist and sent to the workstation for review. This study was analyzed using artificial intelligence software for Large Vessel Occlusion detection. COMPARISON: No prior study is available for comparison at the time of this dictation. FINDINGS: Non-angiographic findings: There is a small area of hypoattenuation in the posterior aspect of the left insula cortex and in the posterior left frontal lobe, consistent with acute infarct. Accounting for the presence of intravascular contrast which reduces the sensitivity to detect subtle intracranial hemorrhage, no distinct acute intracranial hemorrhage, or intra- or extra-axial fluid collections are identified. The ventricles are of normal size, shape, and morphology. The basal cisterns are patent. No mass effect or midline shift is seen. There is vascular calcification of the carotid siphons. The visualized portions of the orbits, paranasal sinuses, and mastoids appear normal. No acute calvarial fracture is identified. No soft tissue abnormalities are identified in the neck. Mild multilevel degenerative disc and joint disease is noted. Angiographic findings: Neck: There is atherosclerotic disease of the aortic arch. The configuration of the brachiocephalic vessels is typical. There is scattered atherosclerotic calcification of the innominate and subclavian arteries. There is atherosclerotic disease in the right carotid bifurcation and origin of the right internal carotid artery with less than 50 percent focal stenosis. The right common and internal carotid arteries otherwise appear patent. The left common carotid artery is patent. Atherosclerotic disease at the left carotid bifurcation causing complete occlusion of the left internal carotid artery with reconstitution of the supraclinoid segment and the left carotid terminus. There is atherosclerotic disease in the cervical vertebral arteries without significant focal stenosis. Head: There is atherosclerotic disease involving the distal internal carotid arteries without significant focal stenosis. The anterior cerebral arteries are patent. There is severe stenosis at the distal M1 segment of the left middle cerebral artery. There is occlusion of an M2 segment starting at its origin and occlusion of an other M2 segment in the midportion in the left sylvian fissure. The posterior cerebral arteries are patent. The distal vertebral arteries are patent. The basilar artery is patent patent. Perfusion findings: There is a moderate-sized area of increased mean transient time and Tmax in the left frontal and parietal lobes, the lateral aspect of the left basal ganglia and the left insula without significant change in cerebral blood volume or cerebral blood flow, likely representing a moderate-sized area of ischemia/penumbra in the left middle cerebral artery territory. Procedure Note Cailin Swift MD - 12/02/2022 PROCEDURE: CT CEREBRAL PERFUSION ANALYSIS, CT BRAIN STROKE, CT ANGIOBRAIN NECK STROKE, DATE/TIME OF EXAM: 12/02/2022 8:59 AM, LOCATION [facility] INDICATION: R53.1: Weakness ADDITIONAL CLINICAL INFORMATION: Ordering Provider Reason For Exam: stroke Technologist Note: Additional: EXAMINATION: 1. Computed tomographic (CT) angiography of the head without and with contrast 2. CT angiography of the neck with contrast 3. CT cerebral perfusion TECHNIQUE: CT of the head was performed without contrast according to standard protocol. Then CT angiography of the head and neck and CTcerebral perfusion was obtained after the uneventful administration of 60 mL Isovue-370 intravenous contrast. Three dimensional postprocessing was performed by the technologist and sent to the workstation for review. This study was analyzed using artificial intelligence software for Large Vessel Occlusion detection. COMPARISON: No prior study is available for comparison at the time ofthis dictation. FINDINGS: Non-angiographic findings: There is a small area of hypoattenuation in the posterior aspect of the left insula cortex and in the posterior left frontal lobe, consistentwith acute infarct. Accounting for the presence of intravascular contrast which reduces the sensitivity to detect subtle intracranial hemorrhage, no distinct acute intracranial hemorrhage, or intra- or extra-axial fluid collections are identified. The ventricles are of normal size, shape, and morphology.The basal cisterns are patent. No mass effect or midline shift is seen.There is vascular calcification of the carotid siphons. The visualized portions of the orbits, paranasal sinuses, and mastoids appear normal. No acute calvarial fracture is identified. No soft tissue abnormalities are identified in the neck. Mild multilevel degenerative disc and joint disease is noted. Angiographic findings: Neck: There is atherosclerotic disease of the aortic arch. The configurationof the brachiocephalic vessels is typical. There is scatteredatherosclerotic calcification of the innominate and subclavian arteries. There is atherosclerotic disease in the right carotid bifurcation and origin ofthe right internal carotid artery with less than 50 percent focal stenosis.The right common and internal carotid arteries otherwise appear patent. The left common carotid artery is patent. Atherosclerotic disease at theleft carotid bifurcation causing complete occlusion of the left internalcarotid artery with reconstitution of the supraclinoid segment and the leftcarotid terminus. There is atherosclerotic disease in the cervical vertebral arteries without significant focal stenosis. Head: There is atherosclerotic disease involving the distal internal carotid arteries without significant focal stenosis. The anterior cerebralarteries are patent. There is severe stenosis at the distal M1 segment of theleft middle cerebral artery. There is occlusion of an M2 segment starting atits origin and occlusion of an other M2 segment in the midportion in theleft sylvian fissure. The posterior cerebral arteries are patent. The distal vertebral arteries are patent. The basilar artery is patent patent. Perfusion findings: There is a moderate-sized area of increased mean transient time and Tmaxin the left frontal and parietal lobes, the lateral aspect of the leftbasal ganglia and the left insula without significant change in cerebral blood volume or cerebral blood flow, likely representing a moderate-sized areaof ischemia/penumbra in the left middle cerebral artery territory. IMPRESSION: 1. Findings consistent with a small acute infarct in the posterior left insula and the left frontal lobe. Accounting for the presence ofresidual contrast from an outside hospital, no evidence of acute intracranial hemorrhage. 2. Complete occlusion of the left internal carotid artery from itsorigin to the carotid siphon with retrograde reconstitution of the supraclinoid portion and the carotid terminus. 3. Occlusion of an M2 segment of the left middle cerebral artery fromits origin and another M2 segment in the midportion in the left sylvian fissure. 4. Perfusion examination demonstrate a moderate size area of ischemia/penumbra. These findings were discussed in detail with the patient's careprovider, Dr. Bejarano by Dr. Swift via telephone at 9:15 AM on 12/02/2022 withreadback comprehension and verification. > Interpreting Provider: Cailin Swift MD on 12/02/2022 10:28 AM Pacheco Bocanegra MD CT ORDERABLES * CT ANGIO BRAIN NECK STROKE (12/02/2022 11:41 AM CDT) Anatomical Region Laterality Modality Head Computed Tomogra phy 12/02/2022 9:42 AM CDT Impressions 12/02/2022 10:28 AM CDT IMPRESSION: 1. Findings consistent with a small acute infarct in the posterior left insula and the left frontal lobe. Accounting for the presence of residual contrast from an outside hospital, no evidence of acute intracranial hemorrhage. 2. 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 3. Occlusion of an M2 segment of the left middle cerebral artery from its origin and another M2 segment in the midportion in the left sylvian fissure. 4. Perfusion examination demonstrate a moderate size area of ischemia/penumbra. These findings were discussed in detail with the patient's care provider, Dr. Bejarano by Dr. Swift via telephone at 9:15 AM on 12/02/2022 with readback comprehension and verification. > Interpreting Provider: Cailin Swift MD on 12/02/2022 10:28 AM Narrative 12/02/2022 10:28 AM CDT PROCEDURE: CT CEREBRAL PERFUSION ANALYSIS, CT BRAIN STROKE, CT ANGIO BRAIN NECK STROKE, DATE/TIME OF EXAM: 12/02/2022 8:59 AM, LOCATION [facility] INDICATION: R53.1: Weakness ADDITIONAL CLINICAL INFORMATION: Ordering Provider Reason For Exam: stroke Technologist Note: Additional: EXAMINATION: 1. Computed tomographic (CT) angiography of the head without and with contrast 2. CT angiography of the neck with contrast 3. CT cerebral perfusion TECHNIQUE: CT of the head was performed without contrast according to standard protocol. Then CT angiography of the head and neck and CT cerebral perfusion was obtained after the uneventful administration of 60 mL Isovue-370 intravenous contrast. Three dimensional postprocessing was performed by the technologist and sent to the workstation for review. This study was analyzed using artificial intelligence software for Large Vessel Occlusion detection. COMPARISON: No prior study is available for comparison at the time of this dictation. FINDINGS: Non-angiographic findings: There is a small area of hypoattenuation in the posterior aspect of the left insula cortex and in the posterior left frontal lobe, consistent with acute infarct. Accounting for the presence of intravascular contrast which reduces the sensitivity to detect subtle intracranial hemorrhage, no distinct acute intracranial hemorrhage, or intra- or extra-axial fluid collections are identified. The ventricles are of normal size, shape, and morphology. The basal cisterns are patent. No mass effect or midline shift is seen. There is vascular calcification of the carotid siphons. The visualized portions of the orbits, paranasal sinuses, and mastoids appear normal. No acute calvarial fracture is identified. No soft tissue abnormalities are identified in the neck. Mild multilevel degenerative disc and joint disease is noted. Angiographic findings: Neck: There is atherosclerotic disease of the aortic arch. The configuration of the brachiocephalic vessels is typical. There is scattered atherosclerotic calcification of the innominate and subclavian arteries. There is atherosclerotic disease in the right carotid bifurcation and origin of the right internal carotid artery with less than 50 percent focal stenosis. The right common and internal carotid arteries otherwise appear patent. The left common carotid artery is patent. Atherosclerotic disease at the left carotid bifurcation causing complete occlusion of the left internal carotid artery with reconstitution of the supraclinoid segment and the left carotid terminus. There is atherosclerotic disease in the cervical vertebral arteries without significant focal stenosis. Head: There is atherosclerotic disease involving the distal internal carotid arteries without significant focal stenosis. The anterior cerebral arteries are patent. There is severe stenosis at the distal M1 segment of the left middle cerebral artery. There is occlusion of an M2 segment starting at its origin and occlusion of an other M2 segment in the midportion in the left sylvian fissure. The posterior cerebral arteries are patent. The distal vertebral arteries are patent. The basilar artery is patent patent. Perfusion findings: There is a moderate-sized area of increased mean transient time and Tmax in the left frontal and parietal lobes, the lateral aspect of the left basal ganglia and the left insula without significant change in cerebral blood volume or cerebral blood flow, likely representing a moderate-sized area of ischemia/penumbra in the left middle cerebral artery territory. Procedure Note Cailin Swift MD - 12/02/2022 PROCEDURE: CT CEREBRAL PERFUSION ANALYSIS, CT BRAIN STROKE, CT ANGIOBRAIN NECK STROKE, DATE/TIME OF EXAM: 12/02/2022 8:59 AM, LOCATION [facility] INDICATION: R53.1: Weakness ADDITIONAL CLINICAL INFORMATION: Ordering Provider Reason For Exam: stroke Technologist Note: Additional: EXAMINATION: 1. Computed tomographic (CT) angiography of the head without and with contrast 2. CT angiography of the neck with contrast 3. CT cerebral perfusion TECHNIQUE: CT of the head was performed without contrast according to standard protocol. Then CT angiography of the head and neck and CTcerebral perfusion was obtained after the uneventful administration of 60 mL Isovue-370 intravenous contrast. Three dimensional postprocessing was performed by the technologist and sent to the workstation for review. This study was analyzed using artificial intelligence software for Large Vessel Occlusion detection. COMPARISON: No prior study is available for comparison at the time ofthis dictation. FINDINGS: Non-angiographic findings: There is a small area of hypoattenuation in the posterior aspect of the left insula cortex and in the posterior left frontal lobe, consistentwith acute infarct. Accounting for the presence of intravascular contrast which reduces the sensitivity to detect subtle intracranial hemorrhage, no distinct acute intracranial hemorrhage, or intra- or extra-axial fluid collections are identified. The ventricles are of normal size, shape, and morphology.The basal cisterns are patent. No mass effect or midline shift is seen.There is vascular calcification of the carotid siphons. The visualized portions of the orbits, paranasal sinuses, and mastoids appear normal. No acute calvarial fracture is identified. No soft tissue abnormalities are identified in the neck. Mild multilevel degenerative disc and joint disease is noted. Angiographic findings: Neck: There is atherosclerotic disease of the aortic arch. The configurationof the brachiocephalic vessels is typical. There is scatteredatherosclerotic calcification of the innominate and subclavian arteries. There is atherosclerotic disease in the right carotid bifurcation and origin ofthe right internal carotid artery with less than 50 percent focal stenosis.The right common and internal carotid arteries otherwise appear patent. The left common carotid artery is patent. Atherosclerotic disease at theleft carotid bifurcation causing complete occlusion of the left internalcarotid artery with reconstitution of the supraclinoid segment and the leftcarotid terminus. There is atherosclerotic disease in the cervical vertebral arteries without significant focal stenosis. Head: There is atherosclerotic disease involving the distal internal carotid arteries without significant focal stenosis. The anterior cerebralarteries are patent. There is severe stenosis at the distal M1 segment of theleft middle cerebral artery. There is occlusion of an M2 segment starting atits origin and occlusion of an other M2 segment in the midportion in theleft sylvian fissure. The posterior cerebral arteries are patent. The distal vertebral arteries are patent. The basilar artery is patent patent. Perfusion findings: There is a moderate-sized area of increased mean transient time and Tmaxin the left frontal and parietal lobes, the lateral aspect of the leftbasal ganglia and the left insula without significant change in cerebral blood volume or cerebral blood flow, likely representing a moderate-sized areaof ischemia/penumbra in the left middle cerebral artery territory. IMPRESSION: 1. Findings consistent with a small acute infarct in the posterior left insula and the left frontal lobe. Accounting for the presence ofresidual contrast from an outside hospital, no evidence of acute intracranial hemorrhage. 2. Complete occlusion of the left internal carotid artery from itsorigin to the carotid siphon with retrograde reconstitution of the supraclinoid portion and the carotid terminus. 3. Occlusion of an M2 segment of the left middle cerebral artery fromits origin and another M2 segment in the midportion in the left sylvian fissure. 4. Perfusion examination demonstrate a moderate size area of ischemia/penumbra. These findings were discussed in detail with the patient's careprovider, Dr. Bejarano by Dr. Swift via telephone at 9:15 AM on 12/02/2022 withreadback comprehension and verification. > Interpreting Provider: Cailin Swift MD on 12/02/2022 10:28 AM Jose Francisco Deleon MD CT ORDERABLES * CT BRAIN - Stroke (12/02/2022 11:40 AM CDT) Anatomical Region Laterality Modality Head Computed Tomogra phy 12/02/2022 9:42 AM CDT Impressions 12/02/2022 10:28 AM CDT IMPRESSION: 1. Findings consistent with a small acute infarct in the posterior left insula and the left frontal lobe. Accounting for the presence of residual contrast from an outside hospital, no evidence of acute intracranial hemorrhage. 2. 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 3. Occlusion of an M2 segment of the left middle cerebral artery from its origin and another M2 segment in the midportion in the left sylvian fissure. 4. Perfusion examination demonstrate a moderate size area of ischemia/penumbra. These findings were discussed in detail with the patient's care provider, Dr. Bejarano by Dr. Swift via telephone at 9:15 AM on 12/02/2022 with readback comprehension and verification. > Interpreting Provider: Cailin Swift MD on 12/02/2022 10:28 AM Narrative 12/02/2022 10:28 AM CDT PROCEDURE: CT CEREBRAL PERFUSION ANALYSIS, CT BRAIN STROKE, CT ANGIO BRAIN NECK STROKE, DATE/TIME OF EXAM: 12/02/2022 8:59 AM, LOCATION [facility] INDICATION: R53.1: Weakness ADDITIONAL CLINICAL INFORMATION: Ordering Provider Reason For Exam: stroke Technologist Note: Additional: EXAMINATION: 1. Computed tomographic (CT) angiography of the head without and with contrast 2. CT angiography of the neck with contrast 3. CT cerebral perfusion TECHNIQUE: CT of the head was performed without contrast according to standard protocol. Then CT angiography of the head and neck and CT cerebral perfusion was obtained after the uneventful administration of 60 mL Isovue-370 intravenous contrast. Three dimensional postprocessing was performed by the technologist and sent to the workstation for review. This study was analyzed using artificial intelligence software for Large Vessel Occlusion detection. COMPARISON: No prior study is available for comparison at the time of this dictation. FINDINGS: Non-angiographic findings: There is a small area of hypoattenuation in the posterior aspect of the left insula cortex and in the posterior left frontal lobe, consistent with acute infarct. Accounting for the presence of intravascular contrast which reduces the sensitivity to detect subtle intracranial hemorrhage, no distinct acute intracranial hemorrhage, or intra- or extra-axial fluid collections are identified. The ventricles are of normal size, shape, and morphology. The basal cisterns are patent. No mass effect or midline shift is seen. There is vascular calcification of the carotid siphons. The visualized portions of the orbits, paranasal sinuses, and mastoids appear normal. No acute calvarial fracture is identified. No soft tissue abnormalities are identified in the neck. Mild multilevel degenerative disc and joint disease is noted. Angiographic findings: Neck: There is atherosclerotic disease of the aortic arch. The configuration of the brachiocephalic vessels is typical. There is scattered atherosclerotic calcification of the innominate and subclavian arteries. There is atherosclerotic disease in the right carotid bifurcation and origin of the right internal carotid artery with less than 50 percent focal stenosis. The right common and internal carotid arteries otherwise appear patent. The left common carotid artery is patent. Atherosclerotic disease at the left carotid bifurcation causing complete occlusion of the left internal carotid artery with reconstitution of the supraclinoid segment and the left carotid terminus. There is atherosclerotic disease in the cervical vertebral arteries without significant focal stenosis. Head: There is atherosclerotic disease involving the distal internal carotid arteries without significant focal stenosis. The anterior cerebral arteries are patent. There is severe stenosis at the distal M1 segment of the left middle cerebral artery. There is occlusion of an M2 segment starting at its origin and occlusion of an other M2 segment in the midportion in the left sylvian fissure. The posterior cerebral arteries are patent. The distal vertebral arteries are patent. The basilar artery is patent patent. Perfusion findings: There is a moderate-sized area of increased mean transient time and Tmax in the left frontal and parietal lobes, the lateral aspect of the left basal ganglia and the left insula without significant change in cerebral blood volume or cerebral blood flow, likely representing a moderate-sized area of ischemia/penumbra in the left middle cerebral artery territory. Procedure Note Cailin Swift MD - 12/02/2022 PROCEDURE: CT CEREBRAL PERFUSION ANALYSIS, CT BRAIN STROKE, CT ANGIOBRAIN NECK STROKE, DATE/TIME OF EXAM: 12/02/2022 8:59 AM, LOCATION [facility] INDICATION: R53.1: Weakness ADDITIONAL CLINICAL INFORMATION: Ordering Provider Reason For Exam: stroke Technologist Note: Additional: EXAMINATION: 1. Computed tomographic (CT) angiography of the head without and with contrast 2. CT angiography of the neck with contrast 3. CT cerebral perfusion TECHNIQUE: CT of the head was performed without contrast according to standard protocol. Then CT angiography of the head and neck and CTcerebral perfusion was obtained after the uneventful administration of 60 mL Isovue-370 intravenous contrast. Three dimensional postprocessing was performed by the technologist and sent to the workstation for review. This study was analyzed using artificial intelligence software for Large Vessel Occlusion detection. COMPARISON: No prior study is available for comparison at the time ofthis dictation. FINDINGS: Non-angiographic findings: There is a small area of hypoattenuation in the posterior aspect of the left insula cortex and in the posterior left frontal lobe, consistentwith acute infarct. Accounting for the presence of intravascular contrast which reduces the sensitivity to detect subtle intracranial hemorrhage, no distinct acute intracranial hemorrhage, or intra- or extra-axial fluid collections are identified. The ventricles are of normal size, shape, and morphology.The basal cisterns are patent. No mass effect or midline shift is seen.There is vascular calcification of the carotid siphons. The visualized portions of the orbits, paranasal sinuses, and mastoids appear normal. No acute calvarial fracture is identified. No soft tissue abnormalities are identified in the neck. Mild multilevel degenerative disc and joint disease is noted. Angiographic findings: Neck: There is atherosclerotic disease of the aortic arch. The configurationof the brachiocephalic vessels is typical. There is scatteredatherosclerotic calcification of the innominate and subclavian arteries. There is atherosclerotic disease in the right carotid bifurcation and origin ofthe right internal carotid artery with less than 50 percent focal stenosis.The right common and internal carotid arteries otherwise appear patent. The left common carotid artery is patent. Atherosclerotic disease at theleft carotid bifurcation causing complete occlusion of the left internalcarotid artery with reconstitution of the supraclinoid segment and the leftcarotid terminus. There is atherosclerotic disease in the cervical vertebral arteries without significant focal stenosis. Head: There is atherosclerotic disease involving the distal internal carotid arteries without significant focal stenosis. The anterior cerebralarteries are patent. There is severe stenosis at the distal M1 segment of theleft middle cerebral artery. There is occlusion of an M2 segment starting atits origin and occlusion of an other M2 segment in the midportion in theleft sylvian fissure. The posterior cerebral arteries are patent. The distal vertebral arteries are patent. The basilar artery is patent patent. Perfusion findings: There is a moderate-sized area of increased mean transient time and Tmaxin the left frontal and parietal lobes, the lateral aspect of the leftbasal ganglia and the left insula without significant change in cerebral blood volume or cerebral blood flow, likely representing a moderate-sized areaof ischemia/penumbra in the left middle cerebral artery territory. IMPRESSION: 1. Findings consistent with a small acute infarct in the posterior left insula and the left frontal lobe. Accounting for the presence ofresidual contrast from an outside hospital, no evidence of acute intracranial hemorrhage. 2. Complete occlusion of the left internal carotid artery from itsorigin to the carotid siphon with retrograde reconstitution of the supraclinoid portion and the carotid terminus. 3. Occlusion of an M2 segment of the left middle cerebral artery fromits origin and another M2 segment in the midportion in the left sylvian fissure. 4. Perfusion examination demonstrate a moderate size area of ischemia/penumbra. These findings were discussed in detail with the patient's careprovider, Dr. Bejarano by Dr. Swift via telephone at 9:15 AM on 12/02/2022 withreadback comprehension and verification. > Interpreting Provider: Cailin Swift MD on 12/02/2022 10:28 AM Jose Francisco Deleon MD CT ORDERABLES * IR INTRACRANIAL [facility] THROMBECT (12/02/2022 10:49 AM CDT) Anatomical Region Laterality Modality Head X-Ray Angiograph y 12/02/2022 10:5 8 AM CDT Impressions 12/06/2022 9:55 AM CDT Impression: 1. 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 Proximal left ICA mild stenosis after thrombectomy Initial TICI: 0 Final TICI: 2B I, Dr. Daren Rudolph, was present and performed/supervised the entire procedure. I, Daren Rudolph MD have personally reviewed and interpreted this examination/study. 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 LKW 6:50. CTA showed L MCA, ICA occlusion. s/p TNK in OSH. CTP favorable. Will take to IR for MT. Notification Time: 8:58 NIHSS Score: 13 ASPECTS: 8 In-room: 9:27 Puncture Time: 9:41 Location of Clot: Left ICA Left MCA Initial TICI: 0 Time to Clot: 0958 Time to Reperfusion: 1047 Final TICI: 2B Evaluator: Dr. Phong Rudolph Editor Newspaper(s): Stacie Carmona K. Narayanan Vessels: Ultrasound Guided Access of Femoral Artery Left Common Carotid Artery Angiogram: Cervical and Cerebral Intracranial Catheterization Mechanical Thrombectomy with Matthias Retrievable Stent and Reperfusion Catheter Angiography Through the Existing Catheter Right Femoral Artery Angiogram Anesthesia: General Anesthesia was performed and monitored by an attending Anesthesiologist and their assistant kitchen manager throughout the entirety of the case Procedural Detail: The risks, benefits, and alternatives to procedure were discussed in detail with the patient and his family. These included but were not limited to the risk of blood loss, vessel injury, stroke, renal injury, and contrast allergy. The patient was brought to the biplane angiography suite where he underwent prep and drape procedures. Limited ultrasound of the common femoral artery demonstrated a patent vessel. The take off of the profunda and other arteries were identified. A garcia scale image was documented. The right common femoral artery was accessed using a micropuncture needle. The needle entry was documented. Following a series of exchanges, a 8 [place] Hythiam pressure-sensing sheath sheath was placed in the right femoral artery. A Zoom 88 Guide and a 6 [place] [employer] Select Oneal 2 catheter along with a stiff 0.035 Glidwire was navigated into the aortic arch. The catheter was used to select the left subclavian artery followed by the left vertebral artery and a cerebral angiogram was obtained. The catheter was returned to the arch and used to select the left common carotid artery followed by the left internal carotid artery and a cerebral angiogram was obtained. The Select catheter and glidewire were removed from the arterial system. A Marksman and Zoom 071 along with a Synchro 14 microwire were coaxially inserted and used to access the large vessel occlusion. Through the Marksman, a 6mm x 44mm Matthias retrievable stent was deployed. The microcatheter was then removed from the arterial system. After 5min were allowed to elapse for maximal stent expansion, suction was initiated through the reperfusion catheter and the clot was engaged proximally. The retrievable stent and reperfusion catheter were then removed from the arterial system. An angiogram through the existing catheter was performed. The right femoral artery angiogram was obtained through the sheath. All catheters and sheaths were removed from the arterial system. Hemostasis was achieved using a 8 [place] Angio-Seal closure device. Hemostasis was immediate at the end of the closure procedure. The right dorsalis pedis pulse was palpable at the end of the closure procedure. The patient tolerated the procedure without immediate complications. He was returned to the recovery area in hemodynamically stable condition. The estimated blood loss was less than 100 mL. A total of 16.6 minutes of fluoroscopic time and 60 ml of Isovue-300 contrast were utilized for the study. Findings: There was good arterial, capillary, and venous opacification of all angiographic runs. The left common carotid artery angiogram reveals a occlusion of left ICA starting in the proximal segment. The visualized branches of the external carotid artery are normal in course and caliber. The cervical segment of the internal carotid artery is normal in course and caliber. Left MCA occlusion in the M1 segment. The left common carotid artery angiogram reveals mild stenosis of the the proximal segment on the ICA with diminished caliber of the vessel and irregularities at it's origin. The cerebral angiogram after MT reveals a normal course but diminished caliber of the intracranial segments of the internal carotid artery. The middle cerebral artery has a trifurcation with TICI 2B recanalization, anterior cerebral artery is normal in course and caliber as is the venous drainage. The right femoral artery angiogram reveals a puncture site above the femoral bifurcation. Procedure Note Daren Rudolph MD - 12/06/2022 PROCEDURE: IR INTRACRANIAL [facility] THROMBECT DATE/TIME OF EXAM: 12/02/2022 9:24 AM Procedure: Cerebral Angiogram and Mechanical Thrombectomy for AcuteStroke History: 66 M p/w L MCA syndrome with aphasia and right sided weakness.LKW 6:50. CTA showed L MCA, ICA occlusion. s/p TNK in OSH. CTP favorable.Will take to IR for MT. Notification Time: 8:58 NIHSS Score: 13 ASPECTS: 8 In-room: 9:27 Puncture Time: 9:41 Location of Clot: Left ICA Left MCA Initial TICI: 0 Time to Clot: 0958 Time to Reperfusion: 1047 Final TICI: 2B Evaluator: Dr. Phong Rudolph Editor Newspaper(s): Stacie Carmona K. Narayanan Vessels: Ultrasound Guided Access of Femoral Artery Left Common Carotid Artery Angiogram: Cervical and Cerebral Intracranial Catheterization Mechanical Thrombectomy with Matthias Retrievable Stent and Reperfusion Catheter Angiography Through the Existing Catheter Right Femoral Artery Angiogram Anesthesia: General Anesthesia was performed and monitored by an attending Anesthesiologist and their assistant kitchen manager throughout the entirety of the case Procedural Detail: The risks, benefits, and alternatives to procedure were discussed indetail with the patient and his family. These included but were not limited tothe risk of blood loss, vessel injury, stroke, renal injury, and contrast allergy. The patient was brought to the biplane angiography suite wherehe underwent prep and drape procedures. Limited ultrasound of the common femoral artery demonstrated a patent vessel. The take off of theprofunda and other arteries were identified. A garcia scale image was documented.The right common femoral artery was accessed using a micropuncture needle.The needle entry was documented. Following a series of exchanges, a 8 [place] Hythiam pressure-sensing sheath sheath was placed in the right femoral artery. A Zoom 88 Guide and a 6 [place] Select Oneal 2catheter along with a stiff 0.035 Glidwire was navigated into the aortic arch. The catheter was used to select the left subclavian artery followed bythe left vertebral artery and a cerebral angiogram was obtained. Thecatheter was returned to the arch and used to select the left common carotidartery followed by the left internal carotid artery and a cerebral angiogramwas obtained. The Select catheter and glidewire were removed from the arterial system.A Marksman and Zoom 071 along with a Synchro 14 microwire were coaxially inserted and used to access the large vessel occlusion. Through the Marksman, a 6mm x 44mm Matthias retrievable stent was deployed. The microcatheter was then removed from the arterial system. After 5minwere allowed to elapse for maximal stent expansion, suction was initiated through the reperfusion catheter and the clot was engaged proximally.The retrievable stent and reperfusion catheter were then removed from the arterial system. An angiogram through the existing catheter wasperformed. The right femoral artery angiogram was obtained through the sheath. All catheters and sheaths were removed from the arterial system.Hemostasis was achieved using a 8 [place]i Angio-Seal closure device. Hemostasis was immediate at the end of the closure procedure. The right dorsalis pedis pulse was palpable at the end of the closure procedure. The patient tolerated the procedure without immediate complications. Hewas returned to the recovery area in hemodynamically stable condition. The estimated blood loss was less than 100 mL. A total of 16.6 minutes of fluoroscopic time and 60 ml of Isovue-300 contrast were utilized for the study. Findings: There was good arterial, capillary, and venous opacification of all angiographic runs. The left common carotid artery angiogram reveals a occlusion of left ICA starting in the proximal segment. The visualized branches of theexternal carotid artery are normal in course and caliber. The cervical segment of the internal carotid artery is normal in course and caliber. Left MCA occlusion in the M1 segment. The left common carotid artery angiogram reveals mild stenosis of thethe proximal segment on the ICA with diminished caliber of the vessel and irregularities at it's origin. The cerebral angiogram after MT reveals a normal course but diminished caliber of the intracranial segments of the internal carotid artery. The middle cerebral artery has a trifurcationwith TICI 2B recanalization, anterior cerebral artery is normal in courseand caliber as is the venous drainage. The right femoral artery angiogram reveals a puncture site above the femoral bifurcation. Impression: 1. 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 Proximal left ICA mild stenosis after thrombectomy Initial TICI: 0 Final TICI: 2B I, Dr. Daren Rudolph, was present and performed/supervised theentire procedure. I, Daren Rudolph MD have personally reviewed and interpreted this examination/study. > Interpreting Provider: Daren Rudolph MD on 12/06/2022 9:55 AM Pacheco Bocanegra MD IR ORDERABLES * ARTERIAL LINE PERFORMABLE (12/02/2022 10:10 AM CDT) Georgia Castro Anes Asst - 12/02/2022 10:10 AM CDT Georgia Keith Anes Asst 12/02/2022 10:11 AM Arterial Line Placement Procedure Note Procedure: Arterial Line ([id number]). Procedure Section Indications: continuous blood pressure monitoring. Skin Prep: Chloraprep. Orientation: Left. Site: radial. Sterile Technique: small sterile fenestrated drape, sterile gloves, mask and cap. Gauge: 20. Number of Attempts: 1. Procedure Tolerance: tolerated well. Events: none. Procedure Start Time: 12/02/2022 9:36 AM. Staff Section Anesthesia Provider: Sofia Vaughn MD, Performed the procedure Sofia Vaughn MD GENERAL ANESTHESI A ORDERABLES * ETT LINE PERFORMABLE (12/02/2022 10:08 AM CDT) Georgia Castro Anes Asst - 12/02/2022 10:08 AM CDT Georgia Keith Anes Asst 12/02/2022 10:09 AM Endotracheal Tube Placement: Patient Location: Other - please comment (IR). Intubation Event Date/Time: 12/02/2022 9:35 AM Procedure: intubation ([id number]). Procedure Section: Induction: standard IV Patient Position: sniffing Blade Type: Cummings Blade Size: 2 Laryngoscopy View: grade 1 (full cords) Intubation Adjuncts: cricoid pressure (RSI) Tube: endotracheal tube Placement: oral Tube type: cuff - inflated Tube Size (MM): 8 Depth of Insertion (CM): 23 Measured From: teeth Cuff Inflated With: air Number of Attempts: 1. Placement Verified By: direct visualization, CO2 detector, bilateral breath sounds and CO2 monitor CXR Findings: ETT in proper place. Tube secured with: adhesive tape. Dentition unchanged? Yes Difficult Airway? No. Procedure Start Time: 12/02/2022 9:35 AM. Staff Section Anesthesia Provider: Georgia Keith Anes Asst, Performed the procedure Sofia Vaughn MD GENERAL ANESTHESI A ORDERABLES * EKG 12-LEAD (12/02/2022 9:18 AM CDT) Ventricular Rate 79 BPM [facility] Atrial Rate 79 BPM [facility] M[facility] P-R Interval 158 ms [facility] QRS Duration ms 84 ms [facility] Q-T Interval ms 386 ms [facility] M[facility] QTC Calculation (Bezet) 442 ms [facility] M[facility] Calculated P Nora 58 degrees [facility] Calculated R Nora 50 degrees [facility] M[facility] Calculated T Nora 61 degrees [facility] MUSE Interpretation EKG NORMAL SINUS RHYTHM POSSIBLE SEPTAL INFARCT , AGE UNDETERMINED ABNORMAL ECG NO PREVIOUS ECGS AVAILABLE Confirmed by HEMANTH LEE MD ([id number]) on 12/02/2022 8:45:49 PM [facility]USE 12/02/2022 9:18 AM CDT 12/02/2022 8:45 PM CDT Jose Francisco Deleon MD ECG ORDERABLES [facility] M[facility] Care Teams [employer] Internship Relationship Specialty Start Date End Date Kaela Chacon, INSURANCE ASSOCIATE-SOUND EFFECTS TECHNICIAN [address] [place] [address] PCP - General Repairer General 01/10/23
--- OUTSIDE RECORDS SUMMARY | 2024-05-21 13:56 | XMS_ITS | Clinical Summary ---
Author Organization [facility] Address [address] [place] [address] Care Team Providers Care Toe Lining Closer Name Role Phone Kaela Chacon DARSHAN-SUPERVISOR PILE DRIVING Primary Care Provider Source Comments [facility],non-owned Affiliates and Associated Physician Practices is amultiple site organization consisting of ambulatory clinics and hospital sitesin [place], [place], [place] and [place]. This disclosure is being madepursuant to the Care Everywhere program and may not contain all information available regarding this patient. Last updated 17.[facility] Allergies No known active allergies Medications * Be aware that medications may not be up to date on this document. Alwaysverify current medications with the patient. Medication Sig Dispensed Refills Start Date End Date Status aspirin (Aspirin) 81 MG chew tablet Take 1 (one) tablet by mouth once daily 12/08/2022 Active atropine 1 % ophthalmic solution Instill 1 (one) drop into left eye 3 times daily 15 mL 2 01/13/2023 Active brimonidine (Alphagan) 0.2 % ophthalmic solution Instill 1 (one) drop into left eye 3 times daily 15 mL 4 01/13/2023 Active dorzolamide-timolol (Cosopt) 22.3-6.8 MG/ML ophthalmic solution Instill 1 (one) drop into left eye 3 times daily 30 mL 4 01/13/2023 Active Cholecalciferol 125 MCG (5000 UT) Take 125 mcg by mouth once daily 12/22/2022 Active vitamin B-12 (Cyanocobalamin) 500 MCG tablet Take 2 (two) tablets by mouth once daily 12/22/2022 Active rosuvastatin (Crestor) 40 MG tablet Take 1 (one) tablet by mouth once daily 01/02/2023 Active lisinopril (Prinivil; Zestril) 10 MG tablet Take 1 (one) tablet by mouth once daily 03/10/2023 Active gabapentin (Neurontin) 300 MG capsuleIndications: Restless Leg Syndrome Take 1 (one) capsule by mouth every 12 hours Reasons: Restless Leg Syndrome 07/25/2023 Active acetaminophen (Tylenol) 325 MG tablet Take 2 (two) tablets by mouth every 6 hours as needed Maximum allowable Acetaminophen amount = 4 Grams (4000 mg) / 24 hours. 07/25/2023 Active ondansetron, disintegrating, (Zofran ODT) 4 MG tablet Take 1 (one) tablet by mouth every 6 hours as needed for Nausea/Vomiting Allow tablet to dissolve on the tongue 07/25/2023 Active niMODipine (Nimotop) 30 MG capsule Take 2 (two) capsules by mouth every 4 hours 07/25/2023 Active polyethylene glycol 3350 (Miralax) 17 g packet Take 17 (seventeen) g by mouth once daily 07/26/2023 Active senna (Senokot) 8.6 MG tablet Take 1 (one) tablet by mouth once daily 07/26/2023 Active metoclopramide (Reglan) injection 1 mL by Intravenous route every 6 hours as needed for Nausea/Vomiting 07/25/2023 Active baclofen (Lioresal) 5 MG TABS Take 0.5 (one-half) tablet by mouth once daily 07/26/2023 Active prednisoLONE acetate (Pred Forte) 1 % ophthalmic suspension INSTILL 1 DROP INTO LEFT EYE THREE TIMES DAILY 15 mL 02/02/2024 Active lisinopril (Prinivil; Zestril) 2.5 MG tablet Take 1 (one) tablet by mouth once daily Active Active Problems Problem Noted Date Diagnosed Date Nontraumatic intracerebral h emorrhage, unspecified cerebral location, unspecified laterality 07/10/2023 Central retinal artery occlusion of left eye 08/2022 Overview (01/12/2023): Patient with recent stroke affecting the left hemisphere. Although he does not recall vision loss at that time, he was quite disabled from the stroke and continues to recover. Therefore we suspect that he also developed significant embolism of the retinal circulation of the left eye causing arterial occlusion and later onset of neovascular glaucoma of the left eye which he presents with for the first time to our department in the emergency room. Jose Francisco Santos MD 01/12/2023 7:57 PM Neovascular glaucoma, left, severe stage Overview (01/12/2023): As noted elsewhere, we suspect that patient developed extensive retinal artery occlusion from emboli at the time of stroke recently affecting the left side and was unaware of the vision loss due to side effects of the stroke causing global neurologic defects. He presented to our emergency room last night with severe elevated intraocular pressure and exam today is consistent with severe neovascular glaucoma left eye. We explained to the patient and his family we do not expect vision recovery beyond light perception based on fundus appearance documented by photographs today. Gonioscopy on the right shows wide open angle with normal trabecular meshwork pigmentation compared with extensive neovascularization of the angle on the left with fibrovascular proliferation causing forward displacement of the base of the iris towards the angle 360 degrees on the left. Jose Francisco Santos MD 01/12/2023 8:00 PM Glaucoma suspect, right 01/12/2023 Overview (01/12/2023): Although we do not see signs of glaucoma Right eye, we will follow the right eye as a glaucoma suspect temporarily as a precaution until we have baseline information as we do not suspect that the patient is currently at risk of neovascular glaucoma development in the right eye also has embolic stroke appeared to only affects the left side recently. Jose Francisco Santos MD 01/12/2023 8:01 PM Weakness 12/02/2022 Hypertension, unspecified type 12/02/2022 Facial droop 12/02/2022 Acute ischemic left MCA stroke 12/02/2022 Overview (01/13/2023): According to the patient and his family this was due to carotid artery disease causing emboli with stroke including left central retinal artery occlusion/ophthalmic artery occlusion. Jose Francisco Santos MD 01/13/2023 5:39 PM Right sided weakness 12/02/2022 Received tissue plasminogen activator (tPA) less than 24 hours prior to arrival 12/02/2022 Encounters Date Type Department Care Team Description 05/02/2024 3:20 PM SURVEY RESEARCH MANAGER Office Visit [facility] - Ophthalmology [address] [place] [phone] Jose Francisco Santos MD Postsurgical states following surgery of eye and adnexa (Primary Dx) 05/02/2024 Travel 04/24/2024 9:20 AM SURVEY RESEARCH MANAGER Anesthesia Event [facility]AMB SURGERY [address] [place] [phone] Steven Barnett MD Rinderer, Mallory, APRN-SUPERVISOR PILE DRIVING 04/24/2024 9:10 AM SURVEY RESEARCH MANAGER - 04/24/2024 10:10 AM SURVEY RESEARCH MANAGER Surgery [facility]B SURGERY [address] [place] [phone] Jose Francisco Santos MD Cyclophotocoagulation 360 degrees left eye, Kenalog depot- LEFT EYE 04/24/2024 7:39 AM SURVEY RESEARCH MANAGER - 04/24/2024 10:31 AM SURVEY RESEARCH MANAGER Hospital Encounter [facility] SURGERY [address] [place] [phone] Jose Francisco Santos MD Surgery General Discharge Disposition: Home or Self Care 04/24/2024 Travel 02/28/2024 Travel 02/20/2024 10:15 AM SURVEY RESEARCH MANAGER [facility] [address] [place] [phone] Genoveva Wheeler, PLASTER DIE MAKER-SUPERVISOR PILE DRIVING Filemon Patel MD Cerebral aneurysm (HCC) (Primary Dx) 02/20/2024 9:27 AM SURVEY RESEARCH MANAGER - 02/20/2024 11:59 PM SURVEY RESEARCH MANAGER Hospital Encounter [facility] CAT SCAN [address] [place] [phone] Genoveva Wheeler PLASTER DIE MAKER-SUPERVISOR PILE DRIVING Discharge Disposition: Home or Self Care 02/20/2024 Travel from Last 3 Months Social History Tobacco Use Types Packs/Day Years [...] Recorded Patient Health Questionnaire-2 Score 0 07/12/2023 [facility] - Occupational Stress Questionnaire Answer Date Recorded [...] place to sleep or slept in a skilled nursing (including now)? No 07/11/2023 Sex and Gender Information Value Date Recorded Sex Assigned at Not on file Gender Identity Not on file Sexual Orientation Not on file Last Filed Vital Signs Vital Sign Reading Time Taken Comments Blood Pressure 124/63 04/24/2024 10:01 AM SURVEY RESEARCH MANAGER Pulse 72 04/24/2024 9:51 AM SURVEY RESEARCH MANAGER Temperature 36.4 C (97.5 F) 04/24/2024 9:51 AM SURVEY RESEARCH MANAGER Respiratory Rate 12 04/24/2024 9:51 AM SURVEY RESEARCH MANAGER Oxygen Saturation 96% 04/24/2024 9:51 AM SURVEY RESEARCH MANAGER Inhaled Oxygen Concentration - - Weight 98.3 kg (216 lb 12.8 oz) 04/24/2024 8:14 AM SURVEY RESEARCH MANAGER Height 185.4 cm (6' 1 ) 04/24/2024 8:14 AM SURVEY RESEARCH MANAGER Body Mass Index 28.6 04/24/2024 8:14 AM SURVEY RESEARCH MANAGER Plan of Treatment Upcoming Encounters Date Type Department Care Team (Late st Contact Info) Description 06/18/2024 9:00 AM CDT [facility] [place] [phone] Jose Francisco Santos MD [address] [place] [phone] 08/20/2024 9:00 AM CDT Appointment [facility] CAT SCAN [address] [place] [phone] Genoveva Wheeler, PLASTER DIE MAKER-SUPERVISOR PILE DRIVING [address] [place] [phone] 08/20/2024 10:00 AM CDT Office Visit [facility] - Neurosurgery [address] [place] [phone] Filemon Patel MD [address] [place] [phone] Health Maintenance Due Date Last Done Comments COLOGUARD (AGES 45-75) - COLON CA SCREENING 1954 COLON MONITORING 1954 COLONOSCOPY - COLON CA SCREENING 1954 CT COLONOGRAPHY - COLON CA SCREENING 1954 Colorectal Cancer Screening 1954 FIT - COLON CA SCREENING 1954 FLEX SIG - COLON CA SCREENING 1954 MEDICARE AWV 12 MONTHS 1954 HEPATITIS C SCREENING 12/09/1972 DTAP/TDAP/TD VACCINES (1 - Tdap) 1973 PNEUMOCOCCAL VACCINE 50+ (1 of 1 - PCV) 2004 ZOSTER VACCINE (1 of 2) 2004 Respiratory Syncytial Virus (RSV) Vaccine Pt: or over 60 yrs (1 - Risk 60-74 years 1-dose series) 2014 AAA SCREENING 12/15/2019 COVID-19 VACCINE (3 - 2023- season) 2023 06/17/2020, 05/20/2020 DEPRESSION SCREENING 04/10/2024 07/10/2023, 01/11/20 23 SCREENING FOR DIABETES 02/07/2027 , 07/26/2023, 07/25/2023, Additional history exists INFLUENZA VACCINE Completed 01/17/2024, 04/13/2020 HEPATITIS B VACCINE Aged Out No longe r eligible based on patient's age to complete this topic HIB VACCINE Aged Out No longer eligi ble based on patient's age to complete this topic HPV VACCINE Aged Out No longer eligi ble based on patient's age to complete this topic MENINGOCOCCAL (Group B) VACCINE Aged Out No longer eligible based on patient's age to complete this topic MENINGOCOCCAL VACCINE Aged Out No [place] eligible based on patient's age to complete this topic Medical Devices Implanted Type Area Broom Machine Operator Device Identifier Shelf Expiration Date Model / Serial / Lot Coil Hydroframe Hdrcl Vtrk 6cm 3mm 10 Implanted:Qty: 1 on 07/12/2023 by Daren Rudolph MD at [facility] Right: [employer] 11/07/2026 [id number] / / [id number] Procedures Procedure Name Priority Date/Time Associated Diagnosis Comments [place] CILIARY BDY DESTRUC; CYCLOPHOTOCOAG TRANSSCLERAL 04/24/2024 9:16 AM SURVEY RESEARCH MANAGER Neovascular glaucoma, left, severe stage Special Needs SUPINE, MAC BLOCK CT ANGIO BRAIN Routine 02/20/2024 9:51 AM SURVEY RESEARCH MANAGER Cerebral aneurysm (HCC) BASIC METABOLIC PANEL (CALCIUM TOTAL) AM Draw 02/08/2024 8:57 AM CDT Cerebral aneurysm (HCC) from Last 3 Months or Most Recently Relevant to Health Maintenance Results * CT ANGIO BRAIN (02/20/2024 9:51 AM SURVEY RESEARCH MANAGER) Anatomical Region Laterality Modality Head Computed Tomogra phy 02/20/2024 10:3 2 AM SURVEY RESEARCH MANAGER Impressions 02/20/2024 10:46 AM SURVEY RESEARCH MANAGER IMPRESSION: 1. No acute intracranial hemorrhage. 2. 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 Accounting for the beam hardening artifacts from the embolization coil, no evidence of residual or recurrent aneurysm. 3. 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 > Interpreting Provider: Cailin Swift MD on 02/20/2024 10:46 AM Narrative 02/20/2024 10:46 AM SURVEY RESEARCH MANAGER PROCEDURE: CT ANGIO BRAIN, DATE/TIME OF EXAM: 02/20/2024 9:52 AM, LOCATION [facility] INDICATION: I67.1: Cerebral aneurysm (HCC) ADDITIONAL [...] DATE/TIME OF EXAM: 02/20/2024 9:52 AM, LOCATION [facility] INDICATION: I67.1: Cerebral aneurysm (HCC) ADDITIONAL [...] MD on 02/20/2024 10:46 AM Genoveva Wheeler PLASTER DIE MAKER-SUPERVISOR PILE DRIVING CT ORDERABLE S * BASIC METABOLIC PANEL (CALCIUM TOTAL) (02/08/2024 8:57 AM [facility]) BUN 17 7 - 26 mg/dL 02/08/2024 9:55 AM [facility] Creatinine 0.77 0.71 - 1.16 mg/dL 02/08/2024 9:55 AM [facility] Sodium 138 136 - 145 mmol/L 02/08/2024 9:55 AM [facility] Potassium 4.1 3.5 - 4.5 mmol/L 02/08/2024 9:55 AM [facility] Chloride 106 98 - 107 mmol/L 02/08/2024 9:55 AM [facility] CO2 24 22 - 29 mmol/L 02/08/2024 9:55 AM [facility] Glucose 90 70 - 99 mg/dL 02/08/2024 9:55 AM [facility] Calcium 9.1 8.4 - 10.2 mg/dL 02/08/2024 9:55 AM [facility] Anion Gap 8 6 - 16 02/08/2024 9:55 AM [facility] BUN/Creatinine Ratio 22 7 - 23 02/08/2024 9:55 AM [facility] Osmolality Calculated 287 275 - 295 mOsm/kg 02/08/2024 9:55 AM [facility] eGFR by CKD-EPI >90 >=90 mL/min/1.7 3 m2 02/08/2024 9:55 AM [facility] Blood BLOOD SPECIMEN / Unknown Venipuncture / Unknown 02/08/2024 8:57 AM CDT 02/08/2024 9:23 AM CDT Azalia Murillo MD LAB - CHEMISTRY GENNARO [facility]ST[facility] [address] [place] [address], [place] [phone] from Last 3 Months or Most Recently Relevant to Health Maintenance Advance Directives * Full Code (Latest Code Status on File) Date Activated Date Inactivated Comments 07/10/2023 8:50 PM 07/26/2023 6:35 PM * Full Code Date Activated Date Inactivated Comments 12/02/2022 9:30 AM 12/07/2022 7:34 PM Care Teams Toe Lining Closer Relationship Specialty Start Date End Date Kaela Chacon, PLASTER DIE MAKER-SUPERVISOR PILE DRIVING [address] [place] [address] PCP - General Leasing Coordinator 01/10/23
--- OUTSIDE RECORDS SUMMARY | 2024-05-21 13:56 | XMS_ITS | Patient Health Record ---
Author Organization [facility] Address [address] [place] [address] Care Team Providers Care Refrigerator Car Icer Name Role Phone Michelle HOUSTON, [facility] Primary Care Provider Charlie DAIGLE MD, ARACELIS Unavailable REASON FOR REFERRAL No Information PLAN OF TREATMENT Pending Test Test Name Order Date Endoscopic Retrograde Cholangiopancreato graphy (ERCP) 10/16/2019 Insurance Providers Payer Name Payer Address Payer Phone Subscriber Number Group Number Insured Name Patient Relationship to Insured Coverage Start Date Coverage End Date [employer] [address] [place], [place] [id number] Chandler Quiroga Self - patient is the insured
--- OUTSIDE RECORDS SUMMARY | 2024-05-21 13:56 | XMS_ITS | Clinical Summary ---
Author Organization [facility] Address [address] [place] [address] Care Team Providers Care Painter Foreman Name Role Phone AlexshruthigracieCristianogibran [facility] Primary Care Provider + Allergies No known active allergies Medications aspirin 81 MG chewable tablet Chew 1 tablet (81 mg total) by mouth daily. 12/09/19 23 Active Vitamin D-3 125 mcg Tab 1 tablet (125 mcg total). 12/23/19 23 Active vitamin B-12 (CYANOCOBALAMIN) 500 MCG tablet 2 tablets (1,000 mcg total). 12/23/19 23 Active prednisoLONE acetate (PRED FORTE) 1 % ophthalmic suspension Apply 1 drop to eye. 01/14/20 23 Active dorzolamide-timolol (COSOPT) 2-0.5 % Solution Apply 1 drop to eye. 01/14/20 23 Active brimonidine (ALPHAGAN) 0.2 % ophthalmic solution Apply 1 drop to eye. 01/14/20 23 Active atropine 1 % ophthalmic solution Apply 1 drop to eye. 01/14/20 23 Active rosuvastatin (CRESTOR) 40 MG tabletIndications:Pure hypercholesterolemia Take 1 tablet (40 mg total) by mouth nightly at bedtime. 90 tablet 3 04/20/19 24 Active lisinopril (PRINIVIL) 2.5 MG tabletIndications:Hypert ension, unspecified type Take 1 tablet by mouth once daily 90 tablet 03/11/20 24 Active Active Problems Problem Noted Date Diagnosed Date Elevated PSA 05/01/2024 Pure hypercholesterolemia 08/16/2023 Stroke ([facility]) 08/09/2023 Nontraumatic intracerebral h emorrhage, unspecified cerebral location, unspecified laterality ([facility]) 07/10/2023 Glaucoma suspect, right 01/12/2023 Overview (02/01/2023): Although we do not see signs of [...] Jose Francisco Santos MD 01/12/2023 8:01 PM Neovascular glaucoma, left, 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 Overview (02/01/2023): As noted elsewhere, we suspect that patient [...] Jose Francisco Santos MD 01/12/2023 8:00 PM Central retinal artery occlusion of left eye 08/2022 Overview (02/01/2023): Patient with recent stroke affecting the left [...] Jose Francisco Santos MD 01/12/2023 7:57 PM Cerebrovascular accident (CV A) due to thrombosis of left middle cerebral artery ([facility]) 01/02/2023 Impaired mobility 01/02/2023 Dysphagia 01/02/2023 Aphasia 01/02/2023 Hypertension, unspecified type 12/02/2022 Resolved Problems Problem Noted Date Diagnosed Date Resolved Date Acute ischemic left MCA stro ke ([facility]) 12/02/2022 01/02/2023 Cholelithiasis with choledocholithiasis 10/07/2019 08/15/2022 Tobacco abuse 10/07/2019 04/20/2023 Encounters Date Type Department Care Team Description 05/01/2024 10:59 AM BOX LIDDER Anesthesia [place] [address] Christopher Santos MD Jarvis, Brittany L, MANAGER CLINICAL INFORMATICS 05/01/2024 10:00 AM BOX LIDDER - 05/01/2024 12:45 PM BOX LIDDER Hospital Encounter [facility] [place] [address] Alberto Ruelas MD Discharge Disposition: Home or Self Care (Routine Discharge) 05/01/2024 9:50 AM BOX LIDDER - 05/01/2024 10:37 AM BOX LIDDER Surgery [facility] [place] [address] Alberto Ruelas MD TRANSRECTAL ULTRASOUND FUSION GUIDED PROSTATE BIOPSY 05/01/2024 Travel 04/25/2024 4:45 PM BOX LIDDER - 04/25/2024 11:59 PM BOX LIDDER Hospital [facility] [address] [place] [address] Alberto Ruelas MD Discharge Disposition: Home or Self Care (Routine Discharge) 04/25/2024 Travel 04/25/2024 Prep for Procedure [facility] [address] [place] [address] Alberto Ruelas MD 04/04/2024 9:08 AM BOX LIDDER - 04/04/2024 11:59 PM BOX LIDDER Hospital Encounter [facility] [address] [place] [address] Alberto Ruelas MD Discharge Disposition: Home or Self Care (Routine Discharge) 04/04/2024 Travel 03/28/[address] [facility] [address] [place] [place] [address] Alberto Ruelas MD 03/28/2024 Prep for Procedure [facility] [place] [place] [address] Alberto Ruelas MD 03/20/2024 6:15 PM BOX LIDDER Anesthesia Event [facility] [place] [address] [place] [address] Matthias Samaniego MD Jarvis, Brittany L, [facility] 03/20/2024 10:38 AM BOX LIDDER - 03/20/2024 12:03 PM BOX LIDDER Hospital Encounter [facility] [place] [address] Alberto Ruelas MD Discharge Disposition: Home or Self Care (Routine Discharge) 03/20/2024 Travel 03/20/2024 Surgery [facility] [place] [address] Alberto Ruelas MD Not Performed TRANSRECTAL ULTRASOUND FUSION GUIDED PROSTATE BIOPSY 03/16/2024 8:35 AM BOX LIDDER - 03/16/2024 11:59 PM BOX LIDDER Hospital Encounter [facility] [address] [place] [address] Alberto Ruelas MD Discharge Disposition: Home or Self Care (Routine Discharge) 03/16/2024 Travel 03/14/[address] [facility] [address] [place] [address] Alberto Ruelas MD 03/14/2024 Travel 02/21/2024 Scan [facility] SRVCS Scanned, [facility] Procedure (SCAN) from Last 3 Months Immunizations Name Administration Dates Next Due Fluzone High Dose (IIV, trivalent, 0.5mL) 2023 Fluzone High Dose - >Age 65 (Prefilled Syringe) 04/13/2020 Hepatitis B 05/11/1994,08/18/1993 MODERNA COVID-19 (12+) MRNA, LNP-S, PF, 100 MCG/ 0.5 ML DOSE 06/17/2020,05/20/2020 PFIZER COVID-19 (12+) MRNA, LNP-S, PF, ALEXANDER-SUCROSE, 30 MCG/0.3 ML (COMIRNATY) 01/17/2024 Tdap (Adacel) 06/08/2019,10/02/2012 Tdap (Generic) 04/13/2020 Family History Medical History Relation Comments Diabetes Father Heart Disease Father Hypertension Father Relation Status Comments Father Social History Tobacco Use Types Packs/Day Years Used Date Smoking Tobacco: Former Cigarettes 0.3 40 Passive Smoke Exposure: Past Smokeless Tobacco: Never Tobacco Cessation:Counseling Given: Not Answered Comments:3 packs per week Quit Nov 2022 - smoked 40 1 ppd Alcohol Use Standard Drinks/Week Comments Not Currently 0 (1 standard drink = 0.6 oz pur e alcohol) rare PHQ-2 Answer Date Recorded Patient Health Questionnaire-2 Score 0 01/17/2024 Sex and Gender Information Value Date Recorded Sex Assigned at Male 05/01/2024 9:58 AM BOX LIDDER Legal Sex Male 5:56 PM CDT Gender Identity Not on file Sexual Orientation Not on file Last Filed Vital Signs Vital Sign Reading Time Taken Comments Blood Pressure 180/94 05/01/2024 12:28 PM BOX LIDDER Pulse 73 05/01/2024 12:28 PM BOX LIDDER Temperature 36.6 C (97.8 F) 05/01/2024 12:28 PM BOX LIDDER Respiratory Rate 18 05/01/2024 12:28 PM BOX LIDDER Oxygen Saturation 98% 05/01/2024 12:28 PM BOX LIDDER Inhaled Oxygen Concentration - - Weight 97.6 kg (215 lb 2.7 oz) 05/01/2024 10:15 AM BOX LIDDER Height 182.9 cm (6') 05/01/2024 10:15 AM BOX LIDDER Body Mass Index 29.18 05/01/2024 10:15 AM BOX LIDDER Plan of Treatment Health Maintenance Due Date Last Done Comments Colorectal Cancer Screening Colonoscopy (10 Years) 1955 Zoster Vaccines (1 of 2) 2004 RSV Immunization or 60+ Years (1 - Risk 60-74 years 1-dose series) 2014 Annual Medicare Wellness Visit 12/15/2019 Pneumococcal Vaccine: 65+ Years (1 of 1 - PCV) 12/15/2019 PHQ-2 (Physician [place]) 04/10/2024 01/17/2024 DTaP, Tdap and Td Vaccines ( 4 - Td or Tdap) 04/13/2030 04/13/2020, 06/08/2019, 10/02/2012 Hepatitis C Completed 08/15/2022 COVID-19 Vaccine Completed 01/17/2024, 06/17/2020, 05/20/2020 Influenza Adult Completed 01/17/2024, 04/13/2020 AAA SCREENING Completed 01/31/2024, 01/17/2024, 10/06/2019 Meningococcal B Vaccine Aged Out No l onger eligible based on patient's age to complete this topic Meningococcal Vaccine Aged Out No hola cheyenne eligible based on patient's age to complete this topic RSV Immunizations Under 20 Months Aged Out No longer eligible b ased on patient's age to complete this topic Procedures Procedure Name Priority Date/Time Associated Diagnosis Comments BIOPSY OF PROSTATE,NEEDLE/PUN CH 05/01/2024 10:59 AM BOX LIDDER R97.20, N28.89- ELEVATED PROSTATE SPECIFIC ANTIGEN, RENAL MASS Case Notes SCHED BY FAX 02/28/24 S PHONE ASSESS Special Needs [phone] PATHOLOGY Routine 05/01/2024 12:00 AM BOX LIDDER URINE BACTERIA CULTURE Routine 04/25/2024 5:06 PM BOX LIDDER Elevated PSA Renal mass Screening for prostate cancer Frequent urination HC URINALYSIS AUTO W/O MICRO Routine 04/25/2024 5:03 PM BOX LIDDER Elevated PSA Renal mass Screening for prostate cancer Frequent urination URINE BACTERIA CULTURE Routine 04/04/2024 9:10 AM BOX LIDDER UTI (urinary tract infection) URINE BACTERIA CULTURE Routine 03/16/2024 9:11 AM BOX LIDDER Elevated PSA Renal mass PROTHROMBIN TIME, VENOUS Routine 03/16/2024 9:11 AM BOX LIDDER Elevated PSA Renal mass BASIC METABOLIC PANEL Routine 03/16/2024 9:11 AM BOX LIDDER Elevated PSA Renal mass CBC W/DIFF AUTOMATED Routine 03/16/2024 9:11 AM BOX LIDDER Elevated PSA Renal mass HC URINALYSIS AUTO W/O MICRO Routine 03/16/2024 9:11 AM BOX LIDDER Elevated PSA Renal mass PROCEDURE GENERIC (SCAN ORDER) 02/21/2024 CT ABD WWO CON STAT 01/31/2024 2:19 PM CDT Renal lesion HEPATITIS C ANTIBODY Routine 08/15/2022 11:32 AM CDT Need for hepatitis C screening test from Last 3 Months or Most Recently Relevant to Health Maintenance Results * Pathology (05/01/2024 12:00 AM BOX LIDDER) PATHOLOGY [facility] Department of Laboratory Medicine [address] [place] [id number] , extension [phone] Pathology Report Surgical Pathology Report Name: MARIA VICTORIA QUIROGA Specimen #: [id number] Age: 9 1955 (Age: 68) Location: [facility] Sex: M Procedure Date: 05/01/2024 Hospital #: [id number] Date Received: 05/01/2024 Date Reported: 05/04/2024 Provider: ALBERTO RUELAS MD Source: A: Prostate, left lateral base, needle biopsy B: Prostate, left base, needle biopsy C: Prostate, left lateral mid, needle biopsy D: Prostate, left medial mid, needle biopsy E: Prostate, left lateral apex, needle biopsy F: Prostate, left medial apex, needle biopsy G: Prostate, right lateral base, needle biopsy H: Prostate, right base, needle biopsy I: Prostate, right lateral mid, needle biopsy J: Prostate, right medial mid, needle biopsy K: Prostate, right lateral apex, needle biopsy L: Prostate, right medial apex, needle biopsy Clinical History: Elevated PSA and renal mass FINAL DIAGNOSIS: A. Prostate, left base lateral, needle biopsy: -Prostatic acinar adenocarcinoma, Juan Score 3 + 4 = 7 (Grade Group 2), involving 1 of 1 core and 95% of the tissue. -Perineural invasion is present. B. Prostate, left base, needle biopsy: -Prostatic acinar adenocarcinoma, Hailey Score 3 + 5 = 8 (Grade Group 4), involving 1 of 1 core and 55% of the tissue. -Perineural invasion is present. C. Prostate, left mid lateral, needle biopsy: -Prostatic acinar adenocarcinoma, Hailey Score 3 + 5 = 8 (Grade Group 4), involving 1 of 1 core and 90% of the tissue. -Perineural invasion is present. D. Prostate, left mid medial, needle biopsy: -Prostatic acinar adenocarcinoma, Hailey Score 3 + 4 = 7 (Grade Group 2), involving 1 of 1 core and 75% of the tissue. -Perineural invasion is present. E. Prostate, left apex lateral, needle biopsy: -Prostatic acinar adenocarcinoma, Hailey Score 3 + 5 = 8 (Grade Group 4), involving 1 of 1 core and 90% of the tissue. -Perineural invasion is present. F. Prostate, left apex medial, needle biopsy: -Prostatic acinar adenocarcinoma, Juan Score 3 + 4 = 7 (Grade Group 2), involving 1 of 1 core and 70% of the tissue. -Perineural invasion is present. G. Prostate, right base lateral, needle biopsy: -Benign prostate tissue. H. Prostate, right base, needle biopsy: -Benign prostate tissue. I. Prostate, right mid lateral, needle biopsy: -Benign prostate tissue. J. Prostate, right mid medial, needle biopsy: -Benign prostate tissue. K. Prostate, right apex lateral, needle biopsy: -Prostatic acinar adenocarcinoma, Juan Score 3 + 3 = 6 (Grade Group 1), involving 1 of 1 core and 65% of the tissue. L. Prostate, right apex medial, needle biopsy: -Benign prostate tissue. Diagnosis Comment: A triple immunostain for AMACR/p63/HMWK is performed on blocks B1, E1, and J1 to assess for invasive carcinoma and assist with grading. In blocks B1 and E1, invasive adenocarcinoma is identified characterized by strong reactivity for AMACR and negative basal cell markers p63/HMWK. Scattered single cells are identified, compatible with Juan pattern 5. In block J1, the prostate glands of interest are negative for AMACR and show retained basal cells, compatible with benign prostate glands. An immunohistochemical stain for NKX3.1 is performed on block J1 to confirm the glands of interest are prostate glands. The glands of interest are positive for NKX3.1, compatible with prostate glands. Gross Description: A. Received in formalin, labeled with a patient label and as left base lateral , is a needle core biopsy white-metzger soft tissue that is 1.1 cm in greatest dimension. The specimen is entirely submitted in cassette A1. B. Received in formalin, labeled with a patient label and as left base , is a needle core biopsy of white-metzger soft tissue that is 1.5 cm in greatest dimension. The specimen is entirely submitted in cassette B1. C. Received in formalin, labeled with a patient label and as left mid lateral , is a needle core biopsy of white-metzger soft tissue that is 0.8 cm in greatest dimension. The specimen is entirely submitted in cassette C1. D. Received in formalin, labeled with a patient label and as left mid medial , is a needle core biopsy of white-metzger soft tissue that is 1.1 cm in greatest dimension. The specimen is entirely submitted in cassette D1. E. Received in formalin, labeled with a patient label and as left apex lateral , is a needle core biopsy white-metzger soft tissue that is 1.4 cm in greatest dimension. The specimen is entirely submitted in cassette E1. F. Received in formalin, labeled with a patient label and as left apex medial , is a needle core biopsy of white-metzger soft tissue that is a 1.3 cm in greatest dimension. The specimen is entirely submitted in cassette F1. G. Received in formalin, labeled with a patient label and as right base lateral , is a needle core biopsy of white-metzger soft tissue that is 1.6 cm in greatest dimension. The specimen is entirely submitted in cassette G1. H. Received in formalin, labeled with a patient label and as right base , are 2 needle core biopsies of white-metzger soft tissue that are 0.3 and 0.8 cm in greatest dimension. The specimen is entirely submitted in cassette H1. I. Received in formalin, labeled with a patient label and as right mid lateral , centimeter core biopsy of white-metzger soft tissue that is 1.1 cm in greatest dimension. The specimen is entirely submitted in cassette I1. J. Received in formalin, labeled with a patient label and as right mid medial , is a needle core biopsy of white-metzger soft tissue that is 1.2 cm in greatest dimension. The specimen is entirely submitted in cassette J1. K. Received in formalin, labeled with a patient label and as right apex lateral , is a needle core biopsy of white-metzger soft tissue that is 1.2 cm in greatest dimension. The specimen is entirely submitted in cassette K1. L. Received in formalin, labeled with a patient label and as right apex medial , is a needle core biopsy of white-metzger soft tissue that is 0.8 cm in greatest dimension. The specimen is entirely submitted in cassette L1. All immunohistochemical and histochemical tests were developed by and performed at [facility], [address] [place] [address]. All tests reported here have not been cleared or approved by the U.S. Food and Drug Administration (FDA). This laboratory is regulated under CLIA as qualified to perform high-complexity testing. These tests are used for clinical purposes. They should not be regarded as investigational or for research. Positive and negative controls show appropriate reactivity. Gross examination (when applicable) was performed at [facility], [address] [place] [address]. This case was interpreted and signed out at [facility], [address] [place] [address]. Electronically Signed Out Jonathan Gutierrez M.D. [facility] TISSUE PROSTATIC STRUCTURE / Unknown 05/01/2024 10:13 AM BOX LIDDER Tissue specimen (specimen) PROSTATIC STRUCTURE / Unknown 05/01/2024 10:13 AM BOX LIDDER Tissue specimen (specimen) PROSTATIC STRUCTURE / Unknown 05/01/2024 10:13 AM BOX LIDDER Tissue specimen (specimen) PROSTATIC STRUCTURE / Unknown 05/01/2024 10:13 AM BOX LIDDER Tissue specimen (specimen) PROSTATIC STRUCTURE / Unknown 05/01/2024 10:13 AM BOX LIDDER Tissue specimen (specimen) PROSTATIC STRUCTURE / Unknown 05/01/2024 10:13 AM BOX LIDDER Tissue specimen (specimen) PROSTATIC STRUCTURE / Unknown 05/01/2024 10:13 AM BOX LIDDER Tissue specimen (specimen) PROSTATIC STRUCTURE / Unknown 05/01/2024 10:13 AM BOX LIDDER Tissue specimen (specimen) PROSTATIC STRUCTURE / Unknown 05/01/2024 10:13 AM BOX LIDDER Tissue specimen (specimen) PROSTATIC STRUCTURE / Unknown 05/01/2024 10:13 AM BOX LIDDER Tissue specimen (specimen) PROSTATIC STRUCTURE / Unknown 05/01/2024 10:13 AM BOX LIDDER Tissue specimen (specimen) PROSTATIC STRUCTURE / Unknown 05/01/2024 10:13 AM BOX LIDDER Alberto Ruelas MD PATHOLOGY/CYTOLOGY ORDERA BLES Final Result Performing Organization Address City/[facility]/ZIP Co de Phone Number [facility] [address] [place] [address], [place] [phone] * URINE BACTERIA CULTURE (04/25/2024 5:06 PM BOX LIDDER) Only the most recent of3 resultswithin the time period is included. SPEC DESCRIPTION URINE CLEAN CATCH 04/25/2024 4:57 PM [facility] SPECIAL REQUESTS NO SPECIAL REQUEST 04/25/2024 4:57 PM [facility] CULTURE RESULT POLYMICROBIAL GROWTH CONSISTENT WITH NORMAL GENITAL IRINA. SUSCEPTIBILITIES NOT ROUTINELY PERFORMED. 04/28/2024 7:18 AM [facility] URINE SPECIMEN OBTAINED BY CLEAN CATCH PROCEDURE / Unknown 04/25/2024 5:06 PM BOX LIDDER 04/25/2024 5:07 PM BOX LIDDER Alberto Ruelas MD MICROBIOLOGY - GENERAL OR DERABLES Final Result Performing Organization Address City/[facility]/ZIP Co de Phone Number [facility] [address] [place] [address], [place] [phone] [facility] [address] [place] [address], [place] [phone] * (ABNORMAL) URINALYSIS (04/25/2024 5:03 PM BOX LIDDER) Only the most recent of2 resultswithin the time period is included. COLOR (U) YELLOW 04/25/2024 5:49 PM [facility] TRANSPARENCY CLEAR 04/25/2024 5:49 PM [facility] SPECIFIC GRAVITY (U) 1.025 1.002 - 1.030 04/25/2024 5:49 PM [facility] U PH 6.0 4.5 - 8.0 04/25/2024 5:49 PM [facility] LEUKOCYTES (U) NEGATIVE NEGATIVE 04/25/2024 5:49 PM [facility] NITRITES NEGATIVE NEGATIVE 04/25/2024 5:49 PM [facility] PROTEIN RANDOM (U) 1+(A) NEGATIVE 04/25/2024 5:49 PM [facility] GLUCOSE (U) NEGATIVE NEGATIVE 04/25/2024 5:49 PM [facility] KETONES MG/DL (U) NEGATIVE NEGATIVE 04/25/2024 5:49 PM [facility] UROBILINOGEN 1.0(A) NORMAL EU/DL 04/25/2024 5:49 PM [facility] BILIRUBIN (U) NEGATIVE NEGATIVE 04/25/2024 5:49 PM ([facility] BLOOD (U) NEGATIVE NEGATIVE 04/25/2024 5:49 PM [facility] WBC/HPF 0-5 /HPF 04/25/2024 5:49 PM [facility] RBC/HPF 0-2 /HPF 04/25/2024 5:49 PM [facility] EPI/HPF 0-5 /HPF 04/25/2024 5:49 PM BOX LIDDER [facility] BACTERIA (U) 3+ /HPF 04/25/2024 5:49 PM BOX LIDDER [facility] MUCUS 4+ 04/25/2024 5:49 PM BOX LIDDER [facility] URINE SPECIMEN OBTAINED BY CLEAN CATCH PROCEDURE / Unknown 04/25/2024 5:03 PM BOX LIDDER Alberto Ruelas MD URINE ORDERABLES Final Re sult Performing Organization Address [facility]/ZIP Co de Phone Number [facility] [address] [place] [address], [place] [phone] * PROTIME/INR, VENOUS (03/16/2024 9:11 AM BOX LIDDER) PROTIME 12.3 9.4 - 12.5 SEC 03/16/2024 9:46 AM [facility] INR 1.1 0.9 - 1.1 03/16/2024 9:46 AM [facility] Comment: Recommended INR Therapeutic Goals: 2.0-3.0 Routine Therapy 2.5-3.5 Mechanical Prosthetic Valves (High Risk) 03/16/2024 9:11 AM BOX LIDDER Alberto Ruelas MD LABORATORY Final Res ult [facility] [address] [place] [address], [place] [phone] * (ABNORMAL) BASIC METABOLIC PANEL (03/16/2024 9:11 AM BOX LIDDER) GLUCOSE 97 70 - 99 MG/DL 03/16/2024 10:06 AM [facility] BUN 20(H) 7 - 18 MG/DL 03/16/2024 10:06 AM [facility] CREATININE S/P/B 0.90 0.7 - 1.3 MG/DL 03/16/2024 10:06 AM [facility] SODIUM S/P/B 141 136 - 145 MMOL/L 03/16/2024 10:06 AM [facility] POTASSIUM S/P/B 4.5 3.5 - 5.1 MMOL/L 03/16/2024 10:06 AM [facility] CHLORIDE S/P/B 105 100 - 108 MMOL/L 03/16/2024 10:06 AM [facility] CO2 29.2 21 - 32 MMOL/L 03/16/2024 10:06 AM [facility] CALCIUM S/P/B 8.8 8.5 - 10.1 MG/DL 03/16/2024 10:06 AM [facility] ANION GAP 6.8 5 - 15 MMOL/L 03/16/2024 10:06 AM [facility] BUN CREATININE RATIO 22.2 6 - 26 03/16/2024 10:06 AM [facility] GFR ESTIMATE >90 >90 ML/MIN/1.7 3 M2 03/16/2024 10:06 AM [facility] Comment: NOTE: eGFR is not calculated for patients <18 years of age. This is an estimated GFR calculation using the new CKD EPI creatinine equation without race and so does not require a correction factor for race. This estimated GFR should not be used for calculating drug doses. 03/16/2024 9:11 AM BOX LIDDER us Alberto Ruelas MD LABORATORY Final Res ult [facility] [address] [place] [address], [place] [phone] * (ABNORMAL) CBC W/DIFF AUTOMATED (03/16/2024 9:11 AM [facility] Signature WBC 4.83 4.50 - 11.00 x10'3/uL 03/16/2024 9:19 AM [facility] RBC 4.65(L) 4.70 - 6.10 x10'6/uL 03/16/2024 9:19 AM [facility] HGB 12.9(L) 14.0 - 18.0 G/DL 03/16/2024 9:19 AM [facility] HCT 39.4(L) 43.0 - 54.0 % 03/16/2024 9:19 AM [facility] MCV 84.7 80.0 - 94.0 FL 03/16/2024 9:19 AM [facility] MCH 27.7 27.0 - 31.0 PG 03/16/2024 9:19 AM [facility] MCHC 32.7 32.0 - 36.0 G/DL 03/16/2024 9:19 AM [facility] RDW 13.5 11.5 - 14.5 % 03/16/2024 9:19 AM [facility] PLT 146 130 - 400 x10'3/uL 03/16/2024 9:19 AM [facility] MPV 10.8 9.3 - 12.2 FL 03/16/2024 9:19 AM [facility] CBC COMMENT AUTOMATED RBC MORPHOLOGY AND PLATELET EVALUATION NORMAL 03/16/2024 9:19 AM [facility] NEUTROPHILS % 59.0 % 03/16/2024 9:19 AM [facility] LYMPHOCYTES % 27.7 % 03/16/2024 9:19 AM [facility] MONOCYTES % 7.5 % 03/16/2024 9:19 AM [facility] EOSINOPHILS 4.6 % 03/16/2024 9:19 AM [facility] BASOPHILS 1.2 % 03/16/2024 9:19 AM [facility] IMMATURE GRANS % 0.0 % 03/16/20 9:19 AM [facility] NRBC % 0.0 % 03/16/2024 9:19 AM [facility] ABS. NEUTROPHILS TOTAL 2.85 1.80 - 7.70 x10'3/uL 03/16/2024 9:19 AM [facility] ABS. LYMPHOCYTES 1.34 1.00 - 4.80 x10'3/uL 03/16/2024 9:19 AM [facility] ABS. MONOCYTES 0.36 0.30 - 0.82 x10'3/uL 03/16/2024 9:19 AM [facility] ABS. EOSINOPHILS 0.22 0.04 - 0.54 x10'3/uL 03/16/2024 9:19 AM [facility] ABS. BASOPHILS 0.06 0.01 - 0.08 x10'3/uL 03/16/2024 9:19 AM [facility] [facility]PITAL LAB ABS. IMMATURE GRANULOCYTES 0.00 0.00 - 0.49 x10'3/uL 03/16/2024 9:19 AM [facility] ABS. NUCLEATED RBC'S 0.00 0.00 - 0.01 x10'3/uL 03/16/2024 9:19 AM [facility] 03/16/2024 9:11 AM BOX LIDDER us Alberto Ruelas MD LABORATORY Final Res ult [facility] () [facility] [address] [id number], [place] [phone] * PROCEDURE GENERIC (SCAN ORDER) (02/21/2024) 02/21/2024 us [facility] Scanned SCANNING Final Resu lt * CT ABD WWO CON (01/31/2024 2:19 PM CDT) Anatomical Region Laterality Modality Abdomen Computed Tomogra phy 01/31/2024 2:47 PM CDT Impressions 01/31/2024 2:53 PM CDT Impression: Inferior pole left renal lesion does not demonstrate significant enhancement, and is compatible with a hemorrhagic or proteinaceous cyst. No suspicious renal lesions. Ordered By: KAELA CARRANZA Interpreted By: Cornelius Mckeon MD, 01/31/2024 2:47 PM Narrative 01/31/2024 2:[address] [facility] [address] [place] [address] abdomen with and without IV contrast Comparison: CT abdomen pelvis 01/17/2024. Indication: Indeterminate renal lesion. Technique: CT imaging was performed of the abdomen prior to and following the administration of intravenous contrast, per renal mass protocol. Iodinated contrast was used due to the indications for the examination, to improve disease detection and further define anatomy. Coronal and sagittal reformatted images were generated and reviewed. A dose lowering technique was utilized for this procedure which may include but is not limited to dose reduction techniques, automated exposure control, and/or the use of iterative reconstruction in accordance with ALARA principle. Findings: - Lower Thorax: No suspicious pulmonary abnormalities. No pleural or pericardial effusions. Calcified granuloma in the right middle lobe. Mild bibasilar atelectasis. Mild to moderate coronary artery calcifications. - Liver: Normal in morphology and enhancement. No suspicious hepatic masses are identified. The portal and hepatic veins are patent. - Biliary and Gallbladder: No intrahepatic or extrahepatic biliary ductal dilatation. The gallbladder is surgically absent. - Spleen: Normal in appearance. - Pancreas: Normal in appearance. - Adrenal Glands: Thickening of the right adrenal gland without discrete nodule. No left adrenal lesion. - Kidneys: Symmetric in size and enhancement. Previously seen indeterminate inferior pole left renal lesion measuring 3.1 cm is redemonstrated. This does not demonstrate significant enhancement (contrast 34 HU, postcontrast HU 36, and delayed HU 36). Findings are compatible with a hemorrhagic or proteinaceous cyst. No stones or hydronephrosis - Abdominal and Pelvic Vasculature: No abdominal aortic aneurysm. Moderate to severe atherosclerotic plaque. - Gastrointestinal Tract: No abnormal dilation or wall thickening. Moderate colonic stool burden. The appendix is within normal limits. - Peritoneum/Mesentery/Retroperitoneum: No free fluid. No free intraperitoneal air. - Lymph Nodes: No retroperitoneal or mesenteric lymphadenopathy. - Body Wall: Unremarkable. - Musculoskeletal: No aggressive appearing osseous lesions. Mild lumbar spondylosis. Procedure Note Cornelius Mckeon MD - 01/31/2024 [place] [address] CT abdomen with and without IV contrast Comparison: CT abdomen pelvis 01/17/2024. Indication: Indeterminate renal lesion. Technique: CT imaging was performed of the abdomen prior to and followingthe administration of intravenous contrast, per renal mass protocol.Iodinated contrast was used due to the indications for the examination, toimprove disease detection and further define anatomy. Coronal and sagittalreformatted images were generated and reviewed. A dose lowering techniquewas utilized for this procedure which may include but is not limited todose reduction techniques, automated exposure control, and/or the use ofiterative reconstruction in accordance with ALARA principle. Findings: - Lower Thorax: No suspicious pulmonary abnormalities. No pleural orpericardial effusions. Calcified granuloma in the right middle lobe. Mildbibasilar atelectasis. Mild to moderate coronary artery calcifications. - Liver: Normal in morphology and enhancement. No suspicious hepaticmasses are identified. The portal and hepatic veins are patent. - Biliary and Gallbladder: No intrahepatic or extrahepatic biliary ductaldilatation. The gallbladder is surgically absent. - Spleen: Normal in appearance. - Pancreas: Normal in appearance. - Adrenal Glands: Thickening of the right adrenal gland without discretenodule. No left adrenal lesion. - Kidneys: Symmetric in size and enhancement. Previously seenindeterminate inferior pole left renal lesion measuring 3.1 cm isredemonstrated. This does not demonstrate significant enhancement(contrast 34 HU, postcontrast HU 36, and delayed HU 36). Findings arecompatible with a hemorrhagic or proteinaceous cyst. No stones orhydronephrosis - Abdominal and Pelvic Vasculature: No abdominal aortic aneurysm.Moderate to severe atherosclerotic plaque. - Gastrointestinal Tract: No abnormal dilation or wall thickening.Moderate colonic stool burden. The appendix is within normal limits. - Peritoneum/Mesentery/Retroperitoneum: No free fluid. No freeintraperitoneal air. - Lymph Nodes: No retroperitoneal or mesenteric lymphadenopathy. - Body Wall: Unremarkable. - Musculoskeletal: No aggressive appearing osseous lesions. Mild lumbarspondylosis. Impression: Inferior pole left renal lesion does not demonstrate significantenhancement, and is compatible with a hemorrhagic or proteinaceous cyst.No suspicious renal lesions. Ordered By: KAELA CARRANZA Interpreted By: Cornelius Mckeon MD, 01/31/2024 2:47 PM Kaela Carranza [facility]- CT Final Re sult * HEPATITIS C AB ([facility] ONLY) (08/15/2022 11:32 AM CDT) HEPATITIS C AB NON-REACTI VE NON-REACTI VE 08/15/2022 7:42 PM CDT [facility] 08/15/2022 11:3 2 AM CDT Kaela Carranza [facility] Final Re sult [facility] [address] [place] [address], [place] [phone] from Last 3 Months or Most Recently Relevant to Health Maintenance Insurance MEDICARE [facility] Care Teams Painter Foreman Relationship Specialty Start Date End Date Kaela Carranza, SENIOR COBOL DEVELOPER-BC [address] [place] [address] PCP - General NURSE PRACTITIONER 08/15/22
--- OUTSIDE RECORDS SUMMARY | 2024-05-21 13:56 | XMS_ITS | Referral Summary ---
Author Organization [facility] Address [address] [place] [address] Care Team Providers Care Manager Of Engineering Name Role Phone Kaela Chacon FISHER EEL SPEAR-MELT HOUSE DRAG OPERATOR Primary Care Provider Source Comments [facility],non-owned Affiliates and Associated Physician Practices is amultiple site organization consisting of ambulatory clinics and hospital sitesin [place], [place], [place] and [place]. This disclosure is being madepursuant to the Care Everywhere program and may not contain all information available regarding this patient. Last updated 17.[facility] Encounters Date Type Department Care Team Description 05/02/2024 Travel 05/02/2024 3:20 PM PARAFFIN MACHINE OPERATOR Office Visit [facility] - Ophthalmology [facility] [place] [address] Jose Francisco Santos MD Postsurgical states following surgery of eye and adnexa (Primary Dx) 04/24/2024 Travel 04/24/2024 9:10 AM PARAFFIN MACHINE OPERATOR - 04/24/2024 10:10 AM PARAFFIN MACHINE OPERATOR Surgery [facility] [address] [place] [phone] Jose Francisco Santos MD Cyclophotocoagulation 360 degrees left eye, Kenalog depot- LEFT EYE 04/24/2024 9:20 AM PARAFFIN MACHINE OPERATOR Anesthesia Event [facility] [address] [place] [address] Steven Barnett MD Rinderer, Mallory, FISHER EEL SPEAR-MELT HOUSE DRAG OPERATOR 04/24/2024 7:39 AM PARAFFIN MACHINE OPERATOR - 04/24/2024 10:31 AM PARAFFIN MACHINE OPERATOR Hospital Encounter [facility] [address] [place] [address] Jose Francisco Santos MD Surgery General Discharge Disposition: Home or Self Care 02/28/2024 Travel 02/20/2024 Travel 02/20/2024 10:15 AM PARAFFIN MACHINE OPERATOR Office Visit [facility] - Neurosurgery [address] [facility] [place] [address] Genoveva Wheeler, FISHER EEL SPEAR-Filemon Jeronimo MD Cerebral aneurysm (HCC) (Primary Dx) 02/20/2024 9:27 AM PARAFFIN MACHINE OPERATOR - 02/20/2024 11:59 PM PARAFFIN MACHINE OPERATOR Hospital Encounter [facility] SC[facility] [address] [place] [address] Genoveva Wheeler APRN-CNP Discharge Disposition: Home or Self Care from Last 3 Months Allergies No known active allergies Medications * [...] 7:57 PM Neovascular glaucoma, left, 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 Overview (01/12/2023): As noted elsewhere, we suspect [...] Recorded Patient Health Questionnaire-2 Score 0 07/12/2023 [facility] of Occupat ional Health - Occupational Stress [...] place to sleep or slept in a mcc (including now)? No 07/11/2023 Sex and Gender Information Value Date Recorded Sex Assigned at Not on file Gender Identity Not on file Sexual Orientation Not on file Last Filed Vital Signs Vital Sign Reading Time Taken Comments Blood Pressure 124/63 04/24/2024 10:01 AM PARAFFIN MACHINE OPERATOR Pulse 72 04/24/2024 9:51 AM PARAFFIN MACHINE OPERATOR Temperature 36.4 C (97.5 F) 04/24/2024 9:51 AM PARAFFIN MACHINE OPERATOR Respiratory Rate 12 04/24/2024 9:51 AM PARAFFIN MACHINE OPERATOR Oxygen Saturation 96% 04/24/2024 9:51 AM PARAFFIN MACHINE OPERATOR Inhaled Oxygen Concentration - - Weight 98.3 kg (216 lb 12.8 oz) 04/24/2024 8:14 AM PARAFFIN MACHINE OPERATOR Height 185.4 cm (6' 1 ) 04/24/2024 8:14 AM PARAFFIN MACHINE OPERATOR Body Mass Index 28.6 04/24/2024 8:14 AM PARAFFIN MACHINE OPERATOR Functional Status Functional Status Response Date of Assess ment Is person deaf or have serious hearing difficult y? No 02/08/2024 Is person blind or have serious difficulty seein g? No 02/08/2024 Does person have serious dif ficulty walking/climbing stairs? No 02/08/2024 Does person have difficulty dressing/bathing? No 02/08/2024 Does person have difficulty doing errands alone? Yes 02/08/2024 Cognitive Status Response Date of Assessm ent Does person have difficulty concentrating/remembering/making decisions? Yes 02/08/2024 Plan of Treatment Upcoming Encounters Date Type Department Care Team (Late st Contact Info) Description 06/18/2024 9:00 AM CDT Office Visit [facility] - Ophthalmology [address] [place] [phone] Jose Francisco Santos MD [address] [place] [phone] 08/20/2024 9:00 AM CDT Appointment [facility] [address] [place] [phone] Genoveva Wheeler, FISHER EEL SPEAR-MELT HOUSE DRAG OPERATOR [address] [place] [phone] 08/20/2024 10:00 AM CDT Office Visit [facility] - Neurosurgery [address] [facility] [place] [address] Filemon Patel MD [address] [place] [phone] Medical Devices Implanted Type Area Show Host/Hostess Device Identifier Shelf Expiration Date Model / Serial / Lot Coil Hydroframe Hdrcl Vtrk 6cm 3mm 10 Implanted:Qty: 1 on 07/12/2023 by Daren Rudolph MD at [facility] [place] [facility] Right: [employer] 11/07/2026 [id number] / / [id number] Procedures Procedure Name Priority Date/Time Associated Diagnosis Comments [place] CILIARY BDY DESTRUC; CYCLOPHOTOCOAG TRANSSCLERAL 04/24/2024 9:16 AM PARAFFIN MACHINE OPERATOR Neovascular glaucoma, left, severe stage Special Needs SUPINE, MAC BLOCK CT ANGIO BRAIN Routine 02/20/2024 9:51 AM PARAFFIN MACHINE OPERATOR Cerebral aneurysm (HCC) BASIC METABOLIC PANEL (CALCIUM TOTAL) AM Draw 02/08/2024 8:57 AM CDT Cerebral aneurysm (HCC) from Last 3 Months or Most Recently Relevant to Health Maintenance Results * CT ANGIO BRAIN (02/20/2024 9:51 AM PARAFFIN MACHINE OPERATOR) Anatomical Region Laterality Modality Head Computed Tomogra phy 02/20/2024 10:3 2 AM PARAFFIN MACHINE OPERATOR Impressions 02/20/2024 10:46 AM PARAFFIN MACHINE OPERATOR IMPRESSION: 1. No acute intracranial hemorrhage. 2. 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 Accounting for the beam hardening artifacts from the embolization coil, no evidence of residual or recurrent aneurysm. 3. 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 > Interpreting Provider: Cailin Swift MD on 02/20/2024 10:46 AM Narrative 02/20/2024 10:46 AM PARAFFIN MACHINE OPERATOR PROCEDURE: CT ANGIO BRAIN, DATE/TIME OF EXAM: 02/20/2024 9:52 AM, LOCATION [facility] INDICATION: I67.1: Cerebral aneurysm (HCC) ADDITIONAL CLINICAL [...] DATE/TIME OF EXAM: 02/20/2024 9:52 AM, LOCATION [facility] INDICATION: I67.1: Cerebral aneurysm (HCC) ADDITIONAL CLINICAL [...] MD on 02/20/2024 10:46 AM Genoveva Wheeler [facility]ER EEL SPEAR-[facility] CT ORDERABLE S * BASIC METABOLIC PANEL (CALCIUM TOTAL) (02/08/2024 8:57 AM CDT) BUN 17 7 - 26 mg/dL 02/08[facility]2024 9:55 [facility] Creatinine 0.77 0.71 - 1.16 mg/dL 02/08/2024 9:55 AM CDT [facility] Sodium 138 136 - 145 mmol/L 02/08/2024 9:55 AM CDT [facility] Potassium 4.1 3.5 - 4.5 mmol/L 02/08/2024 9:[facility] Chloride 106 98 - 107 mmol/L 02/08/2024 9:55 AM [facility] CO2 24 22 - 29 mmol/L 02/08/2024 9:55 AM [facility] Glucose 90 70 - 99 mg/dL 02/08/2024 9:55 AM [facility] Calcium 9.1 8.4 - 10.2 mg/dL 02/08/2024 9:55 AM [facility] Anion Gap 8 6 - 16 02/08/2024 9:55 AM [facility] BUN/Creatinine Ratio 22 7 - 23 02/08/2024 9:55 AM [facility] Osmolality Calculated 287 275 - 295 mOsm/kg 02/08/2024 9:55 AM [facility] eGFR by CKD-EPI >90 >=90 mL/min/1.7 3 m2 02/08/2024 9:55 AM [facility] Blood BLOOD SPECIMEN / Unknown Venipuncture / Unknown 02/08/2024 8:57 AM CDT 02/08/2024 9:23 AM [facility] Azalia Murillo MD LAB - CHEMISTRY GENNARO HASTINGS [facility] Organization Address City/State/ZIP Co de Phone Number [facility] [address] [place] [address], [facility] [phone] from Last 3 Months or Most Recently Relevant to Health Maintenance Advance Directives * Full Code (Latest Code Status on File) Date Activated Date Inactivated Comments 07/10/2023 8:50 PM 07/26/2023 6:35 PM * Full Code Date Activated Date Inactivated Comments 12/02/2022 9:30 AM 12/07/2022 7:34 PM Care Teams Manager Of Engineering Relationship Specialty Start Date End Date Kaela Chacon, FISHER EEL SPEAR-MELT HOUSE DRAG OPERATOR [address] [place], [place] [id number] PCP - General Dog Handler 01/10/23
--- OUTSIDE RECORDS SUMMARY | 2024-05-21 13:56 | XMS_ITS | Encounter Summary ---
Author Organization [facility] Health Address [address] [place] [address] Care Team Providers Care Executive Admin Name Role Phone Kaela Chacon APRN-SAP MANAGER Primary Care Provider Encounter Details Date Type Department Care Team (Late st Contact Info) Description 01/10/2023 Ophth Exam [facility] - Ophthalmology [address] [place] [address] Guicho Delgado, DO [address] [facility] [place] [address] Social History Tobacco Use Types Packs/Day Years Used Date Smoking Tobacco: Some Days Cigarettes 0.3 42.1 Started: 1983 Smokeless Tobacco: Never Alcohol Use Standard Drinks/Week Comments Not Currently 10 (1 standard drink = 0.6 oz pu re alcohol) AUDIT-C Answer Date Recorded Q1: How often do you have a drink containing alc ohol? 2-4 times a month 12/02/2022 Q2: How many drinks containi ng alcohol do you have on a typical day when you are drinking? 5 or 6 12/02/2022 Q3: How often do you have si x or more drinks on one occasion? Weekly 12/02/2022 Overall Financial Resource Strain (CARDIA) Fernando wing Date Recorded How hard is it for you to pa y for the very basics like food, housing, medical care, and heating? Not very hard 12/02/2022 PHQ-2 Answer Date Recorded Patient Health Questionnaire-2 Score 0 12/06/2022 [facility] of Occupat ional Health - Occupational Stress Questionnaire Answer Date Recorded Do you feel stress - tense, restless, nervous, or anxious, or unable to sleep at night because your mind is troubled all the time - these days? Not at all 12/02/2022 Hunger Vital Sign Answer Date Recorded Within the past 12 months, y ou worried that your food would run out before you got the money to buy more. Never true 12/03/19 23 Within the past 12 months, t he food you bought just didn't last and you didn't have money to get more. Never true 12/02/2022 PRAPARE - Transportation Answer Date Re corded In the past 12 months, has l ack of transportation kept you from medical appointments or from getting medications? No 11/09 In the past 12 months, has l ack of transportation kept you from meetings, work, or from getting things needed for daily living? No 12/02/2022 Housing Stability Vital Sign Answer Chris e Recorded In the last 12 months, was t here a time when you were not able to pay the mortgage or rent on time? No 12/02/2022 In the last 12 months, how many places have you lived? 1 12/02/2022 In the last 12 months, was t here a time when you did not have a steady place to sleep or slept in a senior care (including now)? No 12/02/2022 Sex and Gender Information Value Date Recorded Sex Assigned at Not on file Gender Identity Not on file Sexual Orientation Not on file documented as of this encounter Functional Status Functional Status Response Date of Assess ment Is person deaf or have serious hearing difficult y? No 12/02/2022 Is person blind or have serious difficulty seein g? No 12/02/2022 Does person have serious dif ficulty walking/climbing stairs? No 12/02/2022 Does person have difficulty dressing/bathing? No 12/02/2022 Does person have difficulty doing errands alone? No 12/02/2022 Cognitive Status Response Date of Assessm ent Does person have difficulty concentrating/remembering/making decisions? No 12/02/2022 documented as of this encounter Plan of Treatment Upcoming Encounters Date Type Department Care Team (Late st Contact Info) Description 06/18/2024 9:00 AM CDT Office Visit [facility] - Ophthalmology [address] [facility] [place] [phone] Jose Francisco Santos MD [address] [place] [phone] 08/20/2024 9:00 AM CDT Appointment [facility] [address] [place] [phone] Genoveva Wheeler DRILL PRESS OPERATOR FOR METAL-SAP MANAGER [address] [place] [phone] 08/20/2024 10:00 AM CDT Office Visit [facility] - Neurosurgery [address] [place] [phone] Filemon Patel MD [address] [place] [phone] documented as of this encounter Visit Diagnoses Not on filedocumented in this encounter Care Teams Executive Admin Relationship Specialty Start Date End Date Kaela Chacon, DRILL PRESS OPERATOR FOR METAL-SAP MANAGER [address] [place] [address] PCP - General Strategic Client Executive 01/10/23 documented as of this encounter
--- OUTSIDE RECORDS SUMMARY | 2024-05-21 13:56 | XMS_ITS | Encounter Summary ---
Author Organization [facility] Address [address] [place] [address] Care Team Providers Care Project Engineer Chemicals Name Role Phone Kaela Chacon [facility] Primary Care Provider + Encounter Details Date Type Department Care Team (Late st Contact Info) Description 03/28/2024 Prep for Procedure [facility] Pre-Admission Testing [address] [place], [place] [phone] Paul Trejo MD [address] [facility] [address] [place] [address] Social History Tobacco Use Types Packs/Day Years Used Date Smoking Tobacco: Former Cigarettes 0.3 40 Passive Smoke Exposure: Past Smokeless Tobacco: Never Comments:3 packs per week Quit Nov 2022 - smoked 40 1 ppd Alcohol Use Standard Drinks/Week Comments Not Currently 0 (1 standard drink = 0.6 oz pur e alcohol) rare PHQ-2 Answer Date Recorded Patient Health Questionnaire-2 Score 0 01/17/2024 Sex and Gender Information Value Date Recorded Sex Assigned at Male 05/01/2024 9:58 AM GLOBAL ACCOUNT DIRECTOR Legal Sex Male 5:56 PM CDT Gender Identity Not on file Sexual Orientation Not on file documented as of this encounter Plan of Treatment Not on file documented as of this encounter Visit Diagnoses Not on filedocumented in this encounter Care Teams Project Engineer Chemicals Relationship Specialty Start Date End Date Kaela Chacon [facility] [address] [place] [address] PCP - General NURSE PRACTITIONER 08/15/22 documented as of this encounter
== END 2024-05-21 13:09 | disposition home or self-care (01) ==
PROVIDERS: Visit Provider Urology
DX: C61 Malignant neoplasm of prostate (principal)
CPT/HCPCS: 78815; A9596